=== PATIENT | female | born 1950 | race Caucasian/White ===

== ENCOUNTER → 2021-04-23 14:50 | Outpatient (BNVA) | payer MEDICARE, MEDICAID, SELFPAY | PROVIDERS: Visit Provider Physician Assistant ==

== ENCOUNTER → 2021-06-01 08:14 | Outpatient (BNVA) | payer MEDICARE, MEDICAID, SELFPAY | PROVIDERS: Visit Provider Surgery | DX: Z13.89 Encounter for screening for other disorder (principal) | CPT/HCPCS: Q3014 ==

== ENCOUNTER 2021-06-04 09:02 | Outpatient (REF) | payer MEDICARE, MEDICAID, SELFPAY ==
--- NOTE | ~2021-06-04 | XR_ITS ---
EXAMINATION: XR CHEST 2 VIEWS CLINICAL INFORMATION: History of obesity. COMPARISON: None. TECHNIQUE: Frontal and lateral views of the chest were obtained. FINDINGS: The heart, great vessels, pulmonary vasculature and mediastinum are normal. The lungs show no focal infiltrate, effusion or pneumothorax. There is no acute osseous abnormality. There is multi-level thoracic degenerative disc disease and spondylosis. XR/XR chest 2V IMPRESSION: No active cardiopulmonary disease.
--- NOTE | 2021-06-04 09:11 | ECG_ITS ---
Test Reason : E66.9 Blood Pressure : / mmHG Vent. Rate : 083 BPM Atrial Rate : 083 BPM P-R Int : 134 ms QRS Dur : 086 ms QT Int : 358 ms P-R-T Axes : 057 020 033 degrees QTc Int : 420 ms Normal sinus rhythm Normal ECG When compared with ECG of 09-JAN-2006 06:53, No significant change was found Referred By: Timo Up Electronically Signed By:CHRIS THOMPSON MD
[2021-06-04 09:25] LABS: MANUAL DIFF FLAG NO
[2021-06-04 10:08] LABS: Basophils Absolute Auto 0.1 X10*3/uL (0.0-0.2); Basophils Percent Auto 1.5 % (0-2); Eosinophils Absolute Auto 0.2 X10*3/uL (0.0-0.4); Eosinophils Percent Auto 3.9 % (0-4); Hematocrit 44.8 % (37.0-47.0); Hemoglobin 14.5 g/dl (12.0-16.0); Imm Gran Abs Auto 0.02 X10*3/uL (0.00-0.03); Imm Gran Pct Auto 0.4 % (0.0-0.4); Lymphocytes Absolute Auto 1.6 X10*3/uL (1.2-4.9); Lymphocytes Percent Auto 29.9 % (20-40); Mean Corpuscular HGB Conc 32.4 g/dl (31.0-35.0); Mean Corpuscular Hemoglobin 28.8 pg (27.0-33.0); Mean Corpuscular Volume 88.9 fL (80.0-98.0); Mean Platelet Volume 9.9 fL (9.4-12.3); Monocytes Absolute Auto 0.6 X10*3/uL (0.1-1.2); Monocytes Percent Auto 11.3 % (2-11); Neutrophils Absolute Auto 2.9 x10*3/uL (2.0-8.3); Platelet Count 193 X10*3/uL (160-400); Red Blood Count 5.04 X10*6/uL (4.20-5.50); Red Cell Distribution Width 14.2 % (11.0-16.0); White Blood Count 5.4 X10*3/uL (4.8-10.8)
[2021-06-04 10:23] LABS: Estimated Average Glucose 134 mg/dL; Hemoglobin A1c % 6.3 %
[2021-06-04 11:23] LABS: Folate 9.2 ng/mL (> or = 4.0); Vitamin B12 332 pg/mL (200-900)
[2021-06-04 11:36] LABS: Alanine Aminotransferase 45 U/L (0-31); Albumin Level 4.2 g/dL (3.5-5.0); Alkaline Phosphatase 72 U/L (39-117); Anion Gap 16 (12-20); Aspartate Amino Transferase 26 U/L (5-31); Bilirubin Total 0.7 mg/dL (0.0-1.0); Blood Urea Nitrogen 12 mg/dL (9-16); C Reactive Protein 0.13 mg/dL (< or = 0.50); Calcium 10.2 mg/dL (8.4-10.2); Carbon Dioxide 26 mmol/L (22-29); Chloride 101 mmol/L (96-108); Cholesterol 172 mg/dL; Estimated Glomerular Filt Rate > 60; Glucose Random 147 mg/dL (60-115); HDL Cholesterol 57 mg/dL; Iron 112 mcg/dL (30-160); LDL Cholesterol Calculated 102 mg/dl; Percent Iron Saturation 28 % (15-50); Potassium 4.6 mmol/L (3.3-5.1); Sodium 138 mmol/L (135-145); Total Iron Binding Capacity 401 mcg/dL (228-428); Total Protein 7.5 g/dL (6.5-8.0); Triglycerides 68 mg/dL; Unsaturated Iron Binding 289 ug/dL
[2021-06-04 12:00] LABS: Ferritin 102 ng/mL (10-250); Insulin 13 uU/mL (2-29); Vitamin D 25-OH Total 11.9 ng/mL (>30)
[2021-06-05 17:46] LABS: PTHI 60 pg/mL (14-64)
[2021-06-07 03:52] LABS: Zinc 116 mcg/dL (60-130)
[2021-06-10 10:36] LABS: Vitamin A 41 mcg/dL (38-98)
[2021-06-11 06:21] LABS: Vitamin B1 8 nmol/L (8-30)
== END 2021-06-04 09:03 | disposition home or self-care (01) ==
LOC: HO.LAB 09:02
PROVIDERS: PCP Nurse Practitioner Family; Visit Provider Surgery
DX: E66.9 Obesity, unspecified (principal); Z68.39 Body mass index [BMI] 39.0-39.9, adult; I10 Essential (primary) hypertension; E11.9 Type 2 diabetes mellitus without complications; K21.9 Gastro-esophageal reflux disease without esophagitis
CPT/HCPCS: 36415; 71046; 80053; 80061; 82306; 82607; 82728; 82746; 83036; 83525; 83540; 83970; 84425; 84443; 84590; 84630; 85025; 86140; 93005

== ENCOUNTER → 2021-06-20 14:43 | Outpatient (BNVA) | payer MEDICARE, MEDICAID, SELFPAY | PROVIDERS: PCP Nurse Practitioner Family; Visit Provider Counselor Mental Health | DX: F41.1 Generalized anxiety disorder (principal); F41.0 Panic disorder [episodic paroxysmal anxiety]; E66.9 Obesity, unspecified | CPT/HCPCS: 90791 ==

== ENCOUNTER 2021-06-21 12:33 | Outpatient (REF) | payer MEDICARE, MEDICAID, SELFPAY ==
[2021-06-22 11:10] LABS: H Pylori Breath Test Negative (Negative)
== END 2021-06-21 12:34 | disposition home or self-care (01) ==
LOC: HO.LNP 12:33
PROVIDERS: Surgery; PCP Nurse Practitioner Family; Referring Provider Nurse Practitioner Family; Visit Provider Physician Assistant
DX: E66.9 Obesity, unspecified (principal); Z68.39 Body mass index [BMI] 39.0-39.9, adult; I10 Essential (primary) hypertension; E11.9 Type 2 diabetes mellitus without complications; K21.9 Gastro-esophageal reflux disease without esophagitis
CPT/HCPCS: 83013; 99211

== ENCOUNTER → 2021-06-25 11:47 | Outpatient (BNVA) | payer MEDICARE, MEDICAID, SELFPAY | PROVIDERS: PCP Nurse Practitioner Family; Visit Provider Dietitian, Registered | DX: Z13.89 Encounter for screening for other disorder (principal) ==

== ENCOUNTER → 2021-07-02 11:31 | Outpatient (BNVA) | payer MEDICARE, MEDICAID, SELFPAY | PROVIDERS: PCP Nurse Practitioner Family; Visit Provider Dietitian, Registered | DX: Z13.89 Encounter for screening for other disorder (principal) ==

== ENCOUNTER → 2021-07-04 08:13 | Outpatient (BNVA) | payer MEDICARE, MEDICAID, SELFPAY | PROVIDERS: Visit Provider Surgery | DX: E66.9 Obesity, unspecified (principal); Z68.41 Body mass index [BMI] 40.0-44.9, adult | CPT/HCPCS: Q3014 ==

== ENCOUNTER → 2021-07-09 11:58 | Outpatient (BNVA) | payer MEDICARE, MEDICAID, SELFPAY | PROVIDERS: PCP Nurse Practitioner Family; Visit Provider Dietitian, Registered | DX: E66.9 Obesity, unspecified (principal); Z68.37 Body mass index [BMI] 37.0-37.9, adult; E11.9 Type 2 diabetes mellitus without complications; Z71.3 Dietary counseling and surveillance | CPT/HCPCS: 97802 ==

== ENCOUNTER 2021-07-23 09:30 | Outpatient (REF) | payer MEDICARE, MEDICAID, SELFPAY ==
--- NOTE | ~2021-07-23 | FL_ITS ---
EXAMINATION: XR FLUOROSCOPY UPPER GI WITH AIR CLINICAL INFORMATION: Obesity COMPARISON: None TECHNIQUE: Routine upper GI contrast study was performed. FINDINGS: Following oral administration of thick barium and effervescent granules there is normal in good flow seen from the oral cavity through the pharynx, esophagus into stomach without any evidence of obstruction, narrowing or stricture. On placing patient supine and prone there is a small hiatal hernia with mild gastroesophageal reflux. Otherwise rest of the stomach, duodenal bulb and the sweep is normal. The mucosal pattern of esophagus, stomach and the duodenum is normal. FLUOROSCOPY TIME: 1.4 minutes DOSE AREA PRODUCT: 24.301 uGy-m2 (microgray-meter squared) FL/FL upper GI w air IMPRESSION: Small sliding hiatal hernia with mild gastroesophageal reflux.
== END 2021-07-23 09:31 | disposition home or self-care (01) ==
LOC: HO.US 09:30
PROVIDERS: PCP Nurse Practitioner Family; Visit Provider Surgery
DX: E66.9 Obesity, unspecified (principal); Z68.39 Body mass index [BMI] 39.0-39.9, adult; K21.9 Gastro-esophageal reflux disease without esophagitis; I10 Essential (primary) hypertension; E11.9 Type 2 diabetes mellitus without complications
CPT/HCPCS: 74246

== ENCOUNTER 2021-07-30 09:25 | Outpatient (REF) | payer MEDICARE, MEDICAID, SELFPAY ==
--- NOTE | ~2021-07-30 | US_ITS ---
EXAMINATION: US COMPLETE ABDOMEN WITH LIVER ELASTOGRAPHY CLINICAL INFORMATION: Obesity. COMPARISON: None TECHNIQUE: Real-time imaging of the abdominal viscera. Noninvasive ultrasound liver fibrosis assessment is performed using [employer] ElastPQ point quantification shear wave elastography (2D-SWE) with a C5-2 MHz transducer. Multiple elastography samples are obtained. FINDINGS: PANCREAS: The visualized pancreatic head and body are normal in appearance. The remainder of the pancreas is obscured from visualization by the overlying bowel gas. ABDOMINAL AORTA: The proximal, middle, and distal aortic segments are normal in caliber. INFERIOR VENA CAVA: Visualized portions are normal. LIVER: The liver demonstrates normal size, contour and increased echogenicity. No focal lesion or intrahepatic biliary duct dilatation. The right lobe measures 13.3 cm in length. The left lobe measures 10.0 cm in length. Portal flow is hepatopedal. Shear wave liver elastography median stiffness is 1.39 m/s (reference: normal median stiffness is 1.3 m/s or less). IQR/median stiffness to assess sampling precision is 0.08 (reference: good quality data set is IQR/median stiffness of 0.15 or less). GALLBLADDER: Normal. The gallbladder is physiologically distended without evidence of stones, sludge, polyps, wall thickening or pericholecystic fluid. COMMON BILE DUCT: Normal in caliber measuring 0.98 cm in diameter. RIGHT KIDNEY: There is an hyperechoic area seen in midpole laterally measuring 1.5 x 1.6 x 1.8 cm suggestive of AML versus other. The kidney measures 9.8 cm in maximum dimension. LEFT KIDNEY: Normal. No hydronephrosis. No renal calculi or focal parenchymal lesions. The kidney measures 11.6 cm in maximum dimension. SPLEEN: Normal. The spleen measures 8.4 cm in maximum dimension. FREE FLUID: None. US/US abdomen comp w elastography IMPRESSION: 1. Hyperechoic area in the midpole lateral cortex right kidney suggestive of angiomyolipoma or calcification. There is no hydronephrosis in either kidney. Diffuse hepatic steatosis without focal lesion. Previous cholecystectomy. 2. Liver elastography: Median liver stiffness measures 1.39 m/s corresponding to cACLD ruled out. REFERENCE: Society of Radiologists in Ultrasound Liver Stiffness Thresholds (2020): LIVER STIFFNESS THRESHOLDS: *Liver Stiffness equal or less than 1.3 m/s: High probability of being normal. *Liver Stiffness less than 1.7 m/s: In the absence of other known clinical signs, rules out compensated advanced chronic liver disease. *Liver Stiffness 1.7-2.1 m/s: Suggestive of compensated advanced chronic liver disease but need further test for confirmation. *Liver Stiffness over 2.1 m/s: Rules in compensated advanced chronic liver disease. *Liver Stiffness over 2.4 m/s: Suggestive of clinically significant portal hypertension. QUALITY OF DATA SET: *IQR/Median value equal or less than 0.15 implies a quality data set. *IQR/Median value over 0.15 implies a poor quality data set. SIGNIFICANT CHANGE FROM PRIOR EXAM: Significant change if liver stiffness measurement is 10% or greater from prior exam. OTHER CONSIDERATIONS: The stage of liver fibrosis may be overestimated in the setting of acute hepatitis, liver inflammation, elevated liver function tests, hepatic vascular congestion, obstructive cholestasis, non-fasting state, and infiltrative diseases such as amyloidosis and lymphoma. In some patients with NAFLD, the liver stiffness thresholds for compensated advanced chronic liver disease may be lower. In causes other than viral hepatitis and NAFLD, liver stiffness thresholds are not well established.
== END 2021-07-30 09:26 | disposition home or self-care (01) ==
LOC: HO.US 09:25
PROVIDERS: Visit Provider Surgery
DX: E66.9 Obesity, unspecified (principal); Z68.39 Body mass index [BMI] 39.0-39.9, adult; K21.9 Gastro-esophageal reflux disease without esophagitis; I10 Essential (primary) hypertension; E11.9 Type 2 diabetes mellitus without complications
CPT/HCPCS: 76705; 76981

== ENCOUNTER → 2021-08-06 09:05 | Outpatient (BNVA) | payer MEDICARE, MEDICAID, SELFPAY | PROVIDERS: Visit Provider Surgery ==

== ENCOUNTER → 2021-08-17 17:19 | Outpatient (BNVA) | payer MEDICARE, MEDICAID, SELFPAY | PROVIDERS: PCP Nurse Practitioner Family; Visit Provider Surgery | DX: E66.9 Obesity, unspecified (principal); E11.9 Type 2 diabetes mellitus without complications; I10 Essential (primary) hypertension; Z68.34 Body mass index [BMI] 34.0-34.9, adult | CPT/HCPCS: Q3014 ==

== ENCOUNTER → 2021-08-22 12:27 | Outpatient (BNVA) | payer MEDICARE, MEDICAID, SELFPAY | PROVIDERS: Referring Provider Nurse Practitioner Family; Visit Provider Surgery | DX: Z13.89 Encounter for screening for other disorder (principal) ==

== ENCOUNTER 2021-08-23 | Outpatient (REF) | payer MEDICARE, MEDICAID, SELFPAY ==
[2021-08-17 14:40] VITALS: BMI 34.9
[2021-08-18 08:59] LABS: MANUAL DIFF FLAG NO
--- NOTE | 2021-08-18 09:09 | P.HPSUR_ITS ---
Pre-Procedural Eval Section A Date of Service: 08/18/21 The patient is an INPATIENT: Yes The History & Physical has been completed within 30 days and I have reviewed it.: Yes Section B Chief Complaint: obesity Relevant Family History (Specify if Yes): No Relevant Social History: None Present Medications: None Medical History: No relevant PMH History of Previous Operations: No relevant previous surgery Allergies: Allergies Allergy/AdvReac Type Severity Reaction Status Date / Time aspirin [ASPIRIN] Allergy Intermediate RASH Verified 08/17/21 21:57 ibuprofen [IBUPROFEN] Allergy Intermediate PALPITATION Verified 08/17/21 21:57 S Penicillins [PENICILLINS] Allergy Intermediate RASH Verified 08/17/21 21:57 Review of Systems Sugical H&P ROS: Negative: Constitution, Cardiovascular, Respiratory, Neurol ogical, Psychiatric, Hem-Onc, Allergic/Immunologic, Gastrointestinal, Genitourinary, Musculoskeletal, Integumentary, Endocrine and Eyes/Ears/Nose/Throat Exam Surgical H&P Exam: Normal: HEENT, Normal: Heart, Normal: Lungs, Normal: Extremities, Normal: Abdomen, Normal: Skin and Normal: Neurological Plan Diagnosis/Plan: Unchanged I have reviewed the history and physical and performed a pertinent physical examination on my patient. No changes have occurred unless specified.
[2021-08-18 09:11] LABS: Basophils Percent Auto 0.8 % (0-2); Eosinophils Absolute Auto 0.2 X10*3/uL (0.0-0.4); Eosinophils Percent Auto 3.8 % (0-4); Hematocrit 42.7 % (37.0-47.0); Hemoglobin 13.7 g/dl (12.0-16.0); Imm Gran Abs Auto 0.03 X10*3/uL (0.00-0.03); Imm Gran Pct Auto 0.6 % (0.0-0.4); Lymphocytes Absolute Auto 1.5 X10*3/uL (1.2-4.9); Lymphocytes Percent Auto 28.5 % (20-40); Mean Corpuscular HGB Conc 32.1 g/dl (31.0-35.0); Mean Corpuscular Hemoglobin 28.3 pg (27.0-33.0); Mean Corpuscular Volume 88.2 fL (80.0-98.0); Mean Platelet Volume 9.2 fL (9.4-12.3); Monocytes Absolute Auto 0.6 X10*3/uL (0.1-1.2); Monocytes Percent Auto 10.8 % (2-11); Neutrophils Absolute Auto 2.9 x10*3/uL (2.0-8.3); Neutrophils Percent Auto 55.5 % (45-73); Platelet Count 214 X10*3/uL (160-400); Red Blood Count 4.84 X10*6/uL (4.20-5.50); Red Cell Distribution Width 13.8 % (11.0-16.0); White Blood Count 5.2 X10*3/uL (4.8-10.8)
[2021-08-18 09:20] LABS: INTERNATIONAL NORM RATIO 0.9 (0.9-1.1)
[2021-08-18 09:24] LABS: Estimated Average Glucose 134 mg/dL; Hemoglobin A1c % 6.3 %
[2021-08-18 09:32] LABS: Alanine Aminotransferase 26 U/L (0-31); Albumin Level 3.8 g/dL (3.5-5.0); Alkaline Phosphatase 75 U/L (39-117); Anion Gap 13 (12-20); Aspartate Amino Transferase 16 U/L (5-31); Bilirubin Total 0.4 mg/dL (0.0-1.0); Blood Urea Nitrogen 16 mg/dL (9-16); C Reactive Protein 0.09 mg/dL (< or = 0.50); Calcium 10.1 mg/dL (8.4-10.2); Carbon Dioxide 27 mmol/L (22-29); Chloride 105 mmol/L (96-108); Cholesterol 189 mg/dL; Creatinine Clr Calc Pharmacy 72.3; Estimated Glomerular Filt Rate > 60; Glucose Random 141 mg/dL (60-115); HDL Cholesterol 48 mg/dL; LDL Cholesterol Calculated 129 mg/dl; Potassium 4.7 mmol/L (3.3-5.1); Sodium 140 mmol/L (135-145); Triglycerides 64 mg/dL
[2021-08-18 09:54] LABS: Insulin 14 uU/mL (2-29); TSH reflex Free T4 2.79 uIU/mL (0.32-4.0)
--- NOTE | 2021-08-22 09:34 | P.CONAN_ITS ---
HPI - Anesthesia Eval Consult details Narrative: 70yo F for Gastrectomy Sleeve,EGD,poss diaphragmatic hernia,poss ventral hernia,poss open, PMFSH Active Problems Active Problems: All Active Problems (Updated 08/17/21 @ 16:39 by Timo Up MD) BMI 35.0-35.9,adult (Acute) BMI 39.0-39.9,adult (Acute) Vitamin D deficiency (Acute) Vitamin B12 deficiency (Acute) Generalized anxiety disorder with panic attacks (Acute) BMI 37.0-37.9, adult (Acute) DJD (degenerative joint disease) (Acute) Anxiety (Acute) GERD (gastroesophageal reflux disease) (Acute) Non-insulin dependent type 2 diabetes mellitus (Acute) Hypertension (Acute) Obesity (Acute) Past Medical History Medical History (Updated 08/17/21 @ 16:39 by Timo Up MD) Anxiety Asthma COVID-19 vaccine series completed DJD (degenerative joint disease) GERD (gastroesophageal reflux disease) History of COVID-19 Hypertension Non-insulin dependent type 2 diabetes mellitus Obesity Family History Family History (Updated 05/29/21 @ 11:59 by Blanca Atkins LPN) Mother Alzheimer disease Father Diabetes Hypertension Brother Hypertension Diabetes Stroke Cancer Daughter Lupus Fibromyalgia Surgical History Surgical History (Updated 05/29/21 @ 11:55 by Blanca Atkins LPN) Hx of ankle fusion Hx of cholecystectomy Hx of hysterectomy Social History Social History (Updated 05/29/21 @ 11:59 by Blanca Atkins LPN) Are you a primary post acute care nurse practitioner to a significant other at home: No Do you presently have visiting nurse or other home services: No Alcohol intake: current Alcohol intake frequency: does not drink Patient Tobacco Use Status: Former Tobacco user Quit Date: age 36 Tobacco use type: Cigarette Meds Allergies Allergy/AdvReac Type Severity Reaction Status Date / Time aspirin [ASPIRIN] Allergy Intermediate RASH Verified 08/17/21 21:57 ibuprofen [IBUPROFEN] Allergy Intermediate PALPITATION Verified 08/17/21 21:57 S Penicillins [PENICILLINS] Allergy Intermediate RASH Verified 08/17/21 21:57 Home Medications Medication Instructions Recorded Confirmed Last Taken Type clonidine HCl 0.1 mg tablet 0.1 mg PO BID 05/29/21 08/17/21 Unknown History losartan 50 mg tablet 50 mg PO DAILY 05/29/21 08/17/21 Unknown History metformin 750 mg tablet,extended 750 mg PO BID 05/29/21 08/17/21 Unknown History release 24 hr omeprazole 20 mg capsule,delayed 20 mg PO DAILY 05/29/21 08/17/21 Unknown History release Exam Exam Date and Time: August 22, 2021 0934 Height,Weight and Vital Signs: Height 5 ft 2 in Weight 86.636 kg Pertinent Lab Results Pertinent Lab Results: Laboratory Tests 08/18/21 08/18/21 08/18/21 08:53 08:58 08:58 WBC 5.2 RBC 4.84 Hgb 13.7 Hct 42.7 MCV 88.2 MCH 28.3 MCHC 32.1 RDW 13.8 Plt Count 214 MPV 9.2 L Immature Gran % (Auto) 0.6 H Neut % (Auto) 55.5 Lymph % (Auto) 28.5 [place] % (Auto) 10.8 Eos % (Auto) 3.8 Baso % (Auto) 0.8 Lymph # (Auto) 1.5 [place] # (Auto) 0.6 Eos # (Auto) 0.2 Baso # (Auto) 0.0 Abs Immat Gran (auto) 0.03 Absolute Neuts (auto) 2.9 Absolute Nucleated RBC 0.000 Nucleated RBC % (auto) 0.0 PT 10.0 INR 0.9 APTT 34.0 Sodium Potassium Chloride Carbon Dioxide Anion Gap BUN Creatinine Estim Creat Clear Calc Estimated GFR Random Glucose Estimat Average Glucose Hemoglobin A1c % Insulin Level Calcium Total Bilirubin AST ALT Alkaline Phosphatase C-Reactive Protein Total Protein Albumin Triglycerides Cholesterol LDL Cholesterol, Calc HDL Cholesterol TSH Blood Type B Positive Antibody Screen NEGATIVE 08/18/21 08/18/21 08:58 08:58 WBC RBC Hgb Hct MCV MCH MCHC RDW Plt Count MPV Immature Gran % (Auto) Neut % (Auto) Lymph % (Auto) [place] % (Auto) Eos % (Auto) Baso % (Auto) Lymph # (Auto) [place] # (Auto) Eos # (Auto) Baso # (Auto) Abs Immat Gran (auto) Absolute Neuts (auto) Absolute Nucleated RBC Nucleated RBC % (auto) PT INR APTT Sodium 140 Potassium 4.7 Chloride 105 Carbon Dioxide 27 Anion Gap 13 BUN 16 Creatinine 0.76 Estim Creat Clear Calc 72.3 Estimated GFR > 60 Random Glucose 141 H Estimat Average Glucose 134 Hemoglobin A1c % 6.3 Insulin Level 14 Calcium 10.1 Total Bilirubin 0.4 AST 16 ALT 26 Alkaline Phosphatase 75 C-Reactive Protein 0.09 Total Protein 7.0 Albumin 3.8 Triglycerides 64 Cholesterol 189 LDL Cholesterol, Calc 129 HDL Cholesterol 48 TSH 2.79 Blood Type Antibody Screen
[2021-08-22 12:46] LABS: COVID-19 Test Positive (Negative); IDNOW Serial# 16C4AD1C
== END 2021-08-23 00:01 | disposition home or self-care (01) ==
LOC: HO.PAT
PROVIDERS: Physician Assistant Surgical; PCP Nurse Practitioner Family; Visit Provider Surgery
DX: Z01.818 Encounter for other preprocedural examination (principal); E66.9 Obesity, unspecified; E11.9 Type 2 diabetes mellitus without complications; I10 Essential (primary) hypertension; Z68.35 Body mass index [BMI] 35.0-35.9, adult; Z20.822 Contact with and (suspected) exposure to COVID-19
CPT/HCPCS: 36415; 80053; 80061; 83036; 83525; 84443; 85025; 85610; 85730; 86140; 86850; 86900; 86901; 87635

== ENCOUNTER 2021-08-30 07:14 | Inpatient (IN) | payer MEDICARE, MEDICAID, SELFPAY ==
[2021-08-28 14:17] LABS: COVID-19 Test Negative (Negative); IDNOW Serial# 9DB6401D
--- NOTE | 2021-08-29 09:06 | P.CONAN_ITS ---
Documented by User: Chani Dong NP 08/29/21 09:07 HPI - Anesthesia Eval Consult details Narrative: 70yo F for Gastrectomy Sleeve,EGD,poss diaphragmatic hernia,poss ventral hernia,poss open, PMFSH Active Problems Active Problems: All Active Problems (Updated 08/25/21 @ 17:21 by Timo Up MD) COVID (Acute) BMI 35.0-35.9,adult (Acute) BMI 39.0-39.9,adult (Acute) Vitamin D deficiency (Acute) Vitamin B12 deficiency (Acute) Generalized anxiety disorder with panic attacks (Acute) BMI 37.0-37.9, adult (Acute) DJD (degenerative joint disease) (Acute) Anxiety (Acute) GERD (gastroesophageal reflux disease) (Acute) Non-insulin dependent type 2 diabetes mellitus (Acute) Hypertension (Acute) Obesity (Acute) Past Medical History Medical History (Updated 08/30/21 @ 11:41 by Timo Up MD) Anxiety Asthma COVID-19 vaccine series completed DJD (degenerative joint disease) GERD (gastroesophageal reflux disease) History of COVID-19 Hypertension Intra-abdominal adhesions Non-insulin dependent type 2 diabetes mellitus Obesity Steatosis, liver Family History Family History (Updated 05/29/21 @ 11:59 by Blanca Atkins LPN) Mother Alzheimer disease Father Diabetes Hypertension Brother Hypertension Diabetes Stroke Cancer Daughter Lupus Fibromyalgia Surgical History Surgical History (Updated 08/30/21 @ 11:41 by Timo Up MD) Hx of ankle fusion Hx of cholecystectomy Hx of hysterectomy Social History Social History (Updated 05/29/21 @ 11:59 by Blanca Atkins LPN) Are you a primary hemodialysis patient care specialist to a significant other at home: No Do you presently have visiting nurse or other home services: No Alcohol intake: current Alcohol intake frequency: does not drink Patient Tobacco Use Status: Former Tobacco user Quit Date: age 36 Tobacco use type: Cigarette Use of substances other than those prescribed or required for medical reasons: No Are you DNR?: No Advance Directives: No Advance Directives Information Provided: No Meds Allergies Allergy/AdvReac Type Severity Reaction Status Date / Time aspirin [ASPIRIN] Allergy Intermediate RASH Verified 08/30/21 07:49 ibuprofen [IBUPROFEN] Allergy Intermediate PALPITATION Verified 08/30/21 07:49 S Penicillins [PENICILLINS] Allergy Intermediate RASH Verified 08/30/21 07:49 Home Medications Medication Instructions Recorded Confirmed Last Taken Type clonidine HCl 0.1 mg tablet 0.1 mg PO BID 05/29/21 08/17/21 Unknown History losartan 50 mg tablet 50 mg PO DAILY 05/29/21 08/17/21 Unknown History metformin 750 mg tablet,extended 750 mg PO BID 05/29/21 08/17/21 Unknown History release 24 hr omeprazole 20 mg capsule,delayed 20 mg PO DAILY 05/29/21 08/17/21 Unknown History release Exam Exam Date and Time: August 29, 2021 09 Pertinent Lab Results Pertinent Lab Results: Laboratory Tests 08/28/21 13:35 COVID-19 (FELIZ) Negative COVID-19 Clin Com See Note Laboratory Tests ? 08/18/21 08/18/21 08/18/21 ? 08:53 08:58 08:58 WBC ? ?5.2 ? RBC ? ?4.84 ? Hgb ? ?13.7 ? Hct ? ?42.7 ? MCV ? ?88.2 ? MCH ? ?28.3 ? MCHC ? ?32.1 ? D RDW ? ?13.8 ? Plt Count ? ?214 ? MPV ? ?9.2 L ? Immature Gran % (Auto) ? ?0.6 H ? Neut % (Auto) ? ?55.5 ? Lymph % (Auto) ? ?28.5 ? [place] % (Auto) ? ?10.8 ? Eos % (Auto) ? ?3.8 ? Baso % (Auto) ? ?0.8 ? Lymph # (Auto) ? ?1.5 ? [place] # (Auto) ? ?0.6 ? Eos # (Auto) ? ?0.2 ? Baso # (Auto) ? ?0.0 ? Abs Immat Gran (auto) ? ?0.03 ? Absolute Neuts (auto) ? ?2.9 ? Absolute Nucleated RBC ? ?0.000 ? Nucleated RBC % (auto) ? ?0.0 ? PT ?B ? ?10.0 INR ? ? ?0.9 APTT ? ? ?34.0 Sodium ? ? ? Potassium ? ? ? Chloride ? ? ? Carbon Dioxide ? ? ? Anion Gap ? ? ? BUN ? ? ? Creatinine ? ? ? Estim Creat Clear Calc ? ? ? Estimated GFR ? ? ? Random Glucose ? ? ? Estimat Average Glucose ? ? ? Hemoglobin A1c % ? ? ? Insulin Level ? ? ? Calcium ? ? ? Total Bilirubin ? ? ? AST ? ? ? ALT ? ? ? Alkaline Phosphatase ? ? ? C-Reactive Protein ? ? ? Total Protein ? ? ? Albumin ? ? ? Triglycerides ? ? ? Cholesterol ? ? ? LDL Cholesterol, Calc ? ? ? HDL Cholesterol ? ? ? TSH ? ? ? Blood Type ?B Positive ? ? Antibody Screen ?NEGATIVE ? ? ? 08/18/21 08/18/21 ? 08:58 08:58 WBC ? ? RBC ? ? Hgb ? ? HctB ? ? MCV ? ? MCH ? ? MCHC ? ? RDW ? ? Plt Count ? ? MPV ? ? Immature Gran % (Auto) ? ? Neut % (Auto) ? ? Lymph % (Auto) ? ? [place] % (Auto) ? ? Eos % (Auto) ? ? Baso % (Auto) ? ? Lymph # (Auto) ? ? [place] # (Auto) ? ? Eos # (Auto) ? ? Baso # (Auto) ? ? Abs Immat Gran (auto) ? ? Absolute Neuts (auto) ? ? Absolute Nucleated RBC ? ? Nucleated RBC % (auto) ? ? PT ? ? INR ? ? APTT ? ? Sodium ?140 ? Potassium ?4.7 ? Chloride ?105 ? Carbon Dioxide ?27 ? Anion Gap ?13 ? BUN ?16 ? Creatinine ?0.76 ? Estim Creat Clear Calc ?72.3 ? Estimated GFR ?> 60B ? Random Glucose ?141 H ? Estimat Average Glucose ? ?134 Hemoglobin A1c % ? ?6.3 Insulin Level ?14 ? Calcium ?10.1 ? Total Bilirubin ?0.4 ? AST ?16 ? ALT ?26 ? Alkaline Phosphatase ?75 ? C-Reactive Protein ?0.09 ? Total Protein ?7.0 ? Albumin ?3.8 ? Triglycerides ?64 ? Cholesterol ?189 ? LDL Cholesterol, Calc ?129 ? HDL Cholesterol ?48 ? TSH ?2.79 ? Blood Type ? ? Antibody Screen ? ? Narrative Narrative: EKG 05/2021 Vent. Rate : 083 BPM ? ? Atrial Rate : 083 BPM ?? P-R Int : 134 ms? QRS Dur : 086 ms ? ? QT Int : 358 ms ? ? ? P-R-T Axes : 057 020 033 degrees ?? QTc Int : 420 ms ? Normal sinus rhythm Normal ECG When compared with ECG of 09-JAN-2006 06:53, No significant change was found Assessment and Plan Assessment Anesthesia Assessment: Chart Reviewed Documented by User: Maximino Tamez MD 08/30/21 13:57 HPI - Anesthesia Eval Consult details Narrative: 70yo F for Gastrectomy Sleeve,EGD,poss diaphragmatic hernia,poss ventral hernia,poss open, COVID postive on 08/07/21 . Denies any respiratory symptoms currently Covid negative on 08/28/21 Explained to the patient increased risk during the beatriz-operative period . [facility] Past Medical History Medical History (Updated 08/30/21 @ 11:41 by Timo Up MD) Anxiety Asthma COVID-19 vaccine series completed DJD (degenerative joint disease) GERD (gastroesophageal reflux disease) History of COVID-19 Hypertension Intra-abdominal adhesions Non-insulin dependent type 2 diabetes mellitus Obesity Steatosis, liver Family History Family History (Updated 05/29/21 @ 11:59 by Blanca Atkins LPN) Mother Alzheimer disease Father Diabetes Hypertension Brother Hypertension Diabetes Stroke Cancer Daughter Lupus Fibromyalgia Family history of problems with anesthesia: No Surgical History Surgical History (Updated 08/30/21 @ 11:41 by Timo Up MD) Hx of ankle fusion Hx of cholecystectomy Hx of hysterectomy History of Problems with Anesthesia: Yes (Ponv ) Social History Social History (Updated 05/29/21 @ 11:59 by Blanca Atkins LPN) Are you a primary hemodialysis patient care specialist to a significant other at home: No Do you presently have visiting nurse or other home services: No Alcohol intake: current Alcohol intake frequency: does not drink Patient Tobacco Use Status: Former Tobacco user Quit Date: age 36 Tobacco use type: Cigarette Use of substances other than those prescribed or required for medical reasons: No Are you DNR?: No Advance Directives: No Advance Directives Information Provided: No Meds Allergies Allergy/AdvReac Type Severity Reaction Status Date / Time aspirin [ASPIRIN] Allergy Intermediate RASH Verified 08/30/21 07:49 ibuprofen [IBUPROFEN] Allergy Intermediate PALPITATION Verified 08/30/21 07:49 S Penicillins [PENICILLINS] Allergy Intermediate RASH Verified 08/30/21 07:49 Home Medications Medication Instructions Recorded Confirmed Last Taken Type clonidine HCl 0.1 mg tablet 0.1 mg PO BID 05/29/21 08/17/21 Unknown History losartan 50 mg tablet 50 mg PO DAILY 05/29/21 08/17/21 Unknown History metformin 750 mg tablet,extended 750 mg PO BID 05/29/21 08/17/21 Unknown History release 24 hr omeprazole 20 mg capsule,delayed 20 mg PO DAILY 05/29/21 08/17/21 Unknown History release Exam Airway Mallampati Class: III TM Dist: >3cm Neck ROM: Full Denture: Upper Partial: Lower Loose/Missing/Broken Teeth: Yes Heart: S1,S2 Lungs: b/l breath sounds Assessment and Plan Final Anesthetic Review Family History of Problems with Anesthesia: No History of Problems with Anesthesia: Yes (Ponv ) NPO: Yes ASA Class: III Final Preanesthetic Review: Meds/Allgs Chart Reviewed, Consent Obtained/Reviewed and Anes Risks/Benef Reviewed Patient Risk: High Procedure Risk: Intermediate Anesthetic Plan Anesthetic Plan: GA Disposition: Inp. Admit - Standard Bed
[2021-08-30] VITALS (36 sets, daily range): BP systolic 143–187; BP diastolic 86–106; PULSE 85–109; RESP 12–18; TEMP 36.1–36.6; O2SAT 96–98; BMI 34.2
--- NOTE | ~2021-08-30 | XR_ITS ---
EXAMINATION: XR CHEST CLINICAL INFORMATION: Covid 19 COMPARISON: June 04, 2021 TECHNIQUE: 2 views of the chest were obtained. FINDINGS: No significant abnormality is noted involving the heart, lungs, mediastinum, bony thorax or soft tissues. XR/XR chest 2V IMPRESSION: No acute disease.
[2021-08-30 07:47] LABS: Glucose, Whole Blood 128 mg/dL (60-115)
[2021-08-30] MEDS: Lactated Ringers 1,000 ML 100 ML IVCONT ×3 (08:01→22:32)
[2021-08-30] MEDS: Lactated Ringers 1,000 ML 999 ML IV (08:02)
--- NOTE | 2021-08-30 08:18 | PM.OP ---
Brief Operative Note Date of Service: 08/30/21 Pre-op diagnosis: Severe obesity with comorbidities (see below) Post-op diagnosis: same Procedure: INITIAL PATIENT BMI ON PRESENTATION AT OUR OFFICE: 39.2 kg/m2 LAST BMI BEFORE SURGERY: 35 kg/m2 COMORBIDITIES: non-insulin dependent diabetes, hypertension, GERD, anxiety, dipahragmatic hernia, liver steatosis, asthma ?The patient presented to the Weight Management Program with significant obesity that was negatively impacting the patient's comorbidities as listed above.? The program is a phased program with a special focus on preoperative medical weight management to promote substantial weight loss and prepare the patients for the second phase of the program: bariatric surgery. The patient participated in an intensive weekly lifestyle ?intervention and exercise program during which the patient ?has lost between the initial office visit and the last preoperative visit 24.2lbs, or 11.3% of initial actual body weight. It was deemed appropriate for the patient to now have bariatric surgery. In light of the current Covid-19 pandemic and the well documented strong association of obesity and increased risk of worse outcomes if infected with Covid-19 (REFERENCES:https://pubmed.ncbi.nlm.nih.gov/14514728/,?https://pubmed.ncbi.nlm.nih.gov/08825014/), any delay in undergoing bariatric surgery may lead to the patient's worsening health condition and increased?risk of more severe Covid-19 disease if infected. In addition a recent?study from [facility] published in [facility] on 03/26/2021 ([email or web address]) found that, among patients with obesity, substantial weight loss achieved with surgery was associated with improved outcomes of COVID-19 infection. The findings suggest that obesity can be a modifiable risk factor for the severity of COVID-19 infection. In addition, the patient met the BMI-criteria for bariatric surgery based on the BMI on initial presentation. The patient should not be penalized for achieving such weight loss because ?it is not sustainable long-term without surgical intervention and it was achieved in preparation for bariatric surgery ?under my direction and based on my published research ([email or web address]).[email or web address] and?[email or web address]/pdf) ?that a 10% preoperative weight loss improves long-term weight loss after surgery and reduces perioperative complications.? Insurance carriers such as [facility] have endorsed my recommendations ?and have included in their policies criteria to include a 10% preoperative weight loss requirement. PROCEDURE: Esophago-gastroscopy, laparoscopic repair of incarcerated diaphragmatic hernia, extensive laparoscopic lysis of adhesions, laparoscopic sleeve gastrectomy and laparoscopic gastropexy INDICATIONS: This is a 70 year-old female who was electively scheduled for laparoscopic, possibly open sleeve gastrectomy. The risks and complications of the procedure were discussed with the patient in advance, particularly the possibility of ; pulmonary embolism; staple line leak; bleeding; GERD; cardiac, pulmonary, or renal complications; as well as long-term problems such as insufficient weight loss, vitamin deficiency, strictures, or ulcers. The patient understood all the risks, and was in agreement to proceed with surgery. DESCRIPTION OF PROCEDURE: After informed consent was obtained from the patient, the patient was given preoperative antibiotics, and was transferred to the operating room. After successful induction of general anesthesia, pneumatic compression devices were placed on both lower extremities. An upper endoscopy was performed next. The oropharynx and esophagus appeared to be within normal limits. There was a diaphragmatic hernia present of moderate size consistent with the findings of the preoperative upper GI. The stomach was entered. Then after all fluid and air were suctioned and the stomach was fully decompressed, the scope was withdrawn and secured in the mid esophagus. The patient was then prepped and draped in the usual sterile manner, and abdominal access was established at the left upper quadrant with the Veress needle due to the open cholecystectomy. The abdomen was insufflated with CO2 to a pressure of 15 mmHg. An extra 5 mm Versi-step was placed in the left mid-abdomen at the level of the anterior axillary line. The camera was inserted and no injury was noted. An additional extra 5 mm Versi-step port was placed at the umbilicus to the left of the midline to facilitate the adhesiolysis. Once the adhesions were lysed a 12 mm port was placed at the right upper quadrant with the Laurie technique. Under direct visualization, additional ports were placed, specifically two 5 mm Versi-step ports to the left upper quadrant, and a 5 mm Versi-Step port to the right upper quadrant. 1% lidocaine plain was used to infiltrate all port sites as well as all fascia defects. There were extensive adhesions in the abdomen from previous open cholecystectomy involving the omentum, the stomach, the liver and the anterior abdominal wall. Those were lysed completely with the ultrasonic device taking an additional hour to complete.. Following that, the patient was placed in a steep reverse Trendelenburg position. An additional 5 mm port was placed to the right flank for the Mediflex retractor that was used to retract the left lobe of the liver. The gastro-esophageal fat pad was opened with the ultrasonic device (Thunderbeat, Olympus) and the anterior esophagus and hiatus were exposed. The angle of His was opened with the ultrasonic device the fundus of the stomach from any diaphragmatic and splenic attachments. I then opened the gastrocolic ligament between the transverse colon and the greater curvature of the stomach with the ultrasonic device to enter the lesser sac and facilitate the ligation of the short gastric vessels. I started at a mid-point along the greater curvature and using the Thunderbeat, all short gastric vessels were divided all the way to the angle of His until the left ann was completely dissected at its entirety. I then divided the gastro-colic ligament distally to a distance of about 3-4 cm proximal to the pylorus. There was an obvious significant-sized hiatal hernia. I continued dissecting along the hiatus toward the left ann and the angle of His. I fully mobilized the fat pad that was incarcerated in the hernia. I then continued by dissecting even further into the posterior retro-esophageal space all the way to the angle of His. I continued to mobilize the esophagus into the mediastinum circumferentially. Both vagal nerves were seen and preserved. At that point, I was able to have at least 3 to 5 cm of esophagus into the abdomen.? After I completely mobilized the esophagus from both the left and right ann and I had a good mobilization of the esophagus circumferentially, I closed the hernia defect with four interrupted #0 Surgidac sutures using the Endo Stitch device, ?two of which was placed posterior and two of which anterior to the esophagus. ? The stomach was then divided transversely with one Endo HARPREET-45 purple, two HARPREET-45 orange loads and three HARPREET-60 articulating orange loads using the AEON stapler and loads. Every effort was made that the gastric sleeve had a tubular shape and an even caliber throughout. Once the sleeve resection was completed, the staple line of the gastric sleeve was reinforced with Hemoclips. The resected stomach was retrieved without difficulty from the Laurie port. A gastropexy was then performed in order to prevent postoperative GERD and partial gastric volvulus. Several interrupted 2.0 Surgidac sutures were placed between the sleeve's staple line and the previously divided greater omentum and gastro-colic ligament using the Endo-Stitch device. ?An upper endoscopy was performed. There was no narrowing at the GE junction. The scope was easily advanced all the way to the pylorus which was clearly visualized. There was no narrowing anywhere and the sleeve's caliber was even throughout. The sleeve's staple line was inspected and there was no evidence of ischemia, bleeding or dehiscence. At that point the gastroscope was withdrawn from the patient?s mouth while we were decompressing the bowel and the stomach from any remaining air. I looked into the lesser sac to see how the sleeve was situating and it was situating well. There was no bleeding from the staple line, spleen, or short gastric vessels. The Mediflex retractor was removed, and the undersurface of the liver was inspected and there was no bleeding. The patient was placed in supine position. I closed the fascial defect of the 12 mm port site with a figure of eight #1 Polysorb suture. Then 100 cc 0.25 % Marcaine plain with 10 mg of Dexamethasone were used to infiltrate the fascial closure as well as all skin incisions. A total of 7ml of Zynrelef was placed in the Laurie wound. At this point, the abdomen was deflated, all ports were removed under direct vision, and no bleeding was noted from any of the port sites. The skin incisions were irrigated with saline and were closed with 4-0 absorbable monofilament sutures. Steri-Strips and OpSites were used to cover all incisions. The patient was extubated and was transferred in stable condition to the recovery room for further care. I was present and performed all us parts of the procedure. Greenberg was the registered sales assistant. There were no residents to assist with this case. Selvin Up MD, PhD, FACS Surgeon: Timo Up MD Anesthesia: GETA, local and none (TAP block) Was an Environmental Inspector used for this Procedure?: No Environmental Inspector: Javad Greenberg Estimated blood loss (mL): 10 Pathology: other (Stomach) Condition: stable Disposition: PACU
--- NOTE | 2021-08-30 08:22 | PM.PNGS ---
Subjective Subjective Date of Service: 08/31/21 Interval history: No incision pain or nausea. Significant headache and weakness Has not started phase 1 Physical Exam Vital Signs: Vital Signs: Last Vital Signs Temp 97.2 F 08/30/21 07:36 Pulse 89 08/30/21 07:36 Resp 17 08/30/21 07:36 BP 143/87 H 08/30/21 07:36 Pulse Ox 98 08/30/21 07:36 BMI result Body Mass Index 34.2 GI: Inspection: Yes normal to inspection, Yes incision (clean, dry and intact) and Yes obesity Extrem: Right lower extremity: normal to inspection (no calf tenderness) Left lower extremity: normal to inspection (no calf tenderness) Objective Data Active Medications Albuterol Sulfate (Albuterol Sulfate (0.083%) 2.5 Mg/3 Ml Vial.Neb) 2.5 mg INHALE ONCE PRN PRN Reason: Shortness of Breath/Wheezing Lactated Ringer's (Lr) 1,000 mls @ 999 mls/hr IV .Q1H1M [facility] Stop: 08/30/21 09:15 Last Admin: 08/30/21 08:02 Dose: 999 mls/hr Documented by: PATRICE Lactated Ringer's (Lr) 1,000 mls @ 100 mls/hr IVCONT .Q10H [facility] Last Admin: 08/30/21 08:01 Dose: 100 mls/hr Documented by: PATRICE Labs CBC & Chem 7: 08/31/21 05:23 08/31/21 05:23 Labs: Laboratory Results - last 24 hr 08/18/21 08/30/21 08:53 07:34 POC Glucose 128 H Blood Type B Positive Antibody Screen NEGATIVE Procedures Date of Service Date of Service: 08/31/21 Progress Note: A&P Assessment and plan (1) Obesity: Status: Acute Assessment and Plan: s/p laparoscopic sleeve gastrectomy, lysis of adhesions repair of diaphragmatic hernia, and gastropexy Reduce IV fluids. Lasix for the high blood pressure. May be contributing to the headache We will re-assess later (2) BMI 35.0-35.9,adult: Status: Acute (3) Hypertension: Status: Acute (4) Non-insulin dependent type 2 diabetes mellitus: Status: Acute (5) GERD (gastroesophageal reflux disease): Status: Acute (6) Anxiety: Status: Acute (7) DJD (degenerative joint disease): Status: Acute (8) Diaphragmatic hernia: Status: Acute (9) Steatosis, liver: Status: Acute (10) Intra-abdominal adhesions: Status: Acute (11) Status post sleeve gastrectomy: Status: Acute (12) S/P repair of paraesophageal hernia: Status: Acute Time Spent With Patient Time: Total time spent is greater than 50% in coordination of care (as documented) at patient's floor/unit and/or counseling patient: Quality Stroke Does the patient have a stroke diagnosis?: No VTE Prior VTE?: No VTE Risk Level:: Surgical - moderate VTE Device Contraindication: N/A - Device Ordered VTE Drug Contraindication: Treatment Not Indicated
--- NOTE | 2021-08-30 11:56 | PM.DS ---
DS: Providers Provider Date of Service: 08/31/21 Date of admission: 08/30/21 07:14 Primary care physician: ROMELIA Haynes DS: Diagnosis Discharge Diagnosis (1) Obesity: Status: Acute (2) BMI 35.0-35.9,adult: Status: Acute (3) Hypertension: Status: Acute (4) Non-insulin dependent type 2 diabetes mellitus: Status: Acute (5) GERD (gastroesophageal reflux disease): Status: Acute (6) Anxiety: Status: Acute (7) DJD (degenerative joint disease): Status: Acute (8) Diaphragmatic hernia: Status: Acute (9) Steatosis, liver: Status: Acute (10) Intra-abdominal adhesions: Status: Acute (11) Status post sleeve gastrectomy: Status: Acute (12) S/P repair of paraesophageal hernia: Status: Acute DS: Summary Hospital Course Hospital Course: ADMITTING DIAGNOSIS: obesity, anxiety, GERD, HTN, NIDDM ? DISCHARGE DIAGNOSIS: same, s/p laparoscopic sleeve gastrectomy and repair diaphragmatic hernia ? PAST SURGICAL HISTORY: cholecystectomy, hysterectomy ? PROCEDURE: upper endoscopy, laparoscopic sleeve gastrectomy and repair of diaphragmatic hernia hernia ? DISCHARGE SUMMARY: ? History of Present Illness: ? The patient is a?70 year-old woman with a BMI of?39.2 kg/m2 and associated co-morbidities as described above. The patient had extensive work-up,lost?23.8 lbs preoperatively and was electively scheduled for laparoscopic, possible open sleeve gastrectomy and gastropexy. Risks and complications of the surgery were discussed with the patient in advance, particularly the possibility of , pulmonary embolism, anastomotic leak, bleeding, bowel injury, GERD, cardiac, renal or pulmonary complications. The patient understood all the risks and was in agreement with the surgical plan. ? Hospital Course: ? The patient underwent an uneventful laparoscopic sleeve gastrectomy with gastropexy and repair of diaphragmatic hernia on the day of admission. Postoperatively, the patient was transferred to the surgical floor. The patient received IV Acetaminophen and IV dilaudid for pain control. Patient was started on bariatric phase 1 diet POD #0. On postoperative day one, the patient was feeling well without nausea, vomiting, fevers, or tachycardia. The patient had some mild incisional pain and the abdomen was soft. ? On the morning of postoperative day one, the patient was continued on 1 ounce of water or ice every half hour. During the day, the patient did fairly well, having some incisional pain, but able to ambulate adequately and to tolerate liquids well. ? Since the patient is doing well, we decided that the patient was ready to be discharged. The patient was given instructions to follow-up with me next week and to call my office for any fever over 101, persistent abdominal pain, nausea, vomiting, GERD, symptoms of DVT such as calf tenderness, or leg swelling, or pulmonary embolism such as chest pain or shortness of breath. The patient was also instructed to drink 40-60 ounces of liquids per day using the 1-ounce cups. The patient had been given prescriptions for Tylenol for pain, Zofran prn for nausea, and pantoprazole and carafate previously. The patient was encouraged to ambulate and use the incentive spirometer. The patient was allowed to shower, but no baths, and encouraged to stay active at home. All of these instructions were given to the patient personally. All questions were answered and the patient understood all instructions, the instructions were also given to the patient in print. Time Spent with Patient Time attestation: Total time spent providing and/or coordinating discharge services: Discharge coordination time: Less than 30 minutes Quality: Safe Use of Opioids Does Pt have an Active Cancer Diagnosis on the Problem List?: No Quality: Stroke Does the patient have a stroke diagnosis?: No Physical Exam Vital Signs: Vital Signs: Last Vital Signs Temp 97.2 F 08/30/21 07:36 Pulse 89 08/30/21 07:36 Resp 17 08/30/21 07:36 BP 143/87 H 08/30/21 07:36 Pulse Ox 98 08/30/21 07:36 BMI result Body Mass Index 34.2 DS: Data Data Completed and Pending Pending studies at discharge: Pending at discharge 08/30/21 11:06 Surgical [PTH] Routine Labs on day of discharge: Laboratory Results - last 24 hr 08/18/21 08/30/21 08:53 07:34 POC Glucose 128 H Blood Type B Positive Antibody Screen NEGATIVE Discharge Plan Discharge Patient Disposition: Home, Self-Care Discharge Diagnosis: s/p laparoscopic sleeve gastrectomy and repair of paraesophageal hernia Referrals: Lakisha Terrell FNP [Primary Care Provider] - 1 Week Discharge Medications: Continued pantoprazole 40 mg tablet,delayed release (DR/EC) 40 mg PO DAILY Qty: 30 2RF sucralfate 100 mg/mL suspension 10 ml PO BID Qty: 400 2RF ondansetron HCl 4 mg tablet 4 mg PO Q12H Qty: 20 0RF losartan 50 mg tablet 50 mg PO DAILY Qty: 0 0RF Rx Instructions: Be sure to check BP daily and communicate to Dr Radford clonidine HCl 0.1 mg tablet 0.1 mg PO BID Qty: 0 0RF Rx Instructions: Be sure to check BP daily and communicate to Dr Radford Discontinued cholecalciferol (vitamin D3) 125 mcg (5,000 unit) capsule 125 mcg PO DAILY Qty: 30 2RF mecobalamin (vitamin B12) 1,000 mcg tablet,disintegrating 1,000 mcg sublingual DAILY Qty: 30 2RF Rx Instructions: place tablet under tongue and allow to dissolve for at least30 secs before swallowing polyethylene glycol 3350 [Miralax] 17 gram powder in packet 17 g PO DAILY Qty: 14 0RF Rx Instructions: Please do 7 packets, mixing each one with 8oz of water on 08/21/21 and another 7 packets on 08/22/21 metformin 750 mg tablet extended release 24 hr 750 mg PO BID 0RF omeprazole 20 mg capsule,delayed release(/EC) 20 mg PO DAILY 0RF Discharge Orders: Discharge Order (Routine); Ordered 08/31/21 Ordered By: Zayra Carver Diet: other Activity on Discharge: No heavy lifting Stand Alone Forms: Patient Portal Discharge page Care Plan Goals: weight loss Health Concerns: obesity Plan of Treatment: No tub baths, sex or returning to work until discussed at first post op appointment. No exercise, alcohol, tobacco or illegal drug use. Continue to use incentive spirometer hourly while awake. Walk in home for 5- 10 minutes every 2 hours during the first week. Follow all instructions in the bariatric handbook and call with any questions.Discharge Instructions 1. Please call your doctor or come back to the emergency room should any new symptoms arise. 2. You will receive a courtesy call from [facility] 24-48 hours after discharge. 3. Activity: abstain from alcohol, practice limited stair climbing, no bending, no driving, no exercise, no illicit substances, no lifting, no sex, no tub bath, no work. 4. Diet: continue as discussed with Dr. Up. 5. Dressing Change/Wound Care: Your incision is covered by clear bandages and guaze underneath. If the area is tender, you may apply an ice pack for short intervals (no more than 20 minutes on, followed by at least 20 minutes off). Do not apply heat. Do not use creams, lotions, or topical antibiotics unless instructed to do so by your surgeon. These can cause infection or allergic reaction. 6. Call your doctor if: - Your temperature exceeds 101.5 F - You experience excessive pain or swelling - You have an unexpected reaction to medication - You have excessive bleeding - You experience continued vomiting/nausea - Your incision begins to separate - Your incision shows signs of infection such as increased redness, swelling, excessive pain, heat, or drainage (light blood or clear fluid is normal) 7. General instructions: No lifting greater than 5 lbs for the next 4 weeks[address] driving within 24 hours of taking narcotic pain medications. If you do not move your bowels in the next 2 days, please take milk of magnesia over the counter. Please follow the post op diet and do not advance your diet until you are seen in the office in about 2 weeks. Please walk around your home every hour or two to prevent blood clots from forming in your legs. You do not need to wake from sleeping to walk. Please sleep in a bed or couch to prevent kinking at the hips and knees. Please take your incentive spirometer (your lung planishing hammer operator) home with you and use it for the next few days to prevent pneumonias. You may shower, no hot tubs, baths or swimming pools. Please call the office with any questions or concerns such as increasing abdominal pain, fever, chills, shortness of breath, chest pain, leg pain or swelling, or redness or drainage from your incisions. Please stay on stage 3 diet which includes sugar free clear liquids such as ice pops and jello and broth and crystal light. Avoid all carbonation. Please drink 3 protein shakes with at least 25-30 grams of protein daily or 3 of the Celebrate 4:1 shakes which can be purchased in our office. The Celebrate shakes have all of the bariatric vitamins you need if you consume these shakes. If you are drinking other protein shakes, you will need to purchase the Celebrate multivitamins and calcium that we provide in the office (they will provide all the vitamins you need). Please make sure you are consuming at least 40-60 ounces of water in addition to your 3 protein shakes daily. Do not hesitate to contact the office with any questions at . The patient's medical history has been reviewed and they are considered low risk for post op DVT and therefore DVT prophylaxis is not considered necessary. Travel after surgery was reviewed. The patient has not disclosed any travel plans during the first 30 days after surgery and they have been advised that within the first 30 days after surgery any bus, plane, train or car travel over 2 hours in duration is contraindicated due to the possibility of developing blood clots from immobility. Any travel, needs to include periods of ambulation of 10 minutes in duration every 2 hours.? The patient was instructed to discuss any plans for travel during this period with their bariatric surgeon. Assessment: stable s/p laparoscopic sleeve gastrectomy and paraesophageal hernia repair
[2021-08-30] MEDS: Famotidine/PF 20 MG/2 ML VIAL IVPUSH ×2 (12:09→20:53)
[2021-08-30] MEDS: HYDROmorphone HCl 0.5 MG/0.5 ML SYRINGE 0.25 MG IVPUSH ×4 (12:27→14:50)
[2021-08-30 12:36] LABS: Hematocrit 40.4 % (37.0-47.0); Hemoglobin 13.2 g/dl (12.0-16.0)
[2021-08-30 12:52] LABS: Anion Gap 12 (12-20); Blood Urea Nitrogen 16 mg/dL (9-16); Carbon Dioxide 22 mmol/L (22-29); Chloride 106 mmol/L (96-108); Creatinine Clr Calc Pharmacy 76.6; Estimated Glomerular Filt Rate > 60; Glucose Random 205 mg/dL (60-115); Sodium 136 mmol/L (135-145)
[2021-08-30] MEDS: hydrALAZINE HCl 20 MG/ML VIAL 5 MG IVPUSH ×3 (14:14→15:32)
[2021-08-30 16:02] LABS: Glucose, Whole Blood 198 mg/dL (60-115)
[2021-08-30] MEDS: HYDROmorphone HCl 0.5 MG/0.5 ML SYRINGE IVPUSH (16:09)
[2021-08-30] MEDS: ondansetron HCL 4 MG/2 ML VIAL IVPUSH ×2 (17:09→20:55)
--- NOTE | 2021-08-30 18:18 | PC.NURSE ---
patient is very drowsy,will give losartan when patient more alert. bp stabilized in PACU
[2021-08-30] MEDS: Losartan Potassium 50 MG TABLET PO (19:30)
[2021-08-30] MEDS: cloNIDine HCL 0.1 MG TABLET PO (20:56)
[2021-08-30 21:21] LABS: Glucose, Whole Blood 202 mg/dL (60-115)
[2021-08-30] MEDS: Metoprolol Tartrate 5 MG in 0.9 % Sodium Chloride 50 ML 220 MG IV (22:31)
[2021-08-31 01:45] VITALS: BP 173/74
[2021-08-31 03:19] VITALS: BP 172/84; PULSE 74; RESP 16; TEMP 36.9; O2SAT 96
[2021-08-31] MEDS: Metoprolol Tartrate 5 MG in 0.9 % Sodium Chloride 50 ML 220 MG IV ×2 (04:01→09:58)
[2021-08-31] MEDS: ondansetron HCL 4 MG/2 ML VIAL IVPUSH (05:58)
[2021-08-31 06:17] LABS: MANUAL DIFF FLAG NO
[2021-08-31 06:26] LABS: Basophils Percent Auto 0.1 % (0-2); Hematocrit 40.3 % (37.0-47.0); Hemoglobin 13.3 g/dl (12.0-16.0); Imm Gran Abs Auto 0.03 X10*3/uL (0.00-0.03); Imm Gran Pct Auto 0.3 % (0.0-0.4); Lymphocytes Absolute Auto 0.8 X10*3/uL (1.2-4.9); Lymphocytes Percent Auto 8.3 % (20-40); Mean Corpuscular Volume 87.8 fL (80.0-98.0); Mean Platelet Volume 9.8 fL (9.4-12.3); Monocytes Absolute Auto 0.7 X10*3/uL (0.1-1.2); Neutrophils Absolute Auto 7.9 x10*3/uL (2.0-8.3); Neutrophils Percent Auto 84.3 % (45-73); Platelet Count 175 X10*3/uL (160-400); Red Blood Count 4.59 X10*6/uL (4.20-5.50); Red Cell Distribution Width 14.4 % (11.0-16.0); White Blood Count 9.4 X10*3/uL (4.8-10.8)
[2021-08-31 06:55] LABS: Anion Gap 12 (12-20); Blood Urea Nitrogen 9 mg/dL (9-16); Calcium 9.5 mg/dL (8.4-10.2); Carbon Dioxide 25 mmol/L (22-29); Chloride 103 mmol/L (96-108); Creatinine Clr Calc Pharmacy 86.3; Estimated Glomerular Filt Rate > 60; Glucose Random 134 mg/dL (60-115); Sodium 136 mmol/L (135-145)
[2021-08-31] MEDS: 0.9 % Sodium Chloride Flush 3 ML SYRINGE IVFLUSH (07:35)
[2021-08-31 08:05] LABS: Glucose, Whole Blood 126 mg/dL (60-115)
[2021-08-31 08:10] VITALS: BP 140/92; PULSE 82; TEMP 36.6
[2021-08-31] MEDS: Losartan Potassium 50 MG TABLET PO (08:20)
[2021-08-31] MEDS: Famotidine/PF 20 MG/2 ML VIAL IVPUSH (08:20)
[2021-08-31] MEDS: Furosemide 20 MG/2 ML VIAL IVPUSH (08:20)
--- NOTE | 2021-08-31 09:15 | MHC.CM.PN ---
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 SHE IS ACTIVE INDEPENDENT IN ALL ADLS AND MOBILITY WITH OUT ANY DEVICE , SHE HAS NO VNA , NO DME SERVICES IN THE HOME . HER WILL PICK HER UP . S/P BARIATRIC SURGERY DISCHARGE PLANB HOME WITH NO SERVICES PCP ROXANA FONTANEZ INSTRUCTED TO CALL FOR POST [facility] DISCHARGE FOLLOW UP BARIATRIC SURHGCIAL FOLLOW UP PER DISCHARGE INSTRUCTIONS TRANSPORT FAMILY MEDICARE IMMM COVID VAC X2 EDUCATED ABOUT HCP DECLINED AT THIS TIME
[2021-08-31] MEDS: Lactated Ringers 1,000 ML 60 ML IVCONT (09:56)
--- NOTE | 2021-08-31 10:49 | HO.POSTANES ---
Post Anesthesia Evaluation Post Anesthesia Evaluation Vital Signs: Vital Signs Temp Pulse Resp BP Pulse Ox 08/31/21 08:10 97.8 F 82 140/92 H 08/31/21 03:19 98.5 F 74 16 172/84 H 96 08/31/21 01:45 173/74 H 08/30/21 23:34 97.6 F 85 18 184/92 H 96 Anesthesia: General Endotracheal-GETA Mental Status: Awake Pain Control: Satisfactory (significant headache) Nausea/Vomiting: Mild Hydration: Adequate Anesthesia-Related Issues: No Anes. Related Issues
[2021-08-31 11:08] VITALS: BP 130/80; PULSE 80; RESP 18; TEMP 36.4; O2SAT 96
[2021-08-31 11:25] LABS: Glucose, Whole Blood 127 mg/dL (60-115)
--- NOTE | 2021-08-31 16:33 | PC.NURSE ---
Pt ambulated several times in the room and to the bathroom. Stated headache was gone. Denied pain. Manual BP 130/80. Diuresed well after IV lasix given this morning. Reviewed dc instructions with pt and pt family. Verbalized understanding
== END 2021-08-31 16:32 | disposition home or self-care (01) | DRG 620 ==
LOC: HO.SSSA 11:56 → HO.S3 13:36
PROVIDERS: Physician Assistant Surgical; Admitting Provider Surgery; PCP Nurse Practitioner Family; Visit Provider Surgery
PROC: 0DB64Z3 Excision of Stomach, Percutaneous Endoscopic Approach, Vertical (ICD-10-PCS; CPT 43845; principal; 2021-08-30 10:10)
DX: E66.01 Morbid (severe) obesity due to excess calories (principal); K44.0 Diaphragmatic hernia with obstruction, without gangrene; K21.9 Gastro-esophageal reflux disease without esophagitis; M19.90 Unspecified osteoarthritis, unspecified site; Z86.16 Personal history of COVID-19; I10 Essential (primary) hypertension; F41.9 Anxiety disorder, unspecified; J45.909 Unspecified asthma, uncomplicated; Z68.35 Body mass index [BMI] 35.0-35.9, adult; E11.9 Type 2 diabetes mellitus without complications; Z20.822 Contact with and (suspected) exposure to COVID-19; Z98.1 Arthrodesis status; Z87.891 Personal history of nicotine dependence; Z88.0 Allergy status to penicillin; Z88.6 Allergy status to analgesic agent; Z79.899 Other long term (current) drug therapy
CPT/HCPCS: 36415; 71046; 80048; 82947; 85014; 85018; 85025; 86850; 86900; 86901; 87635; 88307; 88342; 99024; A4649; C9088; J0131; J1100; J1170; J1940; J1956; J2250; J2370; J2405; J2550; J2765; J3010

== ENCOUNTER → 2021-09-04 13:29 | Outpatient (BNVA) | payer MEDICARE, MEDICAID, SELFPAY | PROVIDERS: PCP Nurse Practitioner Family; Visit Provider Physician Assistant Surgical | DX: Z13.89 Encounter for screening for other disorder (principal) ==

== ENCOUNTER → 2021-11-22 08:34 | Outpatient (BNVA) | payer MEDICARE, MEDICAID, SELFPAY | PROVIDERS: PCP Nurse Practitioner Family; Visit Provider Physician Assistant | DX: E66.9 Obesity, unspecified (principal); E11.9 Type 2 diabetes mellitus without complications; I10 Essential (primary) hypertension; Z68.30 Body mass index [BMI] 30.0-30.9, adult; Z90.49 Acquired absence of other specified parts of digestive tract; Z90.3 Acquired absence of stomach [part of]; Z79.84 Long term (current) use of oral hypoglycemic drugs | CPT/HCPCS: 99212 ==

== ENCOUNTER → 2022-01-15 08:45 | Outpatient (BNVA) | payer MEDICARE, MEDICAID, SELFPAY | PROVIDERS: PCP Nurse Practitioner Family; Referring Provider Nurse Practitioner Family; Visit Provider Physician Assistant Surgical | DX: E66.9 Obesity, unspecified (principal); Z90.3 Acquired absence of stomach [part of]; Z68.30 Body mass index [BMI] 30.0-30.9, adult | CPT/HCPCS: 99212 ==

== ENCOUNTER → 2022-01-30 11:58 | Outpatient (BNVA) | payer MEDICARE, MEDICAID, SELFPAY | PROVIDERS: PCP Nurse Practitioner Family; Referring Provider Nurse Practitioner Family; Visit Provider Internal Medicine | DX: I10 Essential (primary) hypertension (principal) | CPT/HCPCS: 99202 ==

== ENCOUNTER → 2022-02-27 09:26 | Outpatient (BNVA) | payer MEDICARE, MEDICAID, SELFPAY | PROVIDERS: PCP Nurse Practitioner Family; Visit Provider Physician Assistant Surgical | DX: E66.9 Obesity, unspecified (principal); Z98.890 Other specified postprocedural states; Z87.19 Personal history of other diseases of the digestive system; Z90.3 Acquired absence of stomach [part of]; Z68.30 Body mass index [BMI] 30.0-30.9, adult | CPT/HCPCS: 99212 ==

== ENCOUNTER → 2022-07-05 14:15 | Outpatient (BNVA) | payer MEDICARE, MEDICAID, SELFPAY | PROVIDERS: PCP Nurse Practitioner Family; Visit Provider Physician Assistant Surgical | DX: E66.9 Obesity, unspecified (principal); Z90.3 Acquired absence of stomach [part of]; Z68.30 Body mass index [BMI] 30.0-30.9, adult | CPT/HCPCS: 99212 ==

== ENCOUNTER 2022-08-07 09:18 | Outpatient (REF) | payer MEDICARE, MEDICAID, SELFPAY ==
[2022-08-07 09:56] LABS: MANUAL DIFF FLAG NO
[2022-08-07 10:45] LABS: Basophils Percent Auto 1.1 % (0-2); Eosinophils Absolute Auto 0.2 X10*3/uL (0.0-0.4); Eosinophils Percent Auto 5.2 % (0-4); Hematocrit 42.3 % (37.0-47.0); Hemoglobin 13.7 g/dl (12.0-16.0); Imm Gran Abs Auto 0.01 X10*3/uL (0.00-0.03); Imm Gran Pct Auto 0.3 % (0.0-0.4); Lymphocytes Absolute Auto 1.2 X10*3/uL (1.2-4.9); Lymphocytes Percent Auto 32.7 % (20-40); Mean Corpuscular HGB Conc 32.4 g/dl (31.0-35.0); Mean Corpuscular Volume 92.8 fL (80.0-98.0); Monocytes Absolute Auto 0.4 X10*3/uL (0.1-1.2); Monocytes Percent Auto 10.7 % (2-11); Neutrophils Absolute Auto 1.8 x10*3/uL (2.0-8.3); Platelet Count 147 X10*3/uL (160-400); Red Blood Count 4.56 X10*6/uL (4.20-5.50); Red Cell Distribution Width 14.2 % (11.0-16.0); White Blood Count 3.6 X10*3/uL (4.8-10.8)
[2022-08-07 10:58] LABS: Estimated Average Glucose 94 mg/dL; Hemoglobin A1c % 4.9 %
[2022-08-07 11:32] LABS: Alanine Aminotransferase 17 U/L (0-31); Albumin Level 3.8 g/dL (3.5-5.0); Alkaline Phosphatase 89 U/L (39-117); Anion Gap 7 (12-20); Aspartate Amino Transferase 17 U/L (5-31); Bilirubin Total 0.8 mg/dL (0.0-1.0); Blood Urea Nitrogen 16 mg/dL (9-16); C Reactive Protein < 0.10 mg/dL (< or = 0.50); Calcium 9.6 mg/dL (8.4-10.2); Carbon Dioxide 31 mmol/L (22-29); Chloride 107 mmol/L (96-108); Cholesterol 189 mg/dL; Estimated Glomerular Filt Rate > 60; Glucose Random 96 mg/dL (60-115); HDL Cholesterol 86 mg/dL; Iron 151 mcg/dL (30-160); LDL Cholesterol Calculated 92 mg/dl; Percent Iron Saturation 45 % (15-50); Potassium 4.3 mmol/L (3.3-5.1); Sodium 141 mmol/L (135-145); Total Iron Binding Capacity 332 mcg/dL (228-428); Total Protein 6.8 g/dL (6.5-8.0); Triglycerides 59 mg/dL; Unsaturated Iron Binding 181 ug/dL
[2022-08-07 11:44] LABS: Ferritin 60 ng/mL (10-250); Folate 10.3 ng/mL (> or = 4.0); Insulin 6 uU/mL (2-29); Vitamin B12 527 pg/mL (200-900); Vitamin D 25-OH Total 20.5 ng/mL (>30)
[2022-08-09 15:33] LABS: Calcium (PTHI) 9.6 mg/dL (8.6-10.4); PTHI 41 pg/mL (16-77)
[2022-08-12 13:17] LABS: Zinc 93 mcg/dL (60-130)
[2022-08-15 17:09] LABS: Vitamin A 39 mcg/dL (38-98)
[2022-08-16 16:29] LABS: Vitamin B1 10 nmol/L (8-30)
== END 2022-08-07 09:19 | disposition home or self-care (01) ==
LOC: HO.LAB 09:18
PROVIDERS: Visit Provider Physician Assistant Surgical
DX: K91.2 Postsurgical malabsorption, not elsewhere classified (principal); Z90.3 Acquired absence of stomach [part of]
CPT/HCPCS: 36415; 80053; 80061; 82306; 82607; 82728; 82746; 83036; 83525; 83540; 83970; 84425; 84443; 84590; 84630; 85025; 86140

== ENCOUNTER → 2022-09-04 12:32 | Outpatient (BNVA) | payer MEDICARE, MEDICAID, SELFPAY | PROVIDERS: PCP Nurse Practitioner Family; Referring Provider Nurse Practitioner Family; Visit Provider Physician Assistant Surgical | DX: L98.7 Excessive and redundant skin and subcutaneous tissue (principal); E66.9 Obesity, unspecified; Z68.30 Body mass index [BMI] 30.0-30.9, adult; Z98.84 Bariatric surgery status; Z90.3 Acquired absence of stomach [part of] | CPT/HCPCS: 99212 ==

== ENCOUNTER 2022-11-11 14:44 | Outpatient (AMB) | payer MEDICARE, MEDICAID, SELFPAY ==
--- NOTE | 2022-11-11 14:49 | A.OFFVIS_ITS ---
Intake VS Expanded 11/11/22 14:57 Height 5 ft 2 in Weight 165 lb BMI 30.2 BP 163/78 H Blood Pressure Location Rt brachial Blood Pressure Position Sitting Pulse 73 Pulse Source Pulse Oximeter Temp 96.2 F L Temperature Source Temporal Artery Scan Pulse Oximetry 100 Oxygen Delivery Method Room Air Body Fat 61.6 Body Fat Percentage 37.3 Free Fat Mass 103.4 Muscle Mass 98.2 Visceral Mass 11.0 Water Mass 72.8 BMR 1,404 Intake Visit Reasons: (OV) PO LSG 08/30/21 Allergies aspirin [ASPIRIN] Allergy (Intermediate, Verified 11/11/22 14:55) RASH ibuprofen [IBUPROFEN] Allergy (Intermediate, Verified 11/11/22 14:55) PALPITATIONS Penicillins [PENICILLINS] Allergy (Intermediate, Verified 11/11/22 14:55) RASH Medication List - Last Reconciled 11/11/22 by Zayra Carver PA-C cholecalciferol (vitamin D3) 50 mcg PO DAILY clotrimazole 1% 1 appl topical BID losartan 50 mg PO DAILY multivitamin 1 tab PO DAILY HPI HPI Comments History of Present Illness Details LSG August 2021, now 1 year post op. 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 No n/v abd pain or reflux. Frustrated she is not losing more weight. Wants to hve brachiolplasty and thighplasty and panniculectomy. She is experiencing ongoing issues of excess skin of upper arms, thighs and pannus resulting in frequent painful rashes/chafing refractory to topical Rx treatment. She is also limited due to pain and discomfort in range of motion and daily activities including exercise, which is necessary to maintain her excellent weight loss. She would benefit from definitive treatment of bilateral brachioplasty. Meal plan: states she feels hungry. black coffee with splenda 9am - Premier shake 1pm - 2oz chicken 6pm - shake Exercise - walking or bicycle - 7 days per week, 30 minutes 250 - 300 calories burned. Post op complications: none ALEXANDER: never DM: resolved HTN: on meds Hyperlipidemia: never GERD: 0, resolved Satisfaction with present condition - satisfied COUNT INCLUDES THE [facility] Medical History Anxiety Asthma BMI 35.0-35.9,adult BMI 37.0-37.9, adult BMI 39.0-39.9,adult COVID COVID-19 vaccine series completed DJD (degenerative joint disease) GERD (gastroesophageal reflux disease) History of COVID-19 Hypertension Intra-abdominal adhesions Non-insulin dependent type 2 diabetes mellitus Obesity Steatosis, liver Surgical History Hx of ankle fusion Hx of cholecystectomy Hx of hysterectomy Family History Mother Alzheimer disease Father Diabetes Hypertension Brother Hypertension Diabetes Stroke Cancer Daughter Lupus Fibromyalgia Social History Household Members: Spouse Housing: House Are you a primary director of home care hospice to a significant other at home: No Do you presently have visiting nurse or other home services: No (unknown) Alcohol intake: never Patient Tobacco Use Status: Former Tobacco user Quit Date: age 36 Tobacco use type: Cigarette service: No Current occupational status: unemployed Physical Exam Vital Signs: Last Vital Signs Temp 96.2 F L 11/11/22 14:57 Pulse 73 11/11/22 14:57 BP 163/78 H 11/11/22 14:57 Pulse Ox 100 11/11/22 14:57 Oxygen Delivery Method Room Air 11/11/22 14:57 BMI result Body Mass Index 30.2 Assessment & Plan Assessment & Plan (1) Status post sleeve gastrectomy: Code(s): Z90.3 - Acquired absence of stomach [part of] Plan: Bicycle once a day for 300 calories. TBP or MM 4d/week Do not skip or miss meals, 2 shakes and 1 meal of 3 oz and 2oz daily. Text me if not losing at least 1 lb per week. Continue clotrimazole and good hygiene for recurrent and chronic rashes under pannus and between legs. Next appt with me in 2 months. Patient is morbidly obese and is not considered stable at this time. I spent 30 minutes in total with patient reviewing/updating records, examining the patient and counseling the patient on weight management as detailed above. (2) S/P repair of paraesophageal hernia: Code(s): Z98.890 - Other specified postprocedural states; Z87.19 - Personal history of other diseases of the digestive system (3) Excess skin: Code(s): L98.7 - Excessive and redundant skin and subcutaneous tissue (4) Essential hypertension: Code(s): I10 - Essential (primary) hypertension Coding Level of Care Code Est Pt Level 4 (41772) Diagnoses Status post sleeve gastrectomy Z90.3 S/P repair of paraesophageal hernia Z98.890; Z87.19 Excess skin L98.7 Essential hypertension I10
[2022-11-11 14:57] VITALS: BP 163/78; PULSE 73; TEMP 35.7; O2SAT 100; BMI 30.2
== END 2022-11-11 15:31 | disposition home or self-care (01) ==
PROVIDERS: PCP Nurse Practitioner Family; Visit Provider Physician Assistant
DX: E66.9 Obesity, unspecified (principal); Z68.30 Body mass index [BMI] 30.0-30.9, adult; Z90.3 Acquired absence of stomach [part of]; Z98.84 Bariatric surgery status; L98.7 Excessive and redundant skin and subcutaneous tissue
CPT/HCPCS: 99214

== ENCOUNTER → 2022-11-11 14:44 | Outpatient (BNVA) | payer MEDICARE, MEDICAID, SELFPAY | PROVIDERS: PCP Nurse Practitioner Family; Visit Provider Physician Assistant | DX: L98.7 Excessive and redundant skin and subcutaneous tissue (principal); I10 Essential (primary) hypertension; E11.9 Type 2 diabetes mellitus without complications; Z90.3 Acquired absence of stomach [part of] | CPT/HCPCS: 99212 ==

== ENCOUNTER 2023-01-20 14:32 | Outpatient (AMB) | payer MEDICARE, MEDICAID, SELFPAY ==
--- NOTE | 2023-01-20 14:47 | MHC.OFFVISWM ---
Intake VS Expanded 01/20/23 14:54 BP 153/78 H Blood Pressure Location Rt brachial Blood Pressure Position Sitting Pulse 78 Pulse Source Pulse Oximeter Temp 97.1 F Temperature Source Temporal Artery Scan Pulse Oximetry 98 Oxygen Delivery Method Room Air Height 5 ft 2 in Weight 168 lb 9.6 oz BMI 30.8 Body Fat % 39.1 Body Fat Mass 66.0 Fat Free Mass 102.6 Visceral Fat Rating 11.0 Body Water % 42.8 Body Water Mass 72.0 Muscle Mass/Score 97.2 Basal Metabolic Rate/Score 1,400 Intake Visit Reasons: (OV) PO LSG 08/30/21 Allergies aspirin [ASPIRIN] Allergy (Intermediate, Verified 01/20/23 14:51) RASH ibuprofen [IBUPROFEN] Allergy (Intermediate, Verified 01/20/23 14:51) PALPITATIONS Penicillins [PENICILLINS] Allergy (Intermediate, Verified 01/20/23 14:51) RASH Medication List - Last Reconciled 01/20/23 by LESLIE Kate-Diego clotrimazole 1% 1 appl topical BID losartan 50 mg PO DAILY multivitamin 1 tab PO DAILY HPI HPI Comments History of Present Illness Details Pt is now 1 year and 4 months s/p LSg. Her weight has been stable at BMI 30 for over 1 year. Last appointment October 2021. States has constipation. BM's normally daily or twice per day - but hard to pass. Labs done July 2022 - all normal except low vitamin D. Wakes 5- 6am 5:30 am - Coffee black - with 2 sugars 12pm - Premier shake 2pm - yogurt 6pm - shake Never eats food, feels its to heavy in her stomach. Used to have 1 boiled egg, chicken thigh, etc... Exercise- treadmill 7d/ week. 300 calories per day she states. Post op complications: none ALEXANDER: never DM: resolved HTN: still on meds Hyperlipidemia: never GERD: 0- Satisfaction with present condition - satisfied [facility] Medical History (Updated 09/04/22 @ 13:38 by LESLIE Gallagher) Intra-abdominal adhesions Steatosis, liver COVID BMI 35.0-35.9,adult COVID-19 vaccine series completed Asthma History of COVID-19 BMI 37.0-37.9, adult DJD (degenerative joint disease) Anxiety GERD (gastroesophageal reflux disease) Non-insulin dependent type 2 diabetes mellitus Hypertension BMI 39.0-39.9,adult Obesity Surgical History (Updated 01/20/23 @ 14:52 by Lucille Diana CMA) Status post sleeve gastrectomy Hx of ankle fusion Hx of hysterectomy Hx of cholecystectomy Family History Mother Alzheimer disease Father Diabetes Hypertension Brother Hypertension Diabetes Stroke Cancer Daughter Lupus Fibromyalgia Social History Household Members: Spouse Housing: House Are you a primary director career services to a significant other at home: No Do you presently have visiting nurse or other home services: No (unknown) Alcohol intake: never Patient Tobacco Use Status: Former Tobacco user Quit Date: age 36 Tobacco use type: Cigarette service: No Current occupational status: unemployed Physical Exam Vital Signs: Last Vital Signs Temp 97.1 F 01/20/23 14:54 Pulse 78 01/20/23 14:54 BP 153/78 H 01/20/23 14:54 Pulse Ox 98 01/20/23 14:54 Oxygen Delivery Method Room Air 01/20/23 14:54 BMI result Body Mass Index 30.8 Assessment & Plan Assessment & Plan (1) Obesity: Code(s): E66.9 - Obesity, unspecified Plan: 14 months post op and no weight loss over last year - she wants to lose more weight and have panniculectomy for large cumbersome pannus. 1. fiber tablets bid 2. Vit d dialy 3. Coffee - with half shake in am (not on empty stomach) 4. 12pm - yogurt with 1/4 c berries 4pm - 3 oz fish or shellfish and 3 oz vegetables 7pm - shake Continue exercise Next appt 1 month with me if no improvement will consider UGI. Appt with Patricia now Patient is obese and is not considered stable at this time. I spent 30 minutes in total with patient reviewing/updating records, examining the patient and counseling the patient on weight management as detailed above. . (2) Constipation: Code(s): K59.00 - Constipation, unspecified (3) Vitamin D deficiency: Code(s): E55.9 - Vitamin D deficiency, unspecified Medications: New cholecalciferol (vitamin D3) 25 mcg PO DAILY 30 caps 11RF inulin (Fiber Gummies) 2 grams PO BID 60 tabs 3RF Coding Level of Care Code Est Pt Level 4 (96669) Diagnoses Obesity E66.9 Constipation K59.00 Vitamin D deficiency E55.9
[2023-01-20 14:54] VITALS: BP 153/78; PULSE 78; TEMP 36.2; O2SAT 98; BMI 30.8
== END 2023-01-20 15:41 | disposition home or self-care (01) ==
PROVIDERS: PCP Nurse Practitioner Family; Visit Provider Physician Assistant
DX: E66.9 Obesity, unspecified (principal); Z68.30 Body mass index [BMI] 30.0-30.9, adult; Z90.3 Acquired absence of stomach [part of]; Z98.84 Bariatric surgery status
CPT/HCPCS: 99214

== ENCOUNTER → 2023-01-20 14:32 | Outpatient (BNVA) | payer MEDICARE, MEDICAID, SELFPAY | PROVIDERS: PCP Nurse Practitioner Family; Visit Provider Physician Assistant | DX: E66.9 Obesity, unspecified (principal); K59.00 Constipation, unspecified; E55.9 Vitamin D deficiency, unspecified; Z68.30 Body mass index [BMI] 30.0-30.9, adult | CPT/HCPCS: 99212 ==

== ENCOUNTER 2023-03-20 14:49 | Outpatient (AMB) | payer MEDICARE, MEDICAID, SELFPAY ==
--- NOTE | 2023-03-20 13:55 | MHC.OFFVISWM ---
Intake VS Expanded 03/20/23 15:04 BP 122/70 Blood Pressure Location Rt brachial Blood Pressure Position Sitting Pulse 82 Pulse Source Pulse Oximeter Temp 97.0 F Temperature Source Tympanic Pulse Oximetry 99 Oxygen Delivery Method Room Air Height 5 ft 2 in Weight 165 lb 3.2 oz BMI 30.2 Body Fat % 41.9 Body Fat Mass 66.6 Fat Free Mass 98.6 Visceral Fat Rating 11.0 Body Water % 41.9 Body Water Mass 69.2 Muscle Mass/Score 93.4 Basal Metabolic Rate/Score 1,355 Intake Visit Reasons: (OV) PO LSG 08/30/21 Allergies aspirin [ASPIRIN] Allergy (Intermediate, Verified 01/20/23 14:51) RASH ibuprofen [IBUPROFEN] Allergy (Intermediate, Verified 01/20/23 14:51) PALPITATIONS Penicillins [PENICILLINS] Allergy (Intermediate, Verified 01/20/23 14:51) RASH Medication List - Last Reconciled 03/20/23 by LESLIE Kate-C cholecalciferol (vitamin D3) 25 mcg PO DAILY clotrimazole 1% 1 appl topical BID inulin (Fiber Gummies) 2 grams PO BID losartan 50 mg PO DAILY multivitamin 1 tab PO DAILY HPI HPI Comments History of Present Illness Details 72 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 No nausea, emesis or reflux anymore. Seh feels very embarrassed by the way her body looks, wants panniculectomy. Depressed about her body image. No therapist, talks with her PCP. Fiber tablets bid and Vit d daily 8am - Coffee - with diet creamer 1pm - Premier powder with UAM 4 pm - yogurt with 1/4 c berries 7pm - shake Exercise - treadmill - 2d/ week 20 minutes - hernandes 100 calories. Appt with Patricia was scheduled but did not happen - she declines appt now. [facility] Medical History (Updated 09/04/22 @ 13:38 by LESLIE Gallagher) Intra-abdominal adhesions Steatosis, liver COVID BMI 35.0-35.9,adult COVID-19 vaccine series completed Asthma History of COVID-19 BMI 37.0-37.9, adult DJD (degenerative joint disease) Anxiety GERD (gastroesophageal reflux disease) Non-insulin dependent type 2 diabetes mellitus Hypertension BMI 39.0-39.9,adult Obesity Surgical History (Updated 01/20/23 @ 14:52 by Lucille Diana CMA) Status post sleeve gastrectomy Hx of ankle fusion Hx of hysterectomy Hx of cholecystectomy Family History Mother Alzheimer disease Father Diabetes Hypertension Brother Hypertension Diabetes Stroke Cancer Daughter Lupus Fibromyalgia Social History Household Members: Spouse Housing: House Are you a primary critical care unit nurse to a significant other at home: No Do you presently have visiting nurse or other home services: No (unknown) Alcohol intake: never Patient Tobacco Use Status: Former Tobacco user Quit Date: age 36 Tobacco use type: Cigarette service: No Current occupational status: unemployed Assessment & Plan Assessment & Plan (1) Obesity: Code(s): E66.9 - Obesity, unspecified Plan: Pt is struggling with continued weight loss efforts. She admits that she knows what she needs to do but is having a hard time getting it done. Meal plan - 8am - coffee with 1 scoop protein powder 11 am - full shake 4pm - meal of 4 forks each protein and veg 7pm- 1 scoop shake Treadmill - 300 calories burned 7 d/ week Will get post op labs done now Text me weights weekly, next appt 2 months - patient requests office visists Patient is obese and is not considered stable at this time. I spent 30 minutes in total with patient reviewing/updating records, examining the patient and counseling the patient on weight management as detailed above. (2) Status post sleeve gastrectomy: Code(s): Z90.3 - Acquired absence of stomach [part of] Plan see above Orders: Orders Complete Blood Count Auto Diff Today E53.8 - Deficiency of other specified B group vitamins, E55.9 - Vitamin D deficiency, unspecified, K76.0 - Fatty (change of) liver, not elsewhere classified, Z90.3 - Acquired absence of stomach [part of] Comprehensive Met. Panel Today E53.8 - Deficiency of other specified B group vitamins, E55.9 - Vitamin D deficiency, unspecified, K76.0 - Fatty (change of) liver, not elsewhere classified, Z90.3 - Acquired absence of stomach [part of] Vitamin B12 and Folate Today E53.8 - Deficiency of other specified B group vitamins, E55.9 - Vitamin D deficiency, unspecified, K76.0 - Fatty (change of) liver, not elsewhere classified, Z90.3 - Acquired absence of stomach [part of] Zinc Today E53.8 - Deficiency of other specified B group vitamins, E55.9 - Vitamin D deficiency, unspecified, K76.0 - Fatty (change of) liver, not elsewhere classified, Z90.3 - Acquired absence of stomach [part of] Vitamin A Today E53.8 - Deficiency of other specified B group vitamins, E55.9 - Vitamin D deficiency, unspecified, K76.0 - Fatty (change of) liver, not elsewhere classified, Z90.3 - Acquired absence of stomach [part of] TSH reflex Free T4 Today E53.8 - Deficiency of other specified B group vitamins, E55.9 - Vitamin D deficiency, unspecified, K76.0 - Fatty (change of) liver, not elsewhere classified, Z90.3 - Acquired absence of stomach [part of] Ferritin Today E53.8 - Deficiency of other specified B group vitamins, E55.9 - Vitamin D deficiency, unspecified, K76.0 - Fatty (change of) liver, not elsewhere classified, Z90.3 - Acquired absence of stomach [part of] Vitamin D 25-OH Total Today E53.8 - Deficiency of other specified B group vitamins, E55.9 - Vitamin D deficiency, unspecified, K76.0 - Fatty (change of) liver, not elsewhere classified, Z90.3 - Acquired absence of stomach [part of] Insulin Today E53.8 - Deficiency of other specified B group vitamins, E55.9 - Vitamin D deficiency, unspecified, K76.0 - Fatty (change of) liver, not elsewhere classified, Z90.3 - Acquired absence of stomach [part of] Hemoglobin A1c Today E53.8 - Deficiency of other specified B group vitamins, E55.9 - Vitamin D deficiency, unspecified, K76.0 - Fatty (change of) liver, not elsewhere classified, Z90.3 - Acquired absence of stomach [part of] Lipid Panel Today E53.8 - Deficiency of other specified B group vitamins, E55.9 - Vitamin D deficiency, unspecified, K76.0 - Fatty (change of) liver, not elsewhere classified, Z90.3 - Acquired absence of stomach [part of] IRON PROFILE Today E53.8 - Deficiency of other specified B group vitamins, E55.9 - Vitamin D deficiency, unspecified, K76.0 - Fatty (change of) liver, not elsewhere classified, Z90.3 - Acquired absence of stomach [part of] C Reactive Protein Today E53.8 - Deficiency of other specified B group vitamins, E55.9 - Vitamin D deficiency, unspecified, K76.0 - Fatty (change of) liver, not elsewhere classified, Z90.3 - Acquired absence of stomach [part of] Vitamin B1 Today E53.8 - Deficiency of other specified B group vitamins, E55.9 - Vitamin D deficiency, unspecified, K76.0 - Fatty (change of) liver, not elsewhere classified, Z90.3 - Acquired absence of stomach [part of] Coding Level of Care Code Est Pt Level 4 (24131) Diagnoses Obesity E66.9 Status post sleeve gastrectomy Z90.3
[2023-03-20 15:04] VITALS: BP 122/70; PULSE 82; TEMP 36.1; O2SAT 99; BMI 30.2
== END 2023-03-20 15:35 | disposition home or self-care (01) ==
PROVIDERS: PCP Nurse Practitioner Family; Visit Provider Physician Assistant
DX: E66.9 Obesity, unspecified (principal); Z68.30 Body mass index [BMI] 30.0-30.9, adult; Z90.3 Acquired absence of stomach [part of]; Z98.84 Bariatric surgery status
CPT/HCPCS: 99213

== ENCOUNTER → 2023-03-20 14:49 | Outpatient (BNVA) | payer MEDICARE, MEDICAID, SELFPAY | PROVIDERS: PCP Nurse Practitioner Family; Visit Provider Physician Assistant | DX: E66.9 Obesity, unspecified (principal); Z90.3 Acquired absence of stomach [part of]; Z68.30 Body mass index [BMI] 30.0-30.9, adult | CPT/HCPCS: 99212 ==

== ENCOUNTER 2023-06-18 15:20 | Outpatient (AMB) | payer MEDICARE, MEDICAID, SELFPAY ==
--- NOTE | 2023-06-18 15:22 | A.OFFVIS_ITS ---
Intake VS Expanded 06/18/23 15:30 BP 176/88 H Blood Pressure Location Rt brachial Blood Pressure Position Sitting Pulse 82 Pulse Source Pulse Oximeter Temp 97.1 F Temperature Source Tympanic Pulse Oximetry 96 Oxygen Delivery Method Room Air Height 5 ft 2 in Weight 165 lb 12.8 oz BMI 30.3 Body Fat % 40.4 Body Fat Mass 67.0 Fat Free Mass 98.8 Visceral Fat Rating 11.0 Body Water % 41.9 Body Water Mass 69.4 Muscle Mass/Score 93.6 Basal Metabolic Rate/Score 1,358 Intake Visit Reasons: (OV) PO LSG 08/30/21 Senior Enlisted Advisor Required: Yes Senior Enlisted Advisor Name: #[id number] Allergies aspirin [ASPIRIN] Allergy (Intermediate, Verified 01/20/23 14:51) RASH ibuprofen [IBUPROFEN] Allergy (Intermediate, Verified 01/20/23 14:51) PALPITATIONS Penicillins [PENICILLINS] Allergy (Intermediate, Verified 01/20/23 14:51) RASH Medication List - Last Reconciled 06/18/23 by LESLIE Gordon cholecalciferol (vitamin D3) 25 mcg PO DAILY clotrimazole 1% 1 appl topical BID inulin (Fiber Gummies) 2 grams PO BID losartan 50 mg PO DAILY multivitamin 1 tab PO DAILY HPI HPI Comments History of Present Illness Details 72-year-old female returns to the office today in follow-up. She is approximately 1 year 9 months post sleeve gastrectomy with hiatal hernia repair performed on 08/30/2021. Her initial weight on 06/01/2021 was 214.2 lb. Weight today is 165.8 lb with a BMI of 30.4. She is lost 48.6 lb since initial presentation or 22.6% total body weight loss. She is complaining of excess skin of her arms and abdomen and legs. This has significantly impacted her life in a negative way. The skin of her arms is very heavy for her and she has increased difficulty with overhead activities such as brushing her hair or washing her hair. The skin of her abdomen causes pain due to multiple rashes that she treats with prescriptive clotrimazole with improvement although recurrence. She has increased back pain as a result of the excess abdominal skin. The skin of her legs rubs causing rash. She additionally is uncomfortable in clothing other than dresses due to the excess skin. She is currently doing 2 scoops in the morning, yogurt, meal then another shake w 1 scoop Previously recommended Meal plan - premier protein powder 8am - coffee with 1 scoop protein powder 11 am - full shake 4pm - meal of 4 forks each protein and v eg 7pm- 1 scoop shake Exercise plan bike 4 x per week 200-250 calories. Treadmill - 300 calories burned 7 d/ week [facility] Medical History (Updated 09/04/22 @ 13:38 by LESLIE Gallagher) Intra-abdominal adhesions Steatosis, liver COVID BMI 35.0-35.9,adult COVID-19 vaccine series completed Asthma History of COVID-19 BMI 37.0-37.9, adult DJD (degenerative joint disease) Anxiety GERD (gastroesophageal reflux disease) Non-insulin dependent type 2 diabetes mellitus Hypertension BMI 39.0-39.9,adult Obesity Surgical History (Updated 01/20/23 @ 14:52 by Lucille Diana CMA) Status post sleeve gastrectomy Hx of ankle fusion Hx of hysterectomy Hx of cholecystectomy Family History Mother Alzheimer disease Father Diabetes Hypertension Brother Hypertension Diabetes Stroke Cancer Daughter Lupus Fibromyalgia Social History Household Members: Spouse Housing: House Are you a primary healthcare receptionist to a significant other at home: No Do you presently have visiting nurse or other home services: No (unknown) Alcohol intake: never Patient Tobacco Use Status: Former Tobacco user Quit Date: age 36 Tobacco use type: Cigarette service: No Current occupational status: unemployed Physical Exam Vital Signs: Last Vital Signs Temp 97.1 F 06/18/23 15:30 Pulse 82 06/18/23 15:30 BP 176/88 H 06/18/23 15:30 Pulse Ox 96 06/18/23 15:30 Oxygen Delivery Method Room Air 06/18/23 15:30 BMI result Body Mass Index 30.3 Const General: healthy appearing and no acute distress Resp Effort & Inspection: normal respiratory effort Auscultation: clear to auscultation bilaterally Cardio Rate: regular rate Rhythm: regular rhythm GI Auscultation: normal bowel sounds Skin Other: Excess skin of bilateral arms without active rash. Abdomen with grade 2/3 pannus with resolving rash in the skin fold Extrem General: Yes normal to inspection Assessment & Plan Assessment & Plan (1) Status post sleeve gastrectomy: Code(s): Z90.3 - Acquired absence of stomach [part of] Plan: We will recommend changing the meal plans slightly. Premier protein powder. Shake 1 scoop Yogurt Meal with 4 forks of protein and 4 of vegetables Another shake with 1 scoop. Encouraged to increase activity on the stationary bike as she is able to a goal of 250-300 calories daily. We will have her return to the office in 1 month. (2) Excess skin: Code(s): L98.7 - Excessive and redundant skin and subcutaneous tissue Plan: Patient with excess skin of bilateral arms, thighs and abdomen. Her arms and abdomen are causing her the most discomfort. She has had recurrent rash of her pannus and has difficulty with overhead movement due to the excess skin of her arms. We will have her follow-up in the clinic in approximately 1 month with the understanding that if she has continued rashes and pain due to the excess skin of the abdomen, we will consider photo documentation at her next visit and submission for medically necessary skin removal surgery. Coding Level of Care Code Est Pt Level 4 (23405) Diagnoses Status post sleeve gastrectomy Z90.3 Excess skin L98.7 Time Spent (min) 45
[2023-06-18 15:30] VITALS: BP 176/88; PULSE 82; TEMP 36.2; O2SAT 96; BMI 30.3
== END 2023-06-18 16:14 | disposition home or self-care (01) ==
PROVIDERS: PCP Nurse Practitioner Family; Visit Provider Physician Assistant Surgical
DX: L98.7 Excessive and redundant skin and subcutaneous tissue (principal); E66.9 Obesity, unspecified; Z68.30 Body mass index [BMI] 30.0-30.9, adult; Z90.3 Acquired absence of stomach [part of]; Z98.84 Bariatric surgery status
CPT/HCPCS: 99214

== ENCOUNTER → 2023-06-18 15:20 | Outpatient (BNVA) | payer MEDICARE, MEDICAID, SELFPAY | PROVIDERS: PCP Nurse Practitioner Family; Visit Provider Physician Assistant Surgical | DX: L98.7 Excessive and redundant skin and subcutaneous tissue (principal); Z90.3 Acquired absence of stomach [part of] | CPT/HCPCS: 99212 ==

== ENCOUNTER 2023-07-22 13:42 | Outpatient (AMB) | payer MEDICARE, MEDICAID, SELFPAY ==
--- NOTE | 2023-07-22 13:58 | A.OFFVIS_ITS ---
VS Expanded 07/22/23 14:10 BP 168/76 H Blood Pressure Location Rt brachial Blood Pressure Position Sitting Pulse 79 Pulse Source Pulse Oximeter Temp 96.9 F Temperature Source Temporal Artery Scan Pulse Oximetry 99 Oxygen Delivery Method Room Air Height 5 ft 2 in Weight 168 lb 12.8 oz BMI 30.9 Body Fat % 40.4 Body Fat Mass 68.2 Fat Free Mass 100.6 Visceral Fat Rating 12.0 Body Water % 42.0 Body Water Mass 70.8 Muscle Mass/Score 95.4 Basal Metabolic Rate/Score 1,381 Intake Visit Reasons: (OV) PO LSG 08/30/21 Allergies aspirin [ASPIRIN] Allergy (Intermediate, Verified 01/20/23 14:51) RASH ibuprofen [IBUPROFEN] Allergy (Intermediate, Verified 01/20/23 14:51) PALPITATIONS Penicillins [PENICILLINS] Allergy (Intermediate, Verified 01/20/23 14:51) RASH HPI Comments Details: 72-year-old female returns to the office today in follow-up. She is approximately 1 year 10 months post sleeve gastrectomy with hiatal hernia repair performed on 08/30/2021. Her initial weight on 06/01/2021 was 214.2 lb. Weight today is 168.8 lb with a BMI of 30.9. She is lost 45.4 lb since initial presentation or 21.1% total body weight loss. States that she is frustrated with lack of weight loss. She also states that she had hurt her left hip while out walking last week. She is complaining of excess skin of her arms and abdomen and legs. This has significantly impacted her life in a negative way. The skin of her arms is very heavy for her and she has increased difficulty with overhead activities such as brushing her hair or washing her hair. The skin of her abdomen causes pain due to multiple rashes that she treats with prescriptive clotrimazole with improvement although recurrence. She has increased back pain as a result of the excess abdominal skin. The skin of her legs rubs causing rash. She additionally is uncomfortable in clothing other than dresses due to the excess skin. She has had improvement in her rash with the clotrimazole but there is recurrence if she stops using it. She states she is following the meal plan. She feels as though her excess skin and subsequent skin irritation is inhibiting her from exercising. She also reports constipation and stomach pain with food but tolerates the shakes. She also reports significant stress due to the pain of her skin and hanging weight of her abdomen Previously recommended Meal plan - Premier protein powder. coffee Shake 1 scoop Yogurt Meal with 4 forks of protein and 4 of vegetables Another shake with 1 scoop. Drinking 64 oz water daily Exercise plan walking outside or bike inside (300 calories) avg 4 days outside and 3 days inside. COUNT INCLUDES THE [facility] Medical History (Updated 09/04/22 @ 13:38 by LESLIE Gallagher) Intra-abdominal adhesions Steatosis, liver COVID BMI 35.0-35.9,adult COVID-19 vaccine series completed Asthma History of COVID-19 BMI 37.0-37.9, adult DJD (degenerative joint disease) Anxiety GERD (gastroesophageal reflux disease) Non-insulin dependent type 2 diabetes mellitus Hypertension BMI 39.0-39.9,adult Obesity Surgical History (Updated 01/20/23 @ 14:52 by Lucille Diana CMA) Status post sleeve gastrectomy Hx of ankle fusion Hx of hysterectomy Hx of cholecystectomy Family History Mother Alzheimer disease Father Diabetes Hypertension Brother Hypertension Diabetes Stroke Cancer Daughter Lupus Fibromyalgia Social History Household Members: Spouse Housing: House Are you a primary day care worker to a significant other at home: No Do you presently have visiting nurse or other home services: No (unknown) Alcohol intake: never Patient Tobacco Use Status: Former Tobacco user Quit Date: age 36 Tobacco use type: Cigarette service: No Current occupational status: unemployed Physical Exam Const General: healthy appearing and no acute distress Resp Effort & Inspection: normal respiratory effort Auscultation: clear to auscultation bilaterally Cardio Rate: regular rate Rhythm: regular rhythm GI Auscultation: normal bowel sounds Skin Other: Grade 2/3 abdominal pannus with obvious irritation, confluent erythema to the skin fold Extrem General: Yes normal to inspection Assessment & Plan Assessment & Plan (1) Status post sleeve gastrectomy: Code(s): Z90.3 - Acquired absence of stomach [part of] Category: Surgical Plan: Change meal plans slightly: 1.5 scoops in the morning, yogurt, meal with 4 forks of protein and for forks of vegetables, shake with 1 scoop. Try to use the stationary bike on a daily basis, walking outside when she is able. (2) Excess skin: Code(s): L98.7 - Excessive and redundant skin and subcutaneous tissue Category: Medical Plan: Clearly in need of medically necessary skin removal surgery of the abdomen. Pictures were taken today. (3) Constipation: Code(s): K59.00 - Constipation, unspecified Category: Medical Plan: Encouraged to take the fiber gummies, 2 daily. She states that she ran out. Encouraged to purchase more. We will additionally add Colace Medications: New docusate sodium (Colace) 100 mg PO DAILY 90 days 90 caps 0RF
[2023-07-22 14:10] VITALS: BP 168/76; PULSE 79; TEMP 36.1; O2SAT 99; BMI 30.9
== END 2023-07-22 14:49 | disposition home or self-care (01) ==
PROVIDERS: PCP Nurse Practitioner Family; Visit Provider Physician Assistant Surgical
DX: L98.7 Excessive and redundant skin and subcutaneous tissue (principal); K59.00 Constipation, unspecified; Z90.3 Acquired absence of stomach [part of]; Z98.84 Bariatric surgery status
CPT/HCPCS: 99213

== ENCOUNTER → 2023-07-22 13:42 | Outpatient (BNVA) | payer MEDICARE, MEDICAID, SELFPAY | PROVIDERS: PCP Nurse Practitioner Family; Visit Provider Physician Assistant Surgical | DX: L98.7 Excessive and redundant skin and subcutaneous tissue (principal); E66.9 Obesity, unspecified; Z68.30 Body mass index [BMI] 30.0-30.9, adult; Z90.49 Acquired absence of other specified parts of digestive tract; Z90.3 Acquired absence of stomach [part of]; Z98.890 Other specified postprocedural states | CPT/HCPCS: 99212 ==

== ENCOUNTER 2023-08-18 08:00 | Outpatient (AMB) | payer MEDICARE, MEDICAID, SELFPAY ==
--- NOTE | 2023-08-17 15:39 | MHC.OFFVISWM ---
VS Expanded 08/17/23 15:40 Height 5 ft 2 in Weight 166 lb BMI 30.4 Intake Visit Reasons: TV Pre Op Panni 09/02/23 *AGRICULTURAL CONSULTANT* Allergies aspirin [ASPIRIN] Allergy (Intermediate, Verified 08/17/23 15:40) RASH ibuprofen [IBUPROFEN] Allergy (Intermediate, Verified 08/17/23 15:40) PALPITATIONS Penicillins [PENICILLINS] Allergy (Intermediate, Verified 08/17/23 15:40) RASH Medication List - Last Reconciled 08/17/23 by Timo Up MD cholecalciferol (vitamin D3) 25 mcg PO DAILY clotrimazole 1% 1 appl topical BID inulin (Fiber Gummies) 2 grams PO BID losartan 50 mg PO DAILY multivitamin 1 tab PO DAILY polyethylene glycol 3350 (Miralax) 17 grams PO DAILY HPI HPI TV Pre Op Panni 09/02/23 *AGRICULTURAL CONSULTANT*: Details: Start time: 11.46am, End time: 12.16pm ?I spent 25 minutes speaking with the patient on the phone plus an additional 5 minutes reviewing and updating records for a total of 30 minutes HPI Comments Details: Overall weight loss: 50.2lbs, or 23.44% TBWL Has developed loose skin from weight loss and is scheduled for panniculectomy Is doing 2 Premier protein shakes (2 scoops in 8oz almond milk), one Armenian yogurt and one meal PFSH Medical History (Updated 08/17/23 @ 15:42 by Timo Up MD) Intra-abdominal adhesions Steatosis, liver COVID BMI 35.0-35.9,adult COVID-19 vaccine series completed Asthma History of COVID-19 BMI 37.0-37.9, adult DJD (degenerative joint disease) Anxiety GERD (gastroesophageal reflux disease) Non-insulin dependent type 2 diabetes mellitus Hypertension BMI 39.0-39.9,adult Obesity Surgical History (Updated 01/20/23 @ 14:52 by Lucille Diana CMA) Status post sleeve gastrectomy Hx of ankle fusion Hx of hysterectomy Hx of cholecystectomy Family History Mother Alzheimer disease Father Diabetes Hypertension Brother Hypertension Diabetes Stroke Cancer Daughter Lupus Fibromyalgia Social History Household Members: Spouse Housing: House Are you a primary emergency care tech to a significant other at home: No Do you presently have visiting nurse or other home services: No Alcohol intake: never Patient Tobacco Use Status: Former Tobacco user Quit Date: age 36 Tobacco use type: Cigarette service: No Current occupational status: unemployed Physical Exam Vital Signs: BMI result Body Mass Index 30.4 Telehealth Telehealth Telehealth Platform: Telephone Location of provider rendering services: practice address Location of patient: address on file Patient Identification confirmed using: Name, : Yes Telehealth method: voice only Patient verbally consented to treatment: Yes Patient verbally consented to billing insurance company: Yes Patient informed of any privacy concerns related to visit: Yes Minutes spent on Phone/Video with Pt.: 30 Assessment & Plan Assessment & Plan (1) Excess skin: Code(s): L98.7 - Excessive and redundant skin and subcutaneous tissue Category: Medical Plan: 1. Plan for panniculectomy. Risks of infection, bleeding, asymmetry, wound dehiscence and blood clots were discussed with the patient. 2. You will have a drain the abdomen that may stay a few weeks before it may be removed 3. You will need to be doing sponge baths the first 1-2 weeks. No showers. You need to have help at home to get you up and limit your activities as much as possible for at least the 4-6 weeks after surgery 4. We will arrange for a visiting nurse to come at home to help you with dressing changes and send me pictures of the procedures. We will send at your home supplies for the dressing changes. 5. Change nutritional plan to three Premier protein shakes (ONE scoop EACH in 8oz almond milk) at 9-11am, 1-3pm and 4-6pm and one meal at 7pm (6 forks of protein and 6 forks of salad or vegetables). This will improve weight loss and healing after surgery. 6. Continue all vitamins 7. Do blood work not fasting any day between Friday08/18/23 and Friday08/22/23 and pickle pumper the antibiotic prescription from your pharmacy 8. Start taking one Colace tablet per day, daily 9. Risks and complications were discussed the possibility of bleeding that may require transfusion, loss of the umbilicus, wound dehiscence or infection, dog ears , flap asymmetry. We also discussed the importance of strict avoidance of weight lifting. 10. Avoid aspirin, motrin, ibuprofen, Aleve, Advil, Naproxyn. Only Tylenol is OK Orders: Orders Vitamin A 08/17/23 K91.2 - Postsurgical malabsorption, not elsewhere classified, Z90.3 - Acquired absence of stomach [part of] Hemoglobin A1c 08/17/23 K91.2 - Postsurgical malabsorption, not elsewhere classified, Z90.3 - Acquired absence of stomach [part of] Prothrombin Time INR 08/17/23 K91.2 - Postsurgical malabsorption, not elsewhere classified, Z90.3 - Acquired absence of stomach [part of] Type and Screen 08/17/23 K91.2 - Postsurgical malabsorption, not elsewhere classified, Z90.3 - Acquired absence of stomach [part of] C Reactive Protein 08/17/23 K91.2 - Postsurgical malabsorption, not elsewhere classified, Z90.3 - Acquired absence of stomach [part of] Vitamin D 25-OH Total 08/17/23 K91.2 - Postsurgical malabsorption, not elsewhere classified, Z90.3 - Acquired absence of stomach [part of] Complete Blood Count Auto Diff 08/17/23 K91.2 - Postsurgical malabsorption, not elsewhere classified, Z90.3 - Acquired absence of stomach [part of] Zinc 08/17/23 K91.2 - Postsurgical malabsorption, not elsewhere classified, Z90.3 - Acquired absence of stomach [part of] IRON PROFILE 08/17/23 K91.2 - Postsurgical malabsorption, not elsewhere classified, Z90.3 - Acquired absence of stomach [part of] Comprehensive Met. Panel 08/17/23 K91.2 - Postsurgical malabsorption, not elsewhere classified, Z90.3 - Acquired absence of stomach [part of] TSH reflex Free T4 08/17/23 K91.2 - Postsurgical malabsorption, not elsewhere classified, Z90.3 - Acquired absence of stomach [part of] Vitamin B1 08/17/23 K91.2 - Postsurgical malabsorption, not elsewhere classified, Z90.3 - Acquired absence of stomach [part of] Lipid Panel 08/17/23 K91.2 - Postsurgical malabsorption, not elsewhere classified, Z90.3 - Acquired absence of stomach [part of] Vitamin B12 08/17/23 K91.2 - Postsurgical malabsorption, not elsewhere classified, Z90.3 - Acquired absence of stomach [part of] Partial Thromboplastin Time 08/17/23 K91.2 - Postsurgical malabsorption, not elsewhere classified, Z90.3 - Acquired absence of stomach [part of] Ferritin 08/17/23 K91.2 - Postsurgical malabsorption, not elsewhere classified, Z90.3 - Acquired absence of stomach [part of] Insulin 08/17/23 K91.2 - Postsurgical malabsorption, not elsewhere classified, Z90.3 - Acquired absence of stomach [part of] Medications: New docusate sodium (Colace) 100 mg PO DAILY 90 caps 0RF K59.00 - Constipation, unspecified ciprofloxacin HCl (Cipro) 500 mg PO Q12H 60 tabs 2RF M79.3 - Panniculitis, unspecified
[2023-08-17 15:40] VITALS: BMI 30.4
--- OUTSIDE RECORDS SUMMARY | 2023-08-18 08:11 | XMS_ITS | Continuity of Care Document ---
Author Organization [facility] Address [address] [place] [address]- Care Team Providers Care Heel Slugger Name Role Phone Xander MILLER, Lakisha Primary Care Physician Encounter [facility] Date(s): 02/17/23 - 02/17/[address] [address]- Discharge Disposition: A-D/C AMA Attending Physician: Matthew Gilmore MD Admitting Physician: Matthew Gilmore MD Referring Physician: Not on Staff, Referring MD Allergies, Adverse Reactions, Alerts Substance Reaction Severity Status ibuprofen Active penicillin Active aspirin blisters Active Immunizations Given and Recorded Vaccine Date Status Refusal Reason SARS-CoV-2 (COVID-19) mRNA-1273 vaccine 07/02/21 R ecorded SARS-CoV-2 (COVID-19) mRNA-1273 vaccine 05/23/21 R ecorded influenza virus vaccine, inactivated 01/05/13 Give n influenza virus vaccine, inactivated 1 03/10/12 Gi j luis tetanus-diphtheria toxoids (Td) 2 03/10/12 Given 1Admin Note: VIS given 7.2.12 Questionaire completed and reviewed. 2Admin Note: VIS given 04/23/11 Questionnaire given,completed, and reviewed Medications cloNIDine 0.1 mg oral tablet See Instructions, 1 tablet By Mouth 2 times a day, Refills 0, Maintenance, 03/08/20 2:27:00 EST, Instructions Replace Required Details, Partial fill upon patient request if the prescription is for a schedule II opioid drug. Start Date: 03/08/20 Status: Ordered hydrochlorothiazide 25 mg oral tablet 25 mg, 1, tablet, By Mouth, Daily, # 30 tablet, Refills 0, Tot. Refills 0, Maintenance, 09/01/21 15:50:00 EDT, Route to Pharmacy Electronically, [facility]/pharmacy #[id number], Partial fill upon patient request if the prescription is for a schedule II opioid drug... Start Date: 09/01/21 Status: Ordered losartan 25 mg oral tablet 50 mg, 2, tablet, By Mouth, Daily, # 30 tablet, Refills 0, Maintenance, 09/27/19 9:19:00 EDT Start Date: 09/27/19 Status: Ordered omeprazole 20 mg oral enteric coated capsule 1 capsule = 20 mg, By Mouth, Daily, # 30 capsule, 0 Refills, Maintenance, 09/27/19 9:20:00 EDT, EC Capsule Start Date: 09/27/19 Status: Ordered Problem List Condition Confirmation Course Effective Dates Status H ealth Status Informant Allergic rhinitis Confirmed Active Asthma Confirmed Active Chest pain 1 Confirmed Active Chronic migraine without aura Confirmed Active COVID-19 Confirmed Active COVID-19 2 Confirmed 08/08/21 Active Degeneration of lumbosacral intervertebral disc 3 Confirmed Active Dysthymia Confirmed Active Hypertension Confirmed Active Hypertension, uncontrolled Confirmed Active Lumbosacral spondylosis without myelopathy Confirmed Active Muscle pain Confirmed Active Symptomatic varicose veins Confirmed Active Vitamin D deficiency Confirmed Active 1(normal nuclear stress test in Dec 2011) 2Problem added by Discern Expert 3Lower lumbar disc protrusion with L5 and S1 nerve root effacement Social History Social History Type Response Smoking Status Never smoker entered on: 12/29/14 Sex Patient Care team information Care Team Personnel Name: Lakisha Terrell NP Position: [facility] PCO Associate Professional Member Role: PCP Address: Address: [address] [place] [address]- Care Team Related Persons Name: SIMON WORKMAN Address: home [address] [place] [address] Name: ABA COWART Address: home [address] [place] [address] Name: AVIVA HEARD Address: home [address] [place] [address]
== END 2023-08-18 12:49 | disposition home or self-care (01) ==
LOC: HO.HBS 08:00
PROVIDERS: PCP Nurse Practitioner Family; Visit Provider Surgery
DX: L98.7 Excessive and redundant skin and subcutaneous tissue (principal)
CPT/HCPCS: 99214

== ENCOUNTER → 2023-08-18 08:00 | Outpatient (BNVA) | payer MEDICARE, MEDICAID, SELFPAY | PROVIDERS: PCP Nurse Practitioner Family; Visit Provider Surgery | DX: L98.7 Excessive and redundant skin and subcutaneous tissue (principal); K91.2 Postsurgical malabsorption, not elsewhere classified; K59.00 Constipation, unspecified; M79.3 Panniculitis, unspecified; Z90.3 Acquired absence of stomach [part of] | CPT/HCPCS: 99212 ==

== ENCOUNTER → 2023-08-29 09:42 | Outpatient (BNVA) | payer MEDICARE, MEDICAID, SELFPAY | PROVIDERS: PCP Nurse Practitioner Family; Visit Provider Physician Assistant Surgical ==

== ENCOUNTER 2023-09-02 05:36 | Day surgery (SDC) | payer MEDICARE, MEDICAID, SELFPAY ==
[2023-08-14 11:59] VITALS: BMI 30.2
[2023-08-21 10:39] LABS: MANUAL DIFF FLAG NO
[2023-08-21 10:57] LABS: Basophils Absolute Auto 0.1 X10*3/uL (0.0-0.2); Basophils Percent Auto 0.8 % (0-2); Eosinophils Absolute Auto 0.2 X10*3/uL (0.0-0.4); Eosinophils Percent Auto 2.7 % (0-4); Hematocrit 40.7 % (37.0-47.0); Hemoglobin 13.5 g/dl (12.0-16.0); INTERNATIONAL NORM RATIO 0.9 (0.9-1.1); Imm Gran Abs Auto 0.01 X10*3/uL (0.00-0.03); Imm Gran Pct Auto 0.2 % (0.0-0.4); Lymphocytes Absolute Auto 1.1 X10*3/uL (1.2-4.9); Lymphocytes Percent Auto 17.7 % (20-40); Mean Corpuscular HGB Conc 33.2 g/dl (31.0-35.0); Mean Corpuscular Hemoglobin 30.9 pg (27.0-33.0); Mean Corpuscular Volume 93.1 fL (80.0-98.0); Mean Platelet Volume 9.4 fL (9.4-12.3); Monocytes Absolute Auto 0.6 X10*3/uL (0.1-1.2); Monocytes Percent Auto 8.9 % (2-11); Neutrophils Absolute Auto 4.3 x10*3/uL (2.0-8.3); Neutrophils Percent Auto 69.7 % (45-73); Platelet Count 151 X10*3/uL (160-400); Red Blood Count 4.37 X10*6/uL (4.20-5.50); Red Cell Distribution Width 13.9 % (11.0-16.0); White Blood Count 6.2 X10*3/uL (4.8-10.8)
[2023-08-21 11:00] LABS: Partial Thromboplastin Time 32.2 SEC (26.0-36.8)
[2023-08-21 11:17] LABS: Alanine Aminotransferase 15 U/L (0-31); Alkaline Phosphatase 73 U/L (39-117); Anion Gap 12 (12-20); Aspartate Amino Transferase 17 U/L (5-31); Bilirubin Total 0.6 mg/dL (0.0-1.0); Blood Urea Nitrogen 13 mg/dL (9-16); C Reactive Protein 0.37 mg/dL (< or = 0.50); Calcium 9.7 mg/dL (8.4-10.2); Carbon Dioxide 27 mmol/L (22-29); Chloride 106 mmol/L (96-108); Cholesterol 176 mg/dL (<200); Creatinine Clr Calc Pharmacy 77.4; Estimated Glomerular Filt Rate > 60; Glucose Random 92 mg/dL (60-115); HDL Cholesterol 86 mg/dL (>40); Iron 70 mcg/dL (30-160); LDL Cholesterol Calculated 82 mg/dL (<100); Percent Iron Saturation 21 % (15-50); Potassium 4.5 mmol/L (3.3-5.1); Sodium 140 mmol/L (135-145); Total Iron Binding Capacity 334 mcg/dL (228-428); Total Protein 7.2 g/dL (6.5-8.0); Triglycerides 43 mg/dL (<150); Unsaturated Iron Binding 264 ug/dL
[2023-08-21 11:38] LABS: Vitamin B12 490 pg/mL (200-900)
[2023-08-21 11:43] LABS: Ferritin 89 ng/mL (10-250); TSH reflex Free T4 1.04 uIU/mL (0.32-4.0); Vitamin D 25-OH Total 22.3 ng/mL (>30)
[2023-08-21 12:17] LABS: Estimated Average Glucose 97 mg/dL
[2023-08-21 13:44] LABS: Insulin 9 uU/mL (2-29)
[2023-08-25 01:33] LABS: Zinc 92 mcg/dL (60-130)
[2023-08-26 00:14] LABS: Vitamin A 40 mcg/dL (38-98)
[2023-08-26 16:48] LABS: Vitamin B1 <6 nmol/L (8-30)
[2023-09-02] VITALS (20 sets, daily range): BP systolic 142–171; BP diastolic 78–99; PULSE 68–106; RESP 16; TEMP 36.1–37.2; O2SAT 98–100; BMI 30.5
[2023-09-02] MEDS: Lactated Ringers 1,000 ML 100 ML IVCONT (06:50)
[2023-09-02] MEDS: Aprepitant 32 MG/4.4 ML VIAL IVPUSH (06:51)
[2023-09-02 07:04] LABS: Glucose, Whole Blood 84 mg/dL (60-115)
--- NOTE | 2023-09-02 07:30 | P.CONAN_ITS ---
Documented by User: Chani Dong NP 08/29/23 14:54 HPI - Anesthesia Eval Consult details Narrative: 72yo F for Panniculectomy PMFSH Active Problems Active Problems: All Active Problems Postgastrectomy malabsorption (Acute) Status post sleeve gastrectomy (Acute) Excess skin (Acute) Essential hypertension (Acute) Constipation (Acute) S/P repair of paraesophageal hernia (Acute) Intra-abdominal adhesions (Acute) Steatosis, liver (Acute) Vitamin D deficiency (Acute) Vitamin B12 deficiency (Acute) Generalized anxiety disorder with panic attacks (Acute) DJD (degenerative joint disease) (Acute) Anxiety (Acute) GERD (gastroesophageal reflux disease) (Acute) Non-insulin dependent type 2 diabetes mellitus (Acute) Hypertension (Acute) Obesity (Acute) Past Medical History Medical History Intra-abdominal adhesions Steatosis, liver COVID BMI 35.0-35.9,adult COVID-19 vaccine series completed Asthma History of COVID-19 BMI 37.0-37.9, adult DJD (degenerative joint disease) Anxiety GERD (gastroesophageal reflux disease) Non-insulin dependent type 2 diabetes mellitus Hypertension BMI 39.0-39.9,adult Obesity Family History Family History Mother Alzheimer disease Father Diabetes Hypertension Brother Hypertension Diabetes Stroke Cancer Daughter Lupus Fibromyalgia Family history of problems with anesthesia: No Surgical History Surgical History Status post sleeve gastrectomy Hx of ankle fusion Hx of hysterectomy Hx of cholecystectomy History of Problems with Anesthesia: Yes (Ponv ) Social History Social History Household Members: Spouse Housing: House Are you a primary day care supervisor to a significant other at home: No Do you presently have visiting nurse or other home services: No Alcohol intake: never Patient Tobacco Use Status: Former Tobacco user Tobacco use type: Cigarette Use of substances other than those prescribed or required for medical reasons: No Have you been hit, kicked, punched, or otherwise hurt by someone within the past year? If so, by whom?: No Advance Directives: No Advance Directives Information Provided: Yes Advance Directives on File: No Recently lost weight without trying: No Nutrition Risks: No Nutritional Risk Patient : No : No Poor oral hygiene: Yes (upper partial) service: No Current occupational status: unemployed Meds Allergies Allergy/AdvReac Type Severity Reaction Status Date / Time aspirin [ASPIRIN] Allergy Intermediate RASH Verified 09/02/23 06:36 ibuprofen [IBUPROFEN] Allergy Intermediate PALPITATION Verified 09/02/23 06:36 S Penicillins [PENICILLINS] Allergy Intermediate RASH Verified 09/02/23 06:36 Home Medications ?Medication ?Instructions ?Recorded ?Confirmed ?Last Taken ?Type losartan 50 mg tablet 50 mg PO DAILY 01/30/22 09/02/23 09/01/23 History multivitamin 1 tab PO DAILY 11/11/22 09/02/23 09/01/23 History polyethylene glycol 3350 17 gram 17 g PO DAILY 08/14/23 08/17/23 Unknown History oral powder packet (Miralax) Exam Height,Weight and Vital Signs: Height 5 ft 2 in Weight 74.843 kg Pertinent Lab Results Pertinent Lab Results: Laboratory Tests 08/21/23 08/21/23 10:30 10:37 WBC 6.2 RBC 4.37 Hgb 13.5 Hct 40.7 MCV 93.1 MCH 30.9 MCHC 33.2 RDW 13.9 Plt Count 151 L MPV 9.4 Immature Gran % (Auto) 0.2 Neut % (Auto) 69.7 Lymph % (Auto) 17.7 L [place] % (Auto) 8.9 Eos % (Auto) 2.7 Baso % (Auto) 0.8 Lymph # (Auto) 1.1 L [place] # (Auto) 0.6 Eos # (Auto) 0.2 Baso # (Auto) 0.1 Abs Immat Gran (auto) 0.01 Absolute Neuts (auto) 4.3 Absolute Nucleated RBC 0.000 Nucleated RBC % (auto) 0.0 PT 11.0 L INR 0.9 APTT 32.2 Sodium 140 Potassium 4.5 Chloride 106 Carbon Dioxide 27 Anion Gap 12 BUN 13 Creatinine 0.64 Estim Creat Clear Calc 77.4 Estimated GFR > 60 Random Glucose 92 Estimat Average Glucose 97 Hemoglobin A1c % 5.0 Insulin Level 9 Calcium 9.7 Iron 70 TIBC 334 % Saturation 21 Unsat Iron Binding 264 Ferritin 89 Total Bilirubin 0.6 AST 17 ALT 15 Alkaline Phosphatase 73 C-Reactive Protein 0.37 Total Protein 7.2 Albumin 4.0 Triglycerides 43 Cholesterol 176 LDL Cholesterol, Calc 82 HDL Cholesterol 86 Vitamin A 40 Vitamin B1 <6 L Vitamin B12 490 25-OH Vitamin D Total 22.3 L TSH 1.04 Zinc 92 Blood Type B Positive Antibody Screen NEGATIVE Narrative Narrative: EKG 2021 Vent. Rate : 083 BPM Atrial Rate : 083 BPM P-R Int : 134 ms QRS Dur : 086 ms QT Int : 358 ms P-R-T Axes : 057 020 033 degrees QTc Int : 420 ms Normal sinus rhythm Normal ECG When compared with ECG of 09-JAN-2006 06:53, No significant change was found Assessment and Plan Assessment Anesthesia Assessment: Chart Reviewed Final Anesthetic Review Family History of Problems with Anesthesia: No History of Problems with Anesthesia: Yes (Ponv ) Documented by User: Grace Schilling DO 09/02/23 08:03 [facility] Past Medical History Medical History Intra-abdominal adhesions Steatosis, liver COVID BMI 35.0-35.9,adult COVID-19 vaccine series completed Asthma History of COVID-19 BMI 37.0-37.9, adult DJD (degenerative joint disease) Anxiety GERD (gastroesophageal reflux disease) Non-insulin dependent type 2 diabetes mellitus Hypertension BMI 39.0-39.9,adult Obesity Family History Family History Mother Alzheimer disease Father Diabetes Hypertension Brother Hypertension Diabetes Stroke Cancer Daughter Lupus Fibromyalgia Family history of problems with anesthesia: No Surgical History Surgical History Status post sleeve gastrectomy Hx of ankle fusion Hx of hysterectomy Hx of cholecystectomy History of Problems with Anesthesia: Yes (PONV) Social History Social History Household Members: Spouse Housing: House Are you a primary day care supervisor to a significant other at home: No Do you presently have visiting nurse or other home services: No Alcohol intake: never Patient Tobacco Use Status: Former Tobacco user Tobacco use type: Cigarette Use of substances other than those prescribed or required for medical reasons: No Have you been hit, kicked, punched, or otherwise hurt by someone within the past year? If so, by whom?: No Advance Directives: No Advance Directives Information Provided: Yes Advance Directives on File: No Recently lost weight without trying: No Nutrition Risks: No Nutritional Risk Patient : No : No Poor oral hygiene: Yes (upper partial) service: No Current occupational status: unemployed Meds Allergies Allergy/AdvReac Type Severity Reaction Status Date / Time aspirin [ASPIRIN] Allergy Intermediate RASH Verified 09/02/23 06:36 ibuprofen [IBUPROFEN] Allergy Intermediate PALPITATION Verified 09/02/23 06:36 S Penicillins [PENICILLINS] Allergy Intermediate RASH Verified 09/02/23 06:36 Home Medications ?Medication ?Instructions ?Recorded ?Confirmed ?Last Taken ?Type losartan 50 mg tablet 50 mg PO DAILY 01/30/22 09/02/23 09/01/23 History multivitamin 1 tab PO DAILY 11/11/22 09/02/23 09/01/23 History polyethylene glycol 3350 17 gram 17 g PO DAILY 08/14/23 08/17/23 Unknown History oral powder packet (Miralax) Exam Exam Date and Time: September 02, 2023 0730 Height,Weight and Vital Signs: Height 5 ft 2 in Weight 74.843 kg Height 5 ft 2 in Weight 75.75 kg Vital Signs Temperature 97.0 F 09/02/23 06:49 Pulse Rate 09/02/23 06:49 Respiratory Rate 16 09/02/23 06:49 Blood Pressure 158/85 H 09/02/23 06:49 Pulse Oximetry 98 09/02/23 06:49 Oxygen Delivery Method Room Air 09/02/23 06:49 Temperature 97.0 F 09/02/23 06:49 Pulse Rate 68 09/02/23 06:49 Respiratory Rate 16 09/02/23 06:49 Blood Pressure 158/85 H 09/02/23 06:49 Pulse Oximetry 98 09/02/23 06:49 Oxygen Delivery Method Room Air 09/02/23 06:49 Airway Mallampati Class: II TM Dist: >3cm Neck ROM: Full Partial: Upper Loose/Missing/Broken Teeth: Yes (multiple missing teeth bottom jaw) Heart: S1S2 Lungs: CTAB Assessment and Plan Assessment Anesthesia Assessment: Anesthesia Plan Discussed and Chart Reviewed Final Anesthetic Review Family History of Problems with Anesthesia: No History of Problems with Anesthesia: Yes (PONV) NPO: Yes ASA Class: III Final Preanesthetic Review: No Changes in Pt Med Stat, Meds/Allgs Chart Reviewed, Consent Obtained/Reviewed (department of natural resources officer at bedside for translation) and Anes Risks/Benef Reviewed Patient Risk: Intermediate Procedure Risk: Low Anesthetic Plan Anesthetic Plan: GA and Agree w/ Assess. and Plan Disposition: Standard PACU
--- NOTE | 2023-09-02 07:32 | P.BOP_ITS ---
Brief Operative Note Date of Service: 09/02/23 Pre-op diagnosis: Excess skin Post-op diagnosis: same Procedure: PROCEDURE: Panniculectomy with umbilical transposition and bilateral subcutaneous fat flaps INDICATION: This a 72 year old female who underwent laparoscopic sleeve gastrectomy on 09/19/2021. She had an excellent result achieving a BMI of 29.4 kg/m2 with a total weight loss of 50.2lbs, or 23.44% of her TBWL. As a result, she has developed panniculitis which has not resolved despite continuous use of clotrimazole ointment as well as skin irritation. On exam she has extreme skin laxity due to massive weight loss, with the abdominal pannus completely hanging 4cm below the pubis. Panniculectomy was recommended. We discussed the two options for the panniculectomy of using a combined vertical and horizontal incisions or just a horizontal (bikini) incision. It was my recommendation to do only horizontal incision based on her body habitus and skin laxity. The patient agreed with this. Risks and complications were discussed with the patient including bleeding, infection, umbilical loss, flap necrosis, asymmetry, dehiscence, seroma, VTE. The patient understood the risks and was in agreement to proceed with surgery. PROCEDURE: The incisions were appropriately marked at the preop area with the patient standing and laying down. After induction of general anesthesia a Deleon catheter and pneumatic compression devices were placed. The patient was prepped and draped in the usual sterile manner and the incisions were marked again and confirmed. The skin was infiltrated with lidocaine and epinephrine. The #10 blade scalpel was used for the large incisions and the #15 blade scalpel for the umbilicus. Cautery was used to divide the subcutaneous tissues until the fascia was identified. Then I used the cautery to separate the pannus from the fascia. The inferior incision was made initially and I mobilized the flap for a several centimeters cephalad to the umbilicus. The umbilicus was incised circumferentially and detached from the surrounding tissues all the way to the fascia while its stalk was preserved. With the patient in reflex position I confirmed that the skin flaps were appropriate and would allow for the tissues to come together with reasonable tension. At that point a horizontal incision was made 4 cm above the umbilicus. #10 blade was used for the skin, cautery for the dermis and for the remaining tissues. A subcutaneous fat flap was raised from the upper skin flap in order to fill the space under the skin and support the closure of the two flaps. In addition the inferior flap was mobilized caudal ly for a few centimeters to create a space for the subcutaneous fat flap as well as relieve tension from the closure. A circumferential incision was made at the area where the umbilicus would be re-implanted. The umbilicus was appropriately oriented and was delivered through the defect and was secured in place with a Geraldine. No bleeding was noted anywhere. One FRANK drain was placed from the left corner of the horizontal incision across the wound and was secured in place with a silk suture. A total of 7ml of Zynrelef was applied on top of the fascia and under the subcutaneous fat flaps. The subcutaneous fat flap was secured under the inferior flap with several interrupted 3.0 Monocryl sutures. The two flaps were brought together and were attached at the midline of the horizontal incision with a #3.0 Monocryl suture. At that point the umbilicus was properly oriented and was re-approximated to the skin with 8 interrupted 3.0 Monocryl sutures. In a similar fashion the skin flaps were re-approximated with multiple 3.0 Monocryl sutures. The skin was closed in all incisions and umbilicus with 4.0 Monocryl sutures. Steri-strips, xeroform gauzes and gauzes were used to cover the incisions. An abdominal binder was also placed. The was awaken and was transferred to the recover room in a stable condition. I was present and performed the entire procedure. Ms. Macias was the first will tant. Selvin Up MD, PhD, FACS Surgeon: Selvin Up MD Surgeon: Timo Up MD Anesthesia: GETA, local and other (7ml Zynrelef) Was an Audit Consultant used for this Procedure?: No Audit Consultant: Bell Macias Estimated blood loss (mL): 10 IV fluids (mL): 1,500 Urine output (mL): 500 Pathology: other (Abdominal pannus) Condition: stable Disposition: PACU
--- NOTE | 2023-09-02 07:32 | P.F2F_ITS ---
Service Date Service Date: 09/02/23 Encounter Date of encounter: 09/02/23 Reasons for Services Signs and symptoms assessed: needs care post panniculectomy Reason for long-term: postoperative assessment and/or care Homebound: Leaving the home is medically contraindicated at this time without the asist of a device and/or another person due th the listed conditions above and below. Reason homebound: unable to drive Certification: Based on the above findings, I certify that this patient is confined to the home and needs intermittent long-term care, physical therapy and/or speech therapy, or continues to need occupational therapy. The patient is under my care, and I have initiated the establishment of the plan of care. The patient will be followed by a physician who will periodically review the plan of care. Time Spent With Patient Time: Total time managing care of this patient today 15 minutes.
[2023-09-02] MEDS: fentaNYL citrate/PF 100 MCG/2 ML VIAL 50 MCG IVPUSH (12:00)
[2023-09-02] MEDS: Haloperidol Lactate 5 MG/ML VIAL IVPUSH (12:17)
--- NOTE | 2023-09-02 15:29 | W.MHC.F2F ---
Service Date Service Date: 09/02/23 Encounter Date of encounter: 09/02/23 Reasons for Services Signs and symptoms assessed: s/p panniculectomy with drain placement Reason for custodial: other (wound care, drain care) Homebound: Leaving the home is medically contraindicated at this time without the asist of a device and/or another person due th the listed conditions above and below. Reason homebound: unable to drive Certification: Based on the above findings, I certify that this patient is confined to the home and needs intermittent custodial care, physical therapy and/or speech therapy, or continues to need occupational therapy. The patient is under my care, and I have initiated the establishment of the plan of care. The patient will be followed by a physician who will periodically review the plan of care. Time Spent With Patient Time: Total time managing care of this patient today __30__ minutes.
[2023-09-02] MEDS: Scopolamine 1.5 MG PATCH.TD.3 EAR-BEHIND (16:57)
[2023-09-02] MEDS: Ondansetron ODT 8 MG TAB.RAPDIS TRANSLINGU (16:57)
== END 2023-09-02 17:05 | disposition home or self-care (01) ==
PROVIDERS: PCP Nurse Practitioner Family; Visit Provider Surgery
PROC: 0JB80ZZ Excision of Abdomen Subcutaneous Tissue and Fascia, Open Approach (ICD-10-PCS; CPT 15830; principal; 2023-09-02 07:30)
DX: L98.7 Excessive and redundant skin and subcutaneous tissue (principal); M79.3 Panniculitis, unspecified; I10 Essential (primary) hypertension; Z98.84 Bariatric surgery status; Z90.3 Acquired absence of stomach [part of]
CPT/HCPCS: 15830; 15847; 36415; 80053; 80061; 82306; 82607; 82728; 82947; 83036; 83525; 83540; 84425; 84443; 84590; 84630; 85025; 85610; 85730; 86140; 86850; 86900; 86901; 88304; C9088; C9145; J0131; J1100; J1630; J1956; J2250; J2405; J2704; J3010; J3370

== ENCOUNTER → 2023-09-02 05:36 | Outpatient (BNV) | payer MEDICARE, MEDICAID, SELFPAY | PROVIDERS: PCP Nurse Practitioner Family; Visit Provider Physician Assistant Surgical | DX: M79.3 Panniculitis, unspecified (principal); L98.7 Excessive and redundant skin and subcutaneous tissue | CPT/HCPCS: 15830; G0180 ==

== ENCOUNTER 2023-09-10 11:08 | Outpatient (AMB) | payer MEDICARE, MEDICAID, SELFPAY ==
[2023-09-10 11:21] VITALS: BP 163/78; PULSE 95; TEMP 35.9; O2SAT 95
--- NOTE | 2023-09-10 11:21 | A.OFFVIS_ITS ---
VS Expanded 09/10/23 11:21 BP 163/78 H Blood Pressure Location Rt brachial Blood Pressure Position Sitting Pulse 95 Pulse Source Pulse Oximeter Temp 96.7 F L Temperature Source Tympanic Pulse Oximetry 95 Oxygen Delivery Method Room Air Intake Visit Reasons: (OV) PO Panniculectomy 09/02/23 Allergies aspirin [ASPIRIN] Allergy (Intermediate, Verified 09/10/23 11:23) RASH ibuprofen [IBUPROFEN] Allergy (Intermediate, Verified 09/10/23 11:23) PALPITATIONS Penicillins [PENICILLINS] Allergy (Intermediate, Verified 09/10/23 11:23) RASH HPI Comments Details: Patient is a pleasant 72-year-old female who was accompanied by her daughter who has been caring for her at home. She is status post panniculectomy on 09/02/2023. She did have left labial swelling that has since improved since surgery. This was secondary to left inguinal hernia and dependent fluid collection. No complaints of skin breakdown, reports approximately 50 mL serosanguinous fluid in the collection bulb daily. She continues antibiotics and following meal plan. [facility] Medical History Intra-abdominal adhesions Steatosis, liver COVID BMI 35.0-35.9,adult COVID-19 vaccine series completed Asthma History of COVID-19 BMI 37.0-37.9, adult DJD (degenerative joint disease) Anxiety GERD (gastroesophageal reflux disease) Non-insulin dependent type 2 diabetes mellitus Hypertension BMI 39.0-39.9,adult Obesity Surgical History (Updated 09/10/23 @ 11:48 by LESLIE Gordon) Status post sleeve gastrectomy Hx of ankle fusion Hx of hysterectomy Hx of cholecystectomy Family History Mother Alzheimer disease Father Diabetes Hypertension Brother Hypertension Diabetes Stroke Cancer Daughter Lupus Fibromyalgia Social History Household Members: Spouse Housing: House Are you a primary health careers instructor to a significant other at home: No Do you presently have visiting nurse or other home services: No Alcohol intake: never Patient Tobacco Use Status: Former Tobacco user Tobacco use type: Cigarette service: No Current occupational status: unemployed Physical Exam Vital Signs: Last Vital Signs Temp 96.7 F L 09/10/23 11:21 Pulse 95 09/10/23 11:21 BP 163/78 H 09/10/23 11:21 Pulse Ox 95 09/10/23 11:21 Oxygen Delivery Method Room Air 09/10/23 11:21 Other: Patient refused vaginal exam Skin Other: Transverse incision is clean, dry, intact. Umbilicus is viable. Assessment & Plan Assessment & Plan (1) S/P panniculectomy: Code(s): Z98.890 - Other specified postprocedural states Category: Surgical Plan: Overall doing well. Recommend continue antibiotics, monitoring drain output, follow meal plan as directed by Dr. Up. Continue to wear abdominal binder. Return to clinic 1 week.
== END 2023-09-10 11:49 | disposition home or self-care (01) ==
PROVIDERS: PCP Nurse Practitioner Family; Visit Provider Physician Assistant Surgical
DX: Z48.817 Encounter for surgical aftercare following surgery on the skin and subcutaneous tissue (principal); Z48.89 Encounter for other specified surgical aftercare
CPT/HCPCS: 99024

== ENCOUNTER → 2023-09-10 11:08 | Outpatient (BNVA) | payer MEDICARE, MEDICAID, SELFPAY | PROVIDERS: PCP Nurse Practitioner Family; Visit Provider Physician Assistant Surgical | DX: Z48.817 Encounter for surgical aftercare following surgery on the skin and subcutaneous tissue (principal); Z90.49 Acquired absence of other specified parts of digestive tract; Z90.3 Acquired absence of stomach [part of] | CPT/HCPCS: 99212 ==

== ENCOUNTER 2023-09-15 15:32 | Outpatient (AMB) | payer MEDICARE, MEDICAID, SELFPAY ==
--- NOTE | 2023-09-15 15:33 | A.OFFVIS_ITS ---
VS Expanded 09/15/23 15:56 BP 166/83 H Blood Pressure Location Rt brachial Blood Pressure Position Sitting Pulse 96 Pulse Source Pulse Oximeter Temp 96.2 F L Temperature Source Temporal Artery Scan Pulse Oximetry 99 Oxygen Delivery Method Room Air Intake Visit Reasons: (OV) PO Panniculectomy 09/02/23 Allergies aspirin [ASPIRIN] Allergy (Intermediate, Verified 09/10/23 11:23) RASH ibuprofen [IBUPROFEN] Allergy (Intermediate, Verified 09/10/23 11:23) PALPITATIONS Penicillins [PENICILLINS] Allergy (Intermediate, Verified 09/10/23 11:23) RASH HPI Comments Details: Patient is a pleasant 72-year-old female returns to the office today in follow- up at our request for evaluation of the drain and suture. She is status post panniculectomy on 09/02/2023. She reports approximately 50 mL serosanguineous fluid per day. Continues antibiotics and meal plan per Dr. Up. Reports the previously identified swelling in the left labial area has improved. [facility] Medical History Intra-abdominal adhesions Steatosis, liver COVID BMI 35.0-35.9,adult COVID-19 vaccine series completed Asthma History of COVID-19 BMI 37.0-37.9, adult DJD (degenerative joint disease) Anxiety GERD (gastroesophageal reflux disease) Non-insulin dependent type 2 diabetes mellitus Hypertension BMI 39.0-39.9,adult Obesity Surgical History (Updated 09/10/23 @ 11:48 by LESLIE Gordon) Status post sleeve gastrectomy Hx of ankle fusion Hx of hysterectomy Hx of cholecystectomy Family History Mother Alzheimer disease Father Diabetes Hypertension Brother Hypertension Diabetes Stroke Cancer Daughter Lupus Fibromyalgia Social History Household Members: Spouse Housing: House Are you a primary cna caregiver to a significant other at home: No Do you presently have visiting nurse or other home services: No Alcohol intake: never Patient Tobacco Use Status: Former Tobacco user Tobacco use type: Cigarette service: No Current occupational status: unemployed Physical Exam Skin Other: Incision is clean, dry, intact. Umbilicus is viable. No evidence of dehiscence or infection. The drain suture is intact. Approximately 25 mL serosanguineous fluid within the collection bulb. Swelling noted to the left suprapubic region without evidence of infection. Assessment & Plan Assessment & Plan (1) S/P panniculectomy: Code(s): Z98.890 - Other specified postprocedural states Category: Surgical Plan: Continue antibiotics Continue to monitor drain output. Continue dressing change Continue abdominal binder No significant activity. Swelling in the left vaginal area secondary to communication from known inguinal hernia is improving. Possible referral for left inguinal hernia repair in the future if she wishes. Return to the office in 1 week.
[2023-09-15 15:56] VITALS: BP 166/83; PULSE 96; TEMP 35.7; O2SAT 99
== END 2023-09-15 15:58 | disposition home or self-care (01) ==
PROVIDERS: PCP Nurse Practitioner Family; Visit Provider Physician Assistant Surgical
DX: Z98.890 Other specified postprocedural states (principal)
CPT/HCPCS: 99024

== ENCOUNTER → 2023-09-15 15:32 | Outpatient (BNVA) | payer MEDICARE, MEDICAID, SELFPAY | PROVIDERS: PCP Nurse Practitioner Family; Visit Provider Physician Assistant Surgical | DX: Z48.817 Encounter for surgical aftercare following surgery on the skin and subcutaneous tissue (principal); Z98.890 Other specified postprocedural states | CPT/HCPCS: 99212 ==

== ENCOUNTER 2023-09-24 11:31 | Outpatient (AMB) | payer MEDICARE, MEDICAID, SELFPAY ==
[2023-09-24 11:48] VITALS: BP 143/81; PULSE 83; TEMP 35.6; O2SAT 97
--- NOTE | 2023-09-24 11:48 | MHC.OFFVISWM ---
VS Expanded 09/24/23 11:48 BP 143/81 H Blood Pressure Location Rt brachial Blood Pressure Position Sitting Pulse 83 Pulse Source Pulse Oximeter Temp 96.0 F L Temperature Source Temporal Artery Scan Pulse Oximetry 97 Oxygen Delivery Method Room Air Intake Visit Reasons: (OV) PO Panniculectomy 09/02/23 Allergies aspirin [ASPIRIN] Allergy (Intermediate, Verified 09/24/23 11:48) RASH ibuprofen [IBUPROFEN] Allergy (Intermediate, Verified 09/24/23 11:48) PALPITATIONS Penicillins [PENICILLINS] Allergy (Intermediate, Verified 09/24/23 11:48) RASH HPI Comments Details: Patient is a pleasant 72-year-old female who returns to the office today in follow-up. She is status post panniculectomy on 09/02/2023. She continues to do more than she was told at home, she has been doing housework. She has had approximately 50 mL of serosanguineous fluid from the collection bulb. It was discussed with her the importance of not doing those things. Her incision looks good. She continues the meal plan and antibiotics as directed by Dr. Up. [facility] Medical History Intra-abdominal adhesions Steatosis, liver COVID BMI 35.0-35.9,adult COVID-19 vaccine series completed Asthma History of COVID-19 BMI 37.0-37.9, adult DJD (degenerative joint disease) Anxiety GERD (gastroesophageal reflux disease) Non-insulin dependent type 2 diabetes mellitus Hypertension BMI 39.0-39.9,adult Obesity Surgical History (Updated 09/10/23 @ 11:48 by LESLIE Gordon) Status post sleeve gastrectomy Hx of ankle fusion Hx of hysterectomy Hx of cholecystectomy Family History Mother Alzheimer disease Father Diabetes Hypertension Brother Hypertension Diabetes Stroke Cancer Daughter Lupus Fibromyalgia Social History Household Members: Spouse Housing: House Are you a primary child care specialist to a significant other at home: No Do you presently have visiting nurse or other home services: No Alcohol intake: never Patient Tobacco Use Status: Former Tobacco user Tobacco use type: Cigarette service: No Current occupational status: unemployed Physical Exam Vital Signs: Last Vital Signs Temp 96.0 F L 09/24/23 11:48 Pulse 83 09/24/23 11:48 BP 143/81 H 09/24/23 11:48 Pulse Ox 97 09/24/23 11:48 Oxygen Delivery Method Room Air 09/24/23 11:48 Skin Other: Transverse and umbilical incision healing nicely. Approximately 50 mL of serosanguineous fluid within the collection bulb. Assessment & Plan Assessment & Plan (1) S/P panniculectomy: Code(s): Z98.890 - Other specified postprocedural states Category: Surgical Plan: Patient was told to minimize activity. Continue wearing the abdominal binder. Continue antibiotics and meal plan. Continue tracking fluid output. Return to the office 1 week.
== END 2023-09-24 12:16 | disposition home or self-care (01) ==
PROVIDERS: PCP Nurse Practitioner Family; Visit Provider Physician Assistant Surgical
DX: Z98.890 Other specified postprocedural states (principal)
CPT/HCPCS: 99024

== ENCOUNTER → 2023-09-24 11:31 | Outpatient (BNVA) | payer MEDICARE, MEDICAID, SELFPAY | PROVIDERS: PCP Nurse Practitioner Family; Visit Provider Physician Assistant Surgical | DX: Z48.817 Encounter for surgical aftercare following surgery on the skin and subcutaneous tissue (principal); Z98.890 Other specified postprocedural states | CPT/HCPCS: 99212 ==

== ENCOUNTER 2023-09-29 12:23 | Outpatient (AMB) | payer MEDICARE, MEDICAID, SELFPAY ==
[2023-09-29 12:44] VITALS: BP 145/86; PULSE 85; TEMP 37.5; O2SAT 99
--- NOTE | 2023-09-29 12:44 | MHC.OFFVISWM ---
VS Expanded 09/29/23 12:44 BP 145/86 H Blood Pressure Location Rt brachial Blood Pressure Position Sitting Pulse 85 Pulse Source Pulse Oximeter Temp 99.5 F Temperature Source Temporal Artery Scan Pulse Oximetry 99 Oxygen Delivery Method Room Air Intake Visit Reasons: (ov) PO Panniculectomy 09/02/23 Allergies aspirin [ASPIRIN] Allergy (Intermediate, Verified 09/24/23 11:48) RASH ibuprofen [IBUPROFEN] Allergy (Intermediate, Verified 09/24/23 11:48) PALPITATIONS Penicillins [PENICILLINS] Allergy (Intermediate, Verified 09/24/23 11:48) RASH HPI Comments Details: Patient is a pleasant 72-year-old female who returns to the office today in follow-up. She is status post panniculectomy on 09/02/2023. She reports proximally 30 mL of serous fluid from the collection bulb daily. She continues antibiotics and following meal plan. She offers no significant complaints. [facility] Medical History Intra-abdominal adhesions Steatosis, liver COVID BMI 35.0-35.9,adult COVID-19 vaccine series completed Asthma History of COVID-19 BMI 37.0-37.9, adult DJD (degenerative joint disease) Anxiety GERD (gastroesophageal reflux disease) Non-insulin dependent type 2 diabetes mellitus Hypertension BMI 39.0-39.9,adult Obesity Surgical History Status post sleeve gastrectomy Hx of ankle fusion Hx of hysterectomy Hx of cholecystectomy Family History Mother Alzheimer disease Father Diabetes Hypertension Brother Hypertension Diabetes Stroke Cancer Daughter Lupus Fibromyalgia Social History Household Members: Spouse Housing: House Are you a primary care team assistant to a significant other at home: No Do you presently have visiting nurse or other home services: No Alcohol intake: never Patient Tobacco Use Status: Former Tobacco user Tobacco use type: Cigarette service: No Current occupational status: unemployed Physical Exam Vital Signs: Last Vital Signs Temp 99.5 F 09/29/23 12:44 Pulse 85 09/29/23 12:44 BP 145/86 H 09/29/23 12:44 Pulse Ox 99 09/29/23 12:44 Oxygen Delivery Method Room Air 09/29/23 12:44 Skin Other: Incisions healing nicely. Umbilicus viable. Assessment & Plan Assessment & Plan (1) S/P panniculectomy: Code(s): Z98.890 - Other specified postprocedural states Category: Surgical Plan: Continue meal plan. Continue antibiotics. Continue abdominal binder. Continue monitoring drain output. Return to the office 1 week.
== END 2023-09-29 12:47 | disposition home or self-care (01) ==
PROVIDERS: PCP Nurse Practitioner Family; Visit Provider Physician Assistant Surgical
DX: Z98.890 Other specified postprocedural states (principal)
CPT/HCPCS: 99024

== ENCOUNTER → 2023-09-29 12:23 | Outpatient (BNVA) | payer MEDICARE, MEDICAID, SELFPAY | PROVIDERS: PCP Nurse Practitioner Family; Visit Provider Physician Assistant Surgical | DX: Z48.817 Encounter for surgical aftercare following surgery on the skin and subcutaneous tissue (principal); Z87.2 Personal history of diseases of the skin and subcutaneous tissue; Z98.890 Other specified postprocedural states | CPT/HCPCS: 99212 ==

== ENCOUNTER 2023-10-07 14:40 | Outpatient (AMB) | payer MEDICARE, MEDICAID, SELFPAY ==
--- NOTE | 2023-10-07 15:03 | A.OFFVIS_ITS ---
Intake Visit Reasons: (ov) PO Panniculectomy 09/02/23 Drug Enforcement Agent Required: Yes Allergies aspirin [ASPIRIN] Allergy (Intermediate, Verified 09/24/23 11:48) RASH ibuprofen [IBUPROFEN] Allergy (Intermediate, Verified 09/24/23 11:48) PALPITATIONS Penicillins [PENICILLINS] Allergy (Intermediate, Verified 09/24/23 11:48) RASH Medication List - Last Reconciled 10/07/23 by LESLIE Gallagher bisacodyl (Dulcolax (bisacodyl)) 10 mg NC DAILY PRN cholecalciferol (vitamin D3) 25 mcg PO DAILY cholecalciferol (vitamin D3) 125 mcg PO DAILY ciprofloxacin HCl (Cipro) 500 mg PO Q12H clotrimazole 1% 1 appl topical BID docusate sodium (Colace) 100 mg PO DAILY inulin (Fiber Gummies) 2 grams PO BID losartan 50 mg PO DAILY multivitamin 1 tab PO DAILY polyethylene glycol 3350 (Miralax) 17 grams PO DAILY thiamine HCl (vitamin B1) 100 mg PO DAILY HPI Comments Details: 72-year-old female who returns to the office today in follow-up. She is status post panniculectomy on 09/02/2023. She reports proximally 25 mL of serous fluid from the collection bulb daily. She continues antibiotics and following meal plan. No fevers. At some point this week the drain stitch pulled out of skin, drain still in place. Pt unsure how this happened. [facility] Medical History Intra-abdominal adhesions Steatosis, liver COVID BMI 35.0-35.9,adult COVID-19 vaccine series completed Asthma History of COVID-19 BMI 37.0-37.9, adult DJD (degenerative joint disease) Anxiety GERD (gastroesophageal reflux disease) Non-insulin dependent type 2 diabetes mellitus Hypertension BMI 39.0-39.9,adult Obesity Surgical History Status post sleeve gastrectomy Hx of ankle fusion Hx of hysterectomy Hx of cholecystectomy Family History Mother Alzheimer disease Father Diabetes Hypertension Brother Hypertension Diabetes Stroke Cancer Daughter Lupus Fibromyalgia Social History Household Members: Spouse Housing: House Are you a primary health careers instructor to a significant other at home: No Do you presently have visiting nurse or other home services: No Alcohol intake: never Patient Tobacco Use Status: Former Tobacco user Tobacco use type: Cigarette service: No Current occupational status: unemployed Physical Exam Const General: cooperative, comfortable and no acute distress Orientation/consciousness: patient oriented x3 GI Other: panniculectomy incision healing well, umbilicus viable. Drain with suture not attached to skin, serosanguinous output, no erythema around incision or drain site Neuro General: patient oriented x3 Assessment & Plan Assessment & Plan (1) S/P panniculectomy: Code(s): Z98.890 - Other specified postprocedural states Category: Surgical (2) Status post sleeve gastrectomy: Code(s): Z90.3 - Acquired absence of stomach [part of] Category: Surgical Plan Discussed with pt that I would like to resuture the drain into place to ensure it does not fall out. Pt adamantly refuses. She is tired of experiencing pain, this is worse than giving . She wants to secure it with dressings/tape only. We thoroughly discussed the risks of drain falling out prior to low enough volumes recorded consistently, including infection, seroma, and the possibility that it could cause a long standing problem including ongoing pain/discomfort and potentially require further intervention like drainage. Pt indicates that she understands the risks and does not want resuturing. I reviewed the utmost importance of being extremely careful with the drain tubing, ensure that it does not pull or snag, minimize activity to lessen the chance drain falls out. RTC 1 week. I spent a total of 30 minutes reviewing/updating records, examining the patient and counseling the patient on weight management as detailed above.
== END 2023-10-07 15:13 | disposition home or self-care (01) ==
LOC: HO.HBS 14:40
PROVIDERS: PCP Nurse Practitioner Family; Visit Provider Physician Assistant Surgical
DX: Z98.890 Other specified postprocedural states (principal); Z90.3 Acquired absence of stomach [part of]
CPT/HCPCS: 99024

== ENCOUNTER → 2023-10-07 14:40 | Outpatient (BNVA) | payer MEDICARE, MEDICAID, SELFPAY | PROVIDERS: PCP Nurse Practitioner Family; Visit Provider Physician Assistant Surgical | DX: Z48.89 Encounter for other specified surgical aftercare (principal); Z90.3 Acquired absence of stomach [part of] | CPT/HCPCS: 99212 ==

== ENCOUNTER 2023-10-17 11:44 | Outpatient (AMB) | payer MEDICARE, MEDICAID, SELFPAY ==
--- NOTE | 2023-10-17 11:46 | MHC.OFFVISWM ---
VS Expanded 10/17/23 12:01 BP 138/80 Blood Pressure Location Rt brachial Blood Pressure Position Sitting Pulse 84 Pulse Source Pulse Oximeter Temp 96.3 F L Temperature Source Tympanic Pulse Oximetry 97 Oxygen Delivery Method Room Air Intake Visit Reasons: (ov) PO Panniculectomy 09/02/23 Allergies aspirin [ASPIRIN] Allergy (Intermediate, Verified 10/17/23 12:03) RASH ibuprofen [IBUPROFEN] Allergy (Intermediate, Verified 10/17/23 12:03) PALPITATIONS Penicillins [PENICILLINS] Allergy (Intermediate, Verified 10/17/23 12:03) RASH HPI Comments Details: 72-year-old female returns to the office today in follow-up. She is status post panniculectomy on 09/02/2023. She was seen in the office last week and her drain suture became dislodged. Patient adamantly refused Luis suturing of the drain. Since then, she attempted to secure the drain with tape however the black dot that is supposed to be within the body was out of the body on today's exam and therefore the drain was completely removed. She continues taking antibiotics and following the meal plan. [facility] Medical History Intra-abdominal adhesions Steatosis, liver COVID BMI 35.0-35.9,adult COVID-19 vaccine series completed Asthma History of COVID-19 BMI 37.0-37.9, adult DJD (degenerative joint disease) Anxiety GERD (gastroesophageal reflux disease) Non-insulin dependent type 2 diabetes mellitus Hypertension BMI 39.0-39.9,adult Obesity Surgical History Status post sleeve gastrectomy Hx of ankle fusion Hx of hysterectomy Hx of cholecystectomy Family History Mother Alzheimer disease Father Diabetes Hypertension Brother Hypertension Diabetes Stroke Cancer Daughter Lupus Fibromyalgia Social History Household Members: Spouse Housing: House Are you a primary foster care case manager to a significant other at home: No Do you presently have visiting nurse or other home services: No Alcohol intake: never Patient Tobacco Use Status: Former Tobacco user Tobacco use type: Cigarette service: No Current occupational status: unemployed Physical Exam Skin Other: Transverse incision clean, dry, intact. Assessment & Plan Assessment & Plan (1) S/P panniculectomy: Code(s): Z98.890 - Other specified postprocedural states Category: Surgical Plan: Drain was removed today as it had completely dislodged and was no longer functional. She was encouraged to continue antibiotics for 2 more weeks. Continue wearing her abdominal binder, continue following meal plan. We will have her return to the office in 2 weeks.
[2023-10-17 12:01] VITALS: BP 138/80; PULSE 84; TEMP 35.7; O2SAT 97
== END 2023-10-17 12:14 | disposition home or self-care (01) ==
PROVIDERS: PCP Nurse Practitioner Family; Visit Provider Physician Assistant Surgical
DX: Z98.890 Other specified postprocedural states (principal)
CPT/HCPCS: 99024

== ENCOUNTER → 2023-10-17 11:44 | Outpatient (BNVA) | payer MEDICARE, MEDICAID, SELFPAY | PROVIDERS: PCP Nurse Practitioner Family; Visit Provider Physician Assistant Surgical | DX: Z48.817 Encounter for surgical aftercare following surgery on the skin and subcutaneous tissue (principal); Z98.890 Other specified postprocedural states | CPT/HCPCS: 99212 ==

== ENCOUNTER 2023-10-22 12:49 | Outpatient (AMB) | payer MEDICARE, MEDICAID, SELFPAY ==
--- NOTE | 2023-10-22 12:50 | A.OFFVIS_ITS ---
VS Expanded 10/22/23 12:55 BP 152/82 H Blood Pressure Location Rt brachial Blood Pressure Position Sitting Pulse 97 Pulse Source Pulse Oximeter Temp 96.3 F L Temperature Source Tympanic Pulse Oximetry 98 Oxygen Delivery Method Room Air Intake Visit Reasons: (ov) ABD check possible fluid retention Allergies aspirin [ASPIRIN] Allergy (Intermediate, Verified 10/22/23 13:00) RASH ibuprofen [IBUPROFEN] Allergy (Intermediate, Verified 10/22/23 13:00) PALPITATIONS Penicillins [PENICILLINS] Allergy (Intermediate, Verified 10/22/23 13:00) RASH HPI Comments Details: Patient is a pleasant 72-year-old female who is status post panniculectomy on . She was seen in the office approximately 5 days ago where her dislodged drain was completely removed. She was seen in the office 1 week prior to that where the skin suture had been disrupted although patient refused to have the drain re-sutured. As a result it was non functioning and the black dot of the drain was out of the body when I saw her 5 days ago. She states that over the last 3 days she has noticed increased swelling of her abdomen although denies any pain, fever, chills. The previously noted drain site has healed. [facility]LY [facility], [facility] Medical History Intra-abdominal adhesions Steatosis, liver COVID BMI 35.0-35.9,adult COVID-19 vaccine series completed Asthma History of COVID-19 BMI 37.0-37.9, adult DJD (degenerative joint disease) Anxiety GERD (gastroesophageal reflux disease) Non-insulin dependent type 2 diabetes mellitus Hypertension BMI 39.0-39.9,adult Obesity Surgical History (Updated 10/22/23 @ 13:01 by Marilou Mauro CMA) S/P panniculectomy Status post sleeve gastrectomy Hx of ankle fusion Hx of hysterectomy Hx of cholecystectomy Family History Mother Alzheimer disease Father Diabetes Hypertension Brother Hypertension Diabetes Stroke Cancer Daughter Lupus Fibromyalgia Social History Household Members: Spouse Housing: House Are you a primary home care rn to a significant other at home: No Do you presently have visiting nurse or other home services: No Alcohol intake: never Patient Tobacco Use Status: Former Tobacco user Tobacco use type: Cigarette service: No Current occupational status: unemployed Physical Exam Vital Signs: Last Vital Signs Temp 96.3 F L 10/22/23 12:55 Pulse 97 10/22/23 12:55 BP 152/82 H 10/22/23 12:55 Pulse Ox 98 10/22/23 12:55 Oxygen Delivery Method Room Air 10/22/23 12:55 GI Other: Increase in fluid noted in the lower abdomen Assessment & Plan Assessment & Plan (1) S/P panniculectomy: Code(s): Z98.890 - Other specified postprocedural states Category: Surgical Plan: We will order stat abdominal ultrasound. May possibly need referral to Interventional Radiology for drain placement or drainage if significant fluid accumulation. Orders: Orders US abdomen limited Today Z98.890 - Other specified postprocedural states
[2023-10-22 12:55] VITALS: BP 152/82; PULSE 97; TEMP 35.7; O2SAT 98
== END 2023-10-22 13:15 | disposition home or self-care (01) ==
PROVIDERS: PCP Nurse Practitioner Family; Visit Provider Physician Assistant Surgical
DX: Z98.890 Other specified postprocedural states (principal)
CPT/HCPCS: 99024

== ENCOUNTER → 2023-10-22 12:49 | Outpatient (BNVA) | payer MEDICARE, MEDICAID, SELFPAY | PROVIDERS: PCP Nurse Practitioner Family; Visit Provider Physician Assistant Surgical ==

== ENCOUNTER 2023-10-22 13:16 | Outpatient (REF) | payer MEDICARE, MEDICAID, SELFPAY ==
--- NOTE | ~2023-10-22 | US_ITS ---
Indication: Post procedural state, rule out suspicious fluid collection EXAMINATION: Directed ultrasound. Technique; real-time imaging by the loading manager. Findings. The loading manager states there is no abnormal fluid collection seen in the area of bulging left pelvic area. On the imaging submitted there is felt to be a fluid collection which the loading manager describes as in the region of the mid pelvic region posterior to the scar.. This collection appears to be 6 mm deep to the skin. Measures approximately 3.8 cm x 4 mm. Not measured in the sagittal plane US/US pelvic limited IMPRESSION: Interpretation is limited here The loading manager states no abnormal fluid collection seen in the area of bulging left pelvic area however several images do demonstrate a fluid collection which the loading manager labels mid pelvic posterior to scar. Described above. Correlation needs to be made clinically. Underlying infection cannot be excluded. If further evaluation is warranted recommendation is post contrast CT
== END 2023-10-22 13:17 | disposition home or self-care (01) ==
LOC: HO.US 13:16
PROVIDERS: Visit Provider Physician Assistant Surgical
DX: Z98.890 Other specified postprocedural states (principal)
CPT/HCPCS: 76857; 99212

== ENCOUNTER 2023-10-30 11:52 | Outpatient (AMB) | payer MEDICARE, MEDICAID, SELFPAY ==
[2023-10-30 11:59] VITALS: BP 161/84; PULSE 75; TEMP 35.7; O2SAT 98
--- NOTE | 2023-10-30 11:59 | A.OFFVIS_ITS ---
VS Expanded 10/30/23 11:59 BP 161/84 H Blood Pressure Location Rt brachial Blood Pressure Position Sitting Pulse 75 Pulse Source Pulse Oximeter Temp 96.3 F L Temperature Source Temporal Artery Scan Pulse Oximetry 98 Oxygen Delivery Method Room Air Intake Visit Reasons: (OV) PO Panniculectomy 09/02/23 Allergies aspirin [ASPIRIN] Allergy (Intermediate, Verified 10/30/23 12:00) RASH ibuprofen [IBUPROFEN] Allergy (Intermediate, Verified 10/30/23 12:00) PALPITATIONS Penicillins [PENICILLINS] Allergy (Intermediate, Verified 10/30/23 12:00) RASH HPI Comments Details: Patient is a pleasant 72-year-old female history of panniculectomy on 09/02/2023. Her drain did dislodged, ultimately falling out early. Ultrasound showed question of some collection of fluid, recommendation was for CT without contrast. Patient herself denies any significant abdominal complaints but there is some fullness appreciated in her lower abdomen. She states she is following her meal plan including Premier protein, 2 scoops per shake x2 shakes and a meal with 4 forks protein and 4 forks vegetables. She states that she is exercising by way of walking outside, tracking approximately 300 calories daily. [facility] Medical History Intra-abdominal adhesions Steatosis, liver COVID BMI 35.0-35.9,adult COVID-19 vaccine series completed Asthma History of COVID-19 BMI 37.0-37.9, adult DJD (degenerative joint disease) Anxiety GERD (gastroesophageal reflux disease) Non-insulin dependent type 2 diabetes mellitus Hypertension BMI 39.0-39.9,adult Obesity Surgical History S/P panniculectomy Status post sleeve gastrectomy Hx of ankle fusion Hx of hysterectomy Hx of cholecystectomy Family History Mother Alzheimer disease Father Diabetes Hypertension Brother Hypertension Diabetes Stroke Cancer Daughter Lupus Fibromyalgia Social History Household Members: Spouse Housing: House Are you a primary ocular care technician to a significant other at home: No Do you presently have visiting nurse or other home services: No Alcohol intake: never Patient Tobacco Use Status: Former Tobacco user Tobacco use type: Cigarette service: No Current occupational status: unemployed Physical Exam Vital Signs: Last Vital Signs Temp 96.3 F L 10/30/23 11:59 Pulse 75 10/30/23 11:59 BP 161/84 H 10/30/23 11:59 Pulse Ox 98 10/30/23 11:59 Oxygen Delivery Method Room Air 10/30/23 11:59 GI Other: Incision is clean, dry, intact. Mild fullness without appreciable fluctuance to the lower abdomen Assessment & Plan Assessment & Plan (1) S/P panniculectomy: Code(s): Z98.890 - Other specified postprocedural states Category: Surgical Plan: Decrease protein shakes to 1.[address] scan abdomen and pelvis without contrast about 4 fluid collection in the setting of dislodged drain Encouraged to increase to 350 calories per day walking. Return to clinic 2 weeks.
== END 2023-10-30 12:27 | disposition home or self-care (01) ==
PROVIDERS: PCP Nurse Practitioner Family; Visit Provider Physician Assistant Surgical
DX: Z98.890 Other specified postprocedural states (principal)
CPT/HCPCS: 99024

== ENCOUNTER → 2023-10-30 11:52 | Outpatient (BNVA) | payer MEDICARE, MEDICAID, SELFPAY | PROVIDERS: PCP Nurse Practitioner Family; Visit Provider Physician Assistant Surgical | DX: Z48.817 Encounter for surgical aftercare following surgery on the skin and subcutaneous tissue (principal); Z90.3 Acquired absence of stomach [part of]; Z90.49 Acquired absence of other specified parts of digestive tract | CPT/HCPCS: 99212 ==

== ENCOUNTER 2023-10-31 10:13 | Outpatient (REF) | payer MEDICARE, MEDICAID, SELFPAY ==
--- NOTE | ~2023-10-31 | CT_ITS ---
EXAMINATION: CT ABDOMEN AND PELVIS WITHOUT CONTRAST CLINICAL INFORMATION: Lower abdominal swelling. COMPARISON: Limited pelvic ultrasound 10/22/2023 Abdominal ultrasound 07/30/2021 TECHNIQUE: Multidetector volumetric imaging was performed from the superior aspect of the liver through the pubic symphysis. Sagittal and coronal reformatted images were obtained on the technologist's workstation. This CT examination was performed using dose optimization techniques as appropriate, variously including the following: *Automated exposure control *Adjustment of mA and/or kV according to patient size (this includes techniques or standardized protocols for targeted exams where dose is matched to indication/reason for exam; i.e. extremities or head) *Use of iterative reconstruction technique DLP: 460 mGy-cm FINDINGS: LUNG BASES: The visualized lung bases are unremarkable. LIVER, GALLBLADDER, AND BILIARY TREE: The noncontrast liver is normal in size and contour. No biliary ductal dilatation is present. The gallbladder is nonvisualized. PANCREAS: Unremarkable. SPLEEN: Unremarkable. ADRENAL GLANDS: Unremarkable. KIDNEYS AND URETERS: The kidneys are symmetric in size. No hydronephrosis. No perinephric stranding. Possible 2 mm nonobstructing calculus is identified within the vicinity of the distal left ureter. BLADDER: Unremarkable. GASTROINTESTINAL TRACT: Status post sleeve gastrectomy. No small bowel stricture. Appendix is within normal limits. Diverticular disease of the sigmoid colon. Marked fecal retention in the colon. ABDOMINAL WALL: Extensive infiltration and inflammatory changes within the subcutaneous fat of the lower anterior abdominal wall with surgical clips in place. No focal fluid collection. LYMPH NODES: Nonspecific mesenteric stranding and edema. No bulky lymphadenopathy. VASCULAR: Normal caliber abdominal aorta. PELVIC VISCERA: Uterus is surgically absent. OSSEOUS STRUCTURES: No destructive bone lesions. CT/CT abdomen pelvis wo IV con IMPRESSION: Extensive infiltration and inflammatory changes within the subcutaneous fat of the lower anterior abdominal wall with surgical clips in place. No focal fluid collection. Approximate measurements are 3.4 x 16.9 x 6.2 cm. This correlates with the recent targeted pelvic ultrasound. This may represent fat necrosis related to panniculectomy. Possible 2 mm nonobstructing calculus identified within the vicinity of the distal left ureter. No hydronephrosis.
== END 2023-10-31 10:14 | disposition home or self-care (01) ==
LOC: HO.CT 10:13
PROVIDERS: PCP Nurse Practitioner Family; Visit Provider Physician Assistant Surgical
DX: Z98.890 Other specified postprocedural states (principal)
CPT/HCPCS: 74176

== ENCOUNTER 2023-11-13 10:33 | Outpatient (AMB) | payer MEDICARE, MEDICAID, SELFPAY ==
--- NOTE | 2023-11-13 10:35 | MHC.OFFVISWM ---
VS Expanded 11/13/23 10:43 BP 142/73 H Blood Pressure Location Rt brachial Blood Pressure Position Sitting Pulse 73 Pulse Source Pulse Oximeter Temp 95.5 F L Temperature Source Temporal Artery Scan Pulse Oximetry 100 Oxygen Delivery Method Room Air Intake Visit Reasons: (OV) PO Panniculectomy 09/02/23 Allergies aspirin [ASPIRIN] Allergy (Intermediate, Verified 11/13/23 10:37) RASH ibuprofen [IBUPROFEN] Allergy (Intermediate, Verified 11/13/23 10:37) PALPITATIONS Penicillins [PENICILLINS] Allergy (Intermediate, Verified 11/13/23 10:37) RASH HPI Comments Details: Patient is a pleasant 72-year-old female who returns to the office today in follow-up. She is status post panniculectomy performed on 09/02/2023. There was concern of possible fluid accumulation, ultrasound was negative for abscess. CT scan showed inflammatory changes, consistent with possible fat necrosis. Patient herself denies any significant pain. She has been following the meal plan, utilizing the abdominal binder, walking daily. [facility] Medical History Intra-abdominal adhesions Steatosis, liver COVID BMI 35.0-35.9,adult COVID-19 vaccine series completed Asthma History of COVID-19 BMI 37.0-37.9, adult DJD (degenerative joint disease) Anxiety GERD (gastroesophageal reflux disease) Non-insulin dependent type 2 diabetes mellitus Hypertension BMI 39.0-39.9,adult Obesity Surgical History S/P panniculectomy Status post sleeve gastrectomy Hx of ankle fusion Hx of hysterectomy Hx of cholecystectomy Family History Mother Alzheimer disease Father Diabetes Hypertension Brother Hypertension Diabetes Stroke Cancer Daughter Lupus Fibromyalgia Social History Household Members: Spouse Housing: House Are you a primary assurance services manager health care to a significant other at home: No Do you presently have visiting nurse or other home services: No Alcohol intake: never Patient Tobacco Use Status: Former Tobacco user Tobacco use type: Cigarette service: No Current occupational status: unemployed Physical Exam Vital Signs: Last Vital Signs Temp 95.5 F L 11/13/23 10:43 Pulse 73 11/13/23 10:43 BP 142/73 H 11/13/23 10:43 Pulse Ox 100 11/13/23 10:43 Oxygen Delivery Method Room Air 11/13/23 10:43 Skin Other: Incisions well healed. No appreciable fluctuance midline. Assessment & Plan Assessment & Plan (1) S/P panniculectomy: Code(s): Z98.890 - Other specified postprocedural states Category: Surgical Plan: Overall doing fairly well. Continue current meal plan. Encouraged to continue to walk daily with the use of her abdominal binder on at all times except while showering.
[2023-11-13 10:43] VITALS: BP 142/73; PULSE 73; TEMP 35.3; O2SAT 100
== END 2023-11-13 11:01 | disposition home or self-care (01) ==
PROVIDERS: PCP Nurse Practitioner Family; Visit Provider Physician Assistant Surgical
DX: Z98.890 Other specified postprocedural states (principal)
CPT/HCPCS: 99024

== ENCOUNTER → 2023-11-13 10:33 | Outpatient (BNVA) | payer MEDICARE, MEDICAID, SELFPAY | PROVIDERS: PCP Nurse Practitioner Family; Visit Provider Physician Assistant Surgical | DX: Z48.89 Encounter for other specified surgical aftercare (principal) | CPT/HCPCS: 99212 ==

== ENCOUNTER 2023-12-15 14:16 | Outpatient (AMB) | payer MEDICARE, MEDICAID, SELFPAY ==
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
--- OUTSIDE RECORDS SUMMARY | 2023-12-15 14:19 | XMS_ITS | Continuity of Care Document ---
Author Organization [facility] Address [address] [place] [address]- Care Team Providers Care Community Service Worker Name Role Phone Xander MILLER, Lakisha Primary Care Physician Encounter [facility] Date(s): 11/25/23 - 11/25/[address] [address]- Encounter Diagnosis Abdominal cramping(Final) - 11/25/23 Discharge Disposition: A-D/C Home Attending Physician: Gregory Melgar MD Admitting Physician: Gregory Melgar MD Referring Physician: Not on Staff, Referring [...] 09/01/21 15:50:00 EDT, Route to Pharmacy Electronically, [facility]/pharmacy #[id number], Partial fill upon patient request [...] with L5 and S1 nerve root effacement Vital Signs Most recent to oldest [Reference Range]: 1 2 3 Height 158 cm (11/25/23 8:09 AM) 158 cm (11/25/23 6:47 AM) 158 cm (11/25/23 6:46 AM) Weight 73 kg (11/25/23 8:09 AM) 73 kg (11/25/23 6:47 AM) 73 kg (11/25/23 6:46 AM) Oxygen Saturation [94-100 %] 98 % (11/25/23 6:46 AM) Pulse Rate [55-90 bpm] 69 bpm (11/25/23 6:46 AM) Body Mass Index [18.5-24.99 kg/m2] 29.24 kg/m2 *H* (11/25/23 6:46 AM) Blood Pressure [90-138/55-84 mm Hg] 191/94mm Hg *H* (11/25/23 6:46 AM) Respiratory Rate [16-30 br/min] 16 br/min (11/25/23 6:46 AM) Temperature [96.8-100.4 DegF] 97.3 DegF (11/25/23 6:46 AM) Mode of Delivery (Oxygen) Room air (11/25/23 6:46 AM) Blood pressure sites Arm, left (11/25/23 6:46 AM) Temperature Route Temporal (11/25/23 6:46 AM) Dry Weight 73 kg (11/25/23 8:09 AM) 73 kg (11/25/23 6:47 AM) 73 kg (11/25/23 6:46 AM) Social History Social History Type Response Smoking Status Never smoker entered on: 12/29/14 Sex Patient Care team information Care Team Personnel Name: Lakisha Terrell NP Position: [facility] PCO Associate Professional Member Role: PCP Address: Address: [address] [place] [address]- Care Team Related Persons Name: SIMON WORKMAN Address: home [address] [place] [address] Name: ABA COWART Address: home [address] [place] [address] Name: AVIVA HEARD Address: home [address] [place] [address]
--- OUTSIDE RECORDS SUMMARY | 2023-12-15 14:19 | XMS_ITS | Continuity of Care Document ---
Author Organization [facility] Address [address] [place] [address]- Care Team Providers Care Operating Table Assembler Name Role Phone Xander MILLER, Lakisha Primary Care Physician Encounter [facility] Date(s): 05/30/23 - 11/13/[address] [address]- Attending Physician: Lakisha Terrell NP Admitting Physician: Lakisha Terrell NP Referring Physician: Lakisha Terrell NP Allergies, Adverse Reactions, Alerts Substance Reaction Severity [...] 09/01/21 15:50:00 EDT, Route to Pharmacy Electronically, [facility]/pharmacy #[id number], Partial fill upon patient request if [...] Team Personnel Name: Lakisha Terrell NP Position: [facility] PCO Associate Professional Member Role: PCP Address: Address: [address] [place] [address]- Care Team Related Persons Name: SIMON WORKMAN Address: home [address] [place] [address] Name: ABA COWART Address: home [address] [place] [address] Name: AVIVA HEARD Address: home [address] [place] [address]
--- OUTSIDE RECORDS SUMMARY | 2023-12-15 14:19 | XMS_ITS | Continuity of Care Document ---
Author Organization [facility] Address [address] [place] [address]- Care Team Providers Care Office Chair Assembler Name Role Phone Xander MILLER, Lakisha Primary Care Physician Encounter [facility] [place] Date(s): 12/13/23 - 12/14/[address] [address]- Discharge Disposition: A-D/C Home Attending Physician: Javad Andrew MD Admitting Physician: Javad Andrew MD Referring Physician: Not on Staff, Referring [...] 09/01/21 15:50:00 EDT, Route to Pharmacy Electronically, [facility]/pharmacy #[id number], Partial fill upon patient [...] Most recent to oldest [Reference Range]: 1 Height 162 cm (12/13/23 9:38 PM) Weight 73.5 kg (12/13/23 9:38 PM) Oxygen Saturation [94-100 %] 99 % (12/13/23 9:38 PM) Pulse Rate [55-90 bpm] 82 bpm (12/13/23 9:38 PM) Blood Pressure [90-138/55-84 mm Hg] 148/ 106mm Hg *H* (12/13/23 9:38 PM) Respiratory Rate [16-30 br/min] 18 br/mi n (12/13/23 9:38 PM) Temperature [96.8-100.4 DegF] 96.7 DegF *L* (12/13/23 9:38 PM) Mode of Delivery (Oxygen) Room air (12/13/23 9:38 PM) Blood pressure sites Arm, right (12/13/23 9:38 PM) Temperature Route Temporal (12/13/23 9:38 PM) Dry Weight 73.5 kg (12/13/23 9:38 PM) Weight Obtained Via Patient/family state d (12/13/23 9:38 PM) Social History Social History Type Response Smoking Status Never smoker entered on: 12/29/14 Sex Note * Kamran CEDILLO, Javad Avila: PERFORM Event Display: Patient Education Leaflets Authored Date: [id number] Soft Tissue Contusion ?? [id number] Hematoma de tejidos blandos (contusi??n) Tiene un hematoma (contusi??n). Hay hinchaz??n y un poco de hemorragia debajo de la piel. Esta lesi??n suele tardar de unos d??as a unas semanas en curarse. Iveth alejandra tiempo, el hematoma habitualmente cambiar?? de color mccain a misti azulado, a amarillo verdoso y, luego, a amarillo amarronado. Cuidados en el hogar ??? Mantenga la juan lesionada elevada para reducir el dolor y la hinchaz??n.??Cuando est?? sentado o acostado, eleve la juan lesionada lo m??s que pueda, al nivel del coraz??n.??Jagual es muy importante iveth las primeras 48??horas. ??? Coloque hielo en la juan lesionada para ayudar a reducir el dolor y la hinchaz??n.??Envuelva batool compresa de hielo en batool toalla makenzie. Coloque la compresa sobre la juan con el hematoma iveth 20??minutos, cada 1??o 2??horas iveth el primer d??a. Contin??e esta pr??ctica 3??a 4??veces al d??a hasta que desaparezcan el dolor y la hinchaz??n. Puede hacer batool compresa de hielo colocando cubos de hielo en batool bolsa de pl??stico, o alfredo con batool bolsa de verduras congeladas. ??? A menos que se haya recetado otro medicamento, puede regan paracetamol, ibuprofeno o naproxeno para controlar el dolor. Si tiene batool enfermedad cr??cirilo del h??gado o de los ri??ones, o si alguna vez tuvo batool ??lcera estomacal o hemorragia gastrointestinal, consulte con ch proveedor de atenci??n m??dica antes de regan estos medicamentos. ?? Atenci??n de seguimiento Programe batool katya de seguimiento con el proveedor de atenci??n m??dica, o seg??n le hayan indicado.Llame a ch proveedor si no est?? mejor al cabo de 1??o 2??semanas. ?? Cu??ndo debe buscar atenci??n m??dica?? Llame al proveedor de atenci??n m??dica de inmediato ante cualquiera de los siguientes signos o s??ntomas: ??? Dolor o hinchaz??n en aumento ??? Brazo o pierna (donde est?? el hematoma) fr??os, azulados, entumecidos o con hormigueo ??? Signos de infecci??n: sensaci??n de calor, supuraci??n o aumento del enrojecimiento o del dolor alrededor de la contusi??n ??? Imposibilidad de putty remover la juan lesionada o la parte del cuerpo? El hematoma est?? cerca del nisa, y tiene problemas en la vista o elojo? Moretones frecuentes sin motivos conocidos ?? Last Reviewed Date: 2021 ?? [id number] [employer] Todos los derechos reservados. Esta informaci??n no pretende sustituir la atenci??n m??dica profesional. S??lo ch m??dico puede diagnosticar y tratar un problema de dale. ?? Patient Care team information Care Team Personnel Name: Lakisha Terrell NP Position: [facility] PCO Associate Professional Member Role: PCP Address: Address: [address] [place] [address]- Care Team Related Persons Name: SIMON WORKMAN Address: home [address] [place] [address] Name: ABA COWART Address: home [address] [place] [address] Name: AVIVA HEARD Address: home [address] [place] [address]
[2023-12-15 14:26] VITALS: BP 168/86; PULSE 80; O2SAT 99
== END 2023-12-15 15:03 | disposition home or self-care (01) ==
LOC: HO.HBS 14:16
PROVIDERS: PCP Nurse Practitioner Family; Visit Provider Physician Assistant Surgical
DX: L98.7 Excessive and redundant skin and subcutaneous tissue (principal); Z98.890 Other specified postprocedural states
CPT/HCPCS: 99213

== ENCOUNTER → 2023-12-15 14:16 | Outpatient (BNVA) | payer MEDICARE, MEDICAID, SELFPAY | PROVIDERS: PCP Nurse Practitioner Family; Visit Provider Physician Assistant Surgical | DX: Z48.817 Encounter for surgical aftercare following surgery on the skin and subcutaneous tissue (principal); Z90.49 Acquired absence of other specified parts of digestive tract; Z90.3 Acquired absence of stomach [part of] | CPT/HCPCS: 99212 ==

== ENCOUNTER 2023-12-26 08:50 | Outpatient (AMB) | payer MEDICARE, MEDICAID, SELFPAY ==
--- NOTE | 2023-12-26 08:52 | A.OFFVIS_ITS ---
VS Expanded 12/26/23 09:00 BP 133/72 Blood Pressure Location Rt brachial Blood Pressure Position Sitting Pulse 72 Pulse Source Pulse Oximeter Temp 96.8 F Temperature Source Temporal Artery Scan Pulse Oximetry 99 Oxygen Delivery Method Room Air Height 5 ft 2 in Weight 164 lb 3.2 oz BMI 30.0 Body Fat % 41.3 Body Fat Mass 61.6 Fat Free Mass 96.4 Visceral Fat Rating 12.0 Body Water % 41.3 Body Water Mass 67.6 Muscle Mass/Score 91.4 Basal Metabolic Rate/Score 1,330 Intake Visit Reasons: (OV) PO Panniculectomy 09/02/23 Allergies aspirin [ASPIRIN] Allergy (Intermediate, Verified 12/26/23 08:58) RASH ibuprofen [IBUPROFEN] Allergy (Intermediate, Verified 12/26/23 08:58) PALPITATIONS Penicillins [PENICILLINS] Allergy (Intermediate, Verified 12/26/23 08:58) RASH HPI Comments Details: Patient is a 73-year-old female who presents to the office today in follow-up. She underwent panniculectomy on 09/02/2023. She was dissatisfied with the results of herprocedure that was done for medical reasons given her recurrent panniculitis. It was explained to her that she did weigh more at the time of her procedure but she was quite insistent on having the procedure done and the outcome of the procedure was quite good. She did not have any dehiscence or postoperative wounds. At this point, we will give her a more structured meal plan that she will need to follow exactly. It was discussed that she certainly may seek a 2nd opinion but she would prefer to follow a structured meal plan here in the office. [facility] Medical History Intra-abdominal adhesions Steatosis, liver COVID BMI 35.0-35.9,adult COVID-19 vaccine series completed Asthma History of COVID-19 BMI 37.0-37.9, adult DJD (degenerative joint disease) Anxiety GERD (gastroesophageal reflux disease) Non-insulin dependent type 2 diabetes mellitus Hypertension BMI 39.0-39.9,adult Obesity Surgical History S/P panniculectomy Status post sleeve gastrectomy Hx of ankle fusion Hx of hysterectomy Hx of cholecystectomy Family History Mother Alzheimer disease Father Diabetes Hypertension Brother Hypertension Diabetes Stroke Cancer Daughter Lupus Fibromyalgia Social History Household Members: Spouse Housing: House Are you a primary rn managed care to a significant other at home: No Do you presently have visiting nurse or other home services: No Alcohol intake: never Patient Tobacco Use Status: Former Tobacco user Tobacco use type: Cigarette service: No Current occupational status: unemployed Physical Exam Vital Signs: Last Vital Signs Temp 96.8 F 12/26/23 09:00 Pulse 72 12/26/23 09:00 BP 133/72 12/26/23 09:00 Pulse Ox 99 12/26/23 09:00 Oxygen Delivery Method Room Air 12/26/23 09:00 BMI result Body Mass Index 30.0 Skin Other: Excess skin and fat to bilateral flanks. The incision itself has healed nicely Assessment & Plan Assessment & Plan (1) S/P panniculectomy: Code(s): Z98.890 - Other specified postprocedural states Category: Surgical Plan: New meal plan: 7-9 Premier protein, half scoop in 8 oz of unsweetened [place] milk 10-12 another shake 1 pm a meal with 4 forks of protein and 4 forks of vegetables 3-5 another shake 6 pm another meal with 4 forks of protein and 4 forks of vegetables 8-10 celebrate protein bar Exercise plan, stationary bike burning 300 calories per day. She was additionally encouraged to send me pictures of her plate that she prepares. We will have her follow-up monthly.
[2023-12-26 09:00] VITALS: BP 133/72; PULSE 72; TEMP 36; O2SAT 99
== END 2023-12-26 09:47 | disposition home or self-care (01) ==
PROVIDERS: PCP Nurse Practitioner Family; Visit Provider Physician Assistant Surgical
DX: E66.9 Obesity, unspecified (principal); Z68.30 Body mass index [BMI] 30.0-30.9, adult
CPT/HCPCS: 99213

== ENCOUNTER → 2023-12-26 08:50 | Outpatient (BNVA) | payer MEDICARE, MEDICAID, SELFPAY | PROVIDERS: PCP Nurse Practitioner Family; Visit Provider Physician Assistant Surgical | DX: Z98.890 Other specified postprocedural states (principal) | CPT/HCPCS: 99212 ==

== ENCOUNTER 2024-03-01 12:41 | Outpatient (AMB) | payer MEDICARE, MEDICAID, SELFPAY ==
--- NOTE | 2024-03-01 12:56 | A.OFFVIS_ITS ---
VS Expanded 03/01/24 13:17 BP 179/68 H Blood Pressure Location Rt brachial Blood Pressure Position Sitting Pulse 88 Pulse Source Pulse Oximeter Temp 97.1 F Temperature Source Temporal Artery Scan Pulse Oximetry 98 Oxygen Delivery Method Room Air Height 5 ft 2 in Weight 169 lb 9.6 oz BMI 31.0 Body Fat % 41.5 Body Fat Mass 70.4 Fat Free Mass 99.2 Visceral Fat Rating 12.0 Body Water % 41.2 Body Water Mass 69.8 Muscle Mass/Score 94.2 Basal Metabolic Rate/Score 1,368 Intake Visit Reasons: (OV) PO Panniculectomy 09/02/23 Leather Belt Loop Cutter Required: Yes Leather Belt Loop Cutter Services: Leather Belt Loop Cutter Present Leather Belt Loop Cutter Name: hospital cmi Allergies aspirin [ASPIRIN] Allergy (Intermediate, Verified 03/01/24 13:04) RASH ibuprofen [IBUPROFEN] Allergy (Intermediate, Verified 03/01/24 13:04) PALPITATIONS Penicillins [PENICILLINS] Allergy (Intermediate, Verified 03/01/24 13:04) RASH HPI Comments Details: Patient is a 73-year-old female who returns to the office today in follow-up. She is six-month post panniculectomy performed on 09/02/2023. She was last seen in the office approximately 2 months ago wishing to lose more weight. Weight on 12/26/2023 was 164.2 lb. Weight today is 169.6 lb with a BMI of 31. She states that since last being seen, she has had significant increase in stress with her grandson court date approaching, her brother came from [place] and required toe amputation secondary to diabetes, her was sick and she has not been able to exercise at all. She has been very stressed at home. She is however following the meal plan exactly as directed. She was given a very structured meal plan includin-9 Premier protein, half scoop in 8 oz of unsweetened [place] milk 10-12 another shake 1 pm a meal with 4 forks of protein and 4 forks of vegetables 3-5 another shake 6 pm another meal with 4 forks of protein and 4 forks of vegetables 8-10 celebrate protein bar [facility] Medical History Intra-abdominal adhesions Steatosis, liver COVID BMI 35.0-35.9,adult COVID-19 vaccine series completed Asthma History of COVID-19 BMI 37.0-37.9, adult DJD (degenerative joint disease) Anxiety GERD (gastroesophageal reflux disease) Non-insulin dependent type 2 diabetes mellitus Hypertension BMI 39.0-39.9,adult Obesity Surgical History S/P panniculectomy Status post sleeve gastrectomy Hx of ankle fusion Hx of hysterectomy Hx of cholecystectomy Family History Mother Alzheimer disease Father Diabetes Hypertension Brother Hypertension Diabetes Stroke Cancer Daughter Lupus Fibromyalgia Social History Household Members: Spouse Housing: House Are you a primary pet caretaker to a significant other at home: No Do you presently have visiting nurse or other home services: No Alcohol intake: never Patient Tobacco Use Status: Former Tobacco user Tobacco use type: Cigarette service: No Current occupational status: unemployed Assessment & Plan Assessment & Plan (1) Obesity: Code(s): E66.9 - Obesity, unspecified Category: Medical Plan: Patient will continue to follow the meal plan. She was given strategy to address her exercise issues. She will take 1 hour per day and go to the gym with a goal of burning 300 calories per day. We will have her return to the office in approximately 2 months. Additionally, she was encouraged to send weight measurements and text with any questions.
[2024-03-01 13:17] VITALS: BP 179/68; PULSE 88; TEMP 36.2; O2SAT 98; BMI 31.0
== END 2024-03-01 13:34 | disposition home or self-care (01) ==
PROVIDERS: PCP Nurse Practitioner Family; Visit Provider Physician Assistant Surgical
DX: E66.9 Obesity, unspecified (principal); E66.811 Obesity, class 1; Z68.31 Body mass index [BMI] 31.0-31.9, adult
CPT/HCPCS: 99213; G2211

== ENCOUNTER → 2024-03-01 12:41 | Outpatient (BNVA) | payer MEDICARE, MEDICAID, SELFPAY | PROVIDERS: PCP Nurse Practitioner Family; Visit Provider Physician Assistant Surgical | DX: E66.9 Obesity, unspecified (principal); Z71.3 Dietary counseling and surveillance; Z68.31 Body mass index [BMI] 31.0-31.9, adult; Z98.890 Other specified postprocedural states | CPT/HCPCS: 99212 ==

== ENCOUNTER 2024-06-25 10:10 | Outpatient (AMB) | payer MEDICARE, MEDICAID, SELFPAY ==
--- NOTE | 2024-06-25 10:15 | MHC.OFFVISWM ---
VS Expanded 06/25/24 10:16 BP 155/74 H Blood Pressure Location Lt brachial Blood Pressure Position Sitting Pulse 68 Height 5 ft 2 in Weight 177 lb 8 oz BMI 32.5 Body Fat % 43.9 Body Fat Mass 78.0 Fat Free Mass 99.6 Visceral Fat Rating 13.0 Body Water % 39.5 Body Water Mass 70.2 Muscle Mass/Score 94.6 Basal Metabolic Rate/Score 1,387 Intake Visit Reasons: (OV) PO Panniculectomy 09/02/23 Intake Note: Post Panniculectomy 09/02/23 c/o weight gain Court Messenger Required: Yes Court Messenger Services: Court Messenger Present Court Messenger Name: hospital cmi Allergies aspirin [ASPIRIN] Allergy (Intermediate, Verified 03/01/24 13:04) RASH ibuprofen [IBUPROFEN] Allergy (Intermediate, Verified 03/01/24 13:04) PALPITATIONS Penicillins [PENICILLINS] Allergy (Intermediate, Verified 03/01/24 13:04) RASH Medication List - Last Reconciled 06/25/24 by LESLIE Gordon bisacodyl (Dulcolax (bisacodyl)) 10 mg IA DAILY PRN cholecalciferol (vitamin D3) 25 mcg PO DAILY cholecalciferol (vitamin D3) 125 mcg PO DAILY clotrimazole 1% 1 appl topical BID inulin (Fiber Gummies) 2 grams PO BID losartan 50 mg PO DAILY multivitamin 1 tab PO DAILY HPI Comments Details: Patient is a 73-year-old female who returns to the office today in follow-up. She is 9 months post panniculectomy performed on 09/02/2023. She is with history of sleeve gastrectomy performed on 08/30/2021. Weight today is 177.8 lb with a BMI of 32.5. She states that since last being seen, she has had significant increase in stress with her grandson court date approaching, her brother came from [place] and required toe amputation secondary to diabetes, her was sick and she has not been able to exercise at all. She has been very stressed at home. States she was seen by psych and started on prozac but stopped this due to palpitations. She is not sleeping well. She states she does not want to take medicine. She is talking with therapist. She is however following the meal plan exactly as directed. She was given a very structured meal plan includin-9 Premier protein, half scoop in 8 oz of unsweetened [place] milk 10-12 another shake 1 pm a meal with 4 forks of protein and 4 forks of vegetables 3-5 another shake 6 pm another meal with 4 forks of protein and 4 forks of vegetables 8-10 celebrate protein bar Exercise plan: nothing formal has stationary bike, treadmill at home. [facility] Medical History Intra-abdominal adhesions Steatosis, liver COVID BMI 35.0-35.9,adult COVID-19 vaccine series completed Asthma History of COVID-19 BMI 37.0-37.9, adult DJD (degenerative joint disease) Anxiety GERD (gastroesophageal reflux disease) Non-insulin dependent type 2 diabetes mellitus Hypertension BMI 39.0-39.9,adult Obesity Surgical History S/P panniculectomy Status post sleeve gastrectomy Hx of ankle fusion Hx of hysterectomy Hx of cholecystectomy Family History Mother Alzheimer disease Father Diabetes Hypertension Brother Hypertension Diabetes Stroke Cancer Daughter Lupus Fibromyalgia Social History Household Members: Spouse Housing: House Are you a primary patient care nursing assistant to a significant other at home: No Do you presently have visiting nurse or other home services: No Alcohol intake: never Patient Tobacco Use Status: Former Tobacco user Tobacco use type: Cigarette service: No Current occupational status: unemployed Physical Exam Vital Signs: Last Vital Signs Pulse 68 06/25/24 10:16 BP 155/74 H 06/25/24 10:16 BMI result Body Mass Index 32.5 Const General: healthy appearing and no acute distress Resp Effort & Inspection: normal respiratory effort Auscultation: clear to auscultation bilaterally Cardio Rate: regular rate Rhythm: regular rhythm GI Auscultation: normal bowel sounds Extrem General: Yes normal to inspection Assessment & Plan Assessment & Plan (1) Status post sleeve gastrectomy: Code(s): Z90.3 - Acquired absence of stomach [part of] Category: Surgical Plan: Patient has been encouraged to follow the meal plan. She has been encouraged to resume her exercise. This will not only help her with weight loss but also with her stress. I have encouraged her to additionally discuss with her primary care physician ongoing stress and poor sleep hygiene. She states that she will do so. She was encouraged to track her calories, use the exercise machines that she has at home. Goal is 350-400 calories per day. We will have her return to the office in a proximally 2 months. Text weekly with any questions or concerns.
[2024-06-25 10:16] VITALS: BP 155/74; PULSE 68; BMI 32.5
== END 2024-06-25 10:52 | disposition home or self-care (01) ==
LOC: HO.HBS 10:11
PROVIDERS: PCP Nurse Practitioner Family; Visit Provider Physician Assistant Surgical
DX: E66.3 Overweight (principal); Z68.32 Body mass index [BMI] 32.0-32.9, adult; Z90.3 Acquired absence of stomach [part of]; Z98.84 Bariatric surgery status
CPT/HCPCS: 99213; G2211

== ENCOUNTER → 2024-06-25 10:10 | Outpatient (BNVA) | payer MEDICARE, MEDICAID, SELFPAY | PROVIDERS: PCP Nurse Practitioner Family; Visit Provider Physician Assistant Surgical | DX: Z90.3 Acquired absence of stomach [part of] (principal); Z98.890 Other specified postprocedural states | CPT/HCPCS: 99212 ==

== ENCOUNTER 2024-11-08 14:32 | Outpatient (AMB) | payer MEDICARE, MEDICAID, SELFPAY ==
--- NOTE | 2024-11-08 14:33 | A.OFFVIS_ITS ---
VS Expanded 11/08/24 14:43 BP 141/77 H Blood Pressure Location Rt brachial Blood Pressure Position Sitting Pulse 96 Pulse Source Pulse Oximeter Temp 96.2 F L Temperature Source Temporal Artery Scan Pulse Oximetry 97 Oxygen Delivery Method Room Air Height 5 ft 2 in Weight 182 lb BMI 33.3 Body Fat % 41.3 Body Fat Mass 75.2 Fat Free Mass 106.8 Visceral Fat Rating 13.0 Body Water % 41.3 Body Water Mass 75.2 Muscle Mass/Score 101.2 Basal Metabolic Rate/Score 1,465 Intake Visit Reasons: (OV) PO Panniculectomy 09/02/23 Water Quality Control Engineer Required: Yes Water Quality Control Engineer Services: Water Quality Control Engineer Present Water Quality Control Engineer Name: hospital cmi Allergies aspirin (ASPIRIN) Allergy (Intermediate, Verified 03/01/24 13:04) RASH ibuprofen (IBUPROFEN) Allergy (Intermediate, Verified 03/01/24 13:04) PALPITATIONS Penicillins (PENICILLINS) Allergy (Intermediate, Verified 03/01/24 13:04) RASH HPI Comments Details: Patient is a 73-year-old female who returns to the office today in follow-up. She is 1 year 2 months post panniculectomy performed on 09/02/2023. She is with history of sleeve gastrectomy performed on 08/30/2021. Weight today is 182 lb with a BMI of 33.3. She states she is frustrated with not losing weight. She states that since last being seen, she has had significant increase in stress with her grandson court date approaching, her brother came from [place] and required toe amputation secondary to diabetes, her was sick and she has not been able to exercise at all. She has been very stressed at home. States she was seen by psych and started on prozac but stopped this due to palpitations. She is not sleeping well. She states she does not want to take medicine. She states she does not have a therapist and when offered she declines. She states she doen't have an appetite. She feels as though solid foods are too heavy in her stomach . Upon further questioning, she can have cucumbers, vegetables, fish, chicken. It is red meat that is too heavy for her. She was using premier protein but changed to Premier protein with fiber 25 gm per 2 scoops. In the morning shake 1 scoop with 8 oz almond milk, 7-9 am slices of cucumber at lunch another shake 1 scoop at 5-6 in 8 oz almond milk Drinking 20 oz. She was given a very structured meal plan includin-9 Premier protein, half scoop in 8 oz of unsweetened [place] milk 10-12 another shake 1 pm a meal with 4 forks of protein and 4 forks of vegetables 3-5 another shake 6 pm another meal with 4 forks of protein and 4 forks of vegetables 8-10 celebrate protein bar Exercise plan: walking 7 days per week 1 hour PFS Medical History Intra-abdominal adhesions Steatosis, liver COVID BMI 35.0-35.9,adult COVID-19 vaccine series completed Asthma History of COVID-19 BMI 37.0-37.9, adult DJD (degenerative joint disease) Anxiety GERD (gastroesophageal reflux disease) Non-insulin dependent type 2 diabetes mellitus Hypertension BMI 39.0-39.9,adult Obesity Surgical History S/P panniculectomy Status post sleeve gastrectomy Hx of ankle fusion Hx of hysterectomy Hx of cholecystectomy Family History Mother Alzheimer disease Father Diabetes Hypertension Brother Hypertension Diabetes Stroke Cancer Daughter Lupus Fibromyalgia Social History Household Members: Spouse Housing: House Are you a primary care transitions nurse to a significant other at home: No Do you presently have visiting nurse or other home services: No Alcohol intake: never Patient Tobacco Use Status: Former Tobacco user Tobacco use type: Cigarette service: No Current occupational status: unemployed Physical Exam Const General: healthy appearing and no acute distress Resp Effort & Inspection: normal respiratory effort Auscultation: clear to auscultation bilaterally Cardio Rate: regular rate Rhythm: regular rhythm GI Auscultation: normal bowel sounds Extrem General: Yes normal to inspection Assessment & Plan Assessment & Plan (1) Status post sleeve gastrectomy: Code(s): Z90.3 - Acquired absence of stomach [part of] Category: Surgical Plan: Discussed with the patient that changing meal plans without communicating leads to miscalculations and errors. She was frustrated with her weight gain, recommended changing her meal plan: Premier protein with fiber (25 g per 2 scoops) 2 scoops in the morning from 7-9 and 2 scoops mid day from 11-1 Meal at 5 with 5 forks of protein and 3 forks of vegetables Patient is walking every day but is unclear as to duration, distance, calories burned. Discussed Hello Agent loren and tracking calories burned with a goal of 300 per day. She does also report constipation, she is not drinking enough fluids, discussed having 64 oz of fluids per day, senna was added at night. Return to clinic 3 months Medications: New sennosides (senna) 17.2 mg (2 x 8.6 mg) PO BEDTIME 90 tabs 0RF constipation
[2024-11-08 14:43] VITALS: BP 141/77; PULSE 96; TEMP 35.7; O2SAT 97; BMI 33.3
== END 2024-11-08 15:14 | disposition home or self-care (01) ==
PROVIDERS: PCP Nurse Practitioner Family; Visit Provider Physician Assistant Surgical
DX: E66.9 Obesity, unspecified (principal); Z68.33 Body mass index [BMI] 33.0-33.9, adult; Z90.3 Acquired absence of stomach [part of]; Z98.84 Bariatric surgery status
CPT/HCPCS: 99213; G2211

== ENCOUNTER → 2024-11-08 14:32 | Outpatient (BNVA) | payer MEDICARE, MEDICAID, SELFPAY | PROVIDERS: PCP Nurse Practitioner Family; Visit Provider Physician Assistant Surgical | DX: Z48.815 Encounter for surgical aftercare following surgery on the digestive system (principal); Z90.3 Acquired absence of stomach [part of] | CPT/HCPCS: 99212 ==

== ENCOUNTER 2025-02-23 13:16 | Outpatient (AMB) | payer MEDICARE, MEDICAID, SELFPAY ==
--- NOTE | 2025-02-23 13:31 | MHC.OFFVISWM ---
VS Expanded 02/23/25 13:43 BP 184/80 H Blood Pressure Location Rt brachial Blood Pressure Position Sitting Pulse 75 Pulse Source Pulse Oximeter Temp 96.1 F L Temperature Source Temporal Artery Scan Pulse Oximetry 98 Oxygen Delivery Method Room Air Height 5 ft 2 in Weight 186 lb BMI 34.0 Body Fat % 44.4 Body Fat Mass 82.4 Fat Free Mass 103.4 Visceral Fat Rating 14.0 Body Water % 39.1 Body Water Mass 72.8 Muscle Mass/Score 98.2 Basal Metabolic Rate/Score 1,438 Intake Visit Reasons: (OV) PO Panniculectomy 09/02/23 Dice Table Operator Required: Yes Dice Table Operator Name: Bony Birch, [id number] Information Interpreted: clinical only Allergies aspirin (ASPIRIN) Allergy (Intermediate, Verified 03/01/24 13:04) RASH ibuprofen (IBUPROFEN) Allergy (Intermediate, Verified 03/01/24 13:04) PALPITATIONS Penicillins (PENICILLINS) Allergy (Intermediate, Verified 03/01/24 13:04) RASH HPI Comments Details: Patient is a 73-year-old female who returns to the office today in follow-up. She is 1 year 5 months post panniculectomy performed on 09/02/2023. She is with history of sleeve gastrectomy performed on 08/30/2021. Weight today is 186 lb with a BMI of 34.0. Weight gain of 4lb since last OV 3mo ago. At last visit- She states she is frustrated with not losing weight. She states that since last being seen, she has had significant increase in stress with her grandson court date approaching, her brother came from [place] and required toe amputation secondary to diabetes, her was sick and she has not been able to exercise at all. She has been very stressed at home. States she was seen by psych and started on prozac but stopped this due to palpitations. She is not sleeping well. She states she does not want to take medicine. She states she does not have a therapist and when offered she declines. She states she doen't have an appetite. She feels as though solid foods are too heavy in her stomach . Upon further questioning, she can have cucumbers, vegetables, fish, chicken. It is red meat that is too heavy for her. She was using premier protein but changed to Premier protein with fiber 25 gm per 2 scoops. Today, pt states she has been following the meal plan exactly but is not losing weight. She gives me the paper that Javad gave her listing her meal plan as below. However she notes that she is sometimes unable to finish her protein intake. She is unhappy with her panniculectomy outcome. She does not like the excess skin of her flanks. She was given a very structured meal plan at last visit including: Premier protein with fiber (25 g per 2 scoops) 2 scoops in the morning from 7-9 and 2 scoops mid day from 11-1 Meal at 5 with 5 forks of protein and 3 forks of vegetables Fluid intake is better- pt denies taking in any other beverages Exercise plan: has a bike and treadmill at home- 30-60min each day, hernandes 200-250 calories per day PFSH Medical History Intra-abdominal adhesions Steatosis, liver COVID BMI 35.0-35.9,adult COVID-19 vaccine series completed Asthma History of COVID-19 BMI 37.0-37.9, adult DJD (degenerative joint disease) Anxiety GERD (gastroesophageal reflux disease) Non-insulin dependent type 2 diabetes mellitus Hypertension BMI 39.0-39.9,adult Obesity Surgical History S/P panniculectomy Status post sleeve gastrectomy Hx of ankle fusion Hx of hysterectomy Hx of cholecystectomy Family History Mother Alzheimer disease Father Diabetes Hypertension Brother Hypertension Diabetes Stroke Cancer Daughter Lupus Fibromyalgia Social History Household Members: Spouse Housing: House Are you a primary foster care social worker to a significant other at home: No Do you presently have visiting nurse or other home services: No Alcohol intake: never Patient Tobacco Use Status: Former Tobacco user Tobacco use type: Cigarette service: No Current occupational status: unemployed Physical Exam Vital Signs: Last Vital Signs Temp 96.1 F L 02/23/25 13:43 Pulse 75 02/23/25 13:43 BP 184/80 H 02/23/25 13:43 Pulse Ox 98 02/23/25 13:43 Oxygen Delivery Method Room Air 02/23/25 13:43 BMI result Body Mass Index 34.0 Assessment & Plan Assessment & Plan (1) Obesity: Code(s): E66.9 - Obesity, unspecified Category: Medical (2) Status post sleeve gastrectomy: Code(s): Z90.3 - Acquired absence of stomach [part of] Category: Medical Plan She has uncontrolled HTN with multiple high readings, many with systolic readings >160 despite being on losartan. She would not be a safe candidate for phentermine. Pt is interested in starting GLP1. Reviewed contraindications, discussed dosing. Discussed need for adequate protein intake while on GLP1s as well as frequent communication with our office. Pt will check in with me weekly and is aware that subsequent Rx will be dependent on frequent communication. She is interested in additional skin removal surgery. I told her that we needed to focus on weight loss for now. Offered to make a plastic surgery referral if she wants additional intervention for flanks but she declines for now. Lab ordered, pt is concerned about thyroid fuction. RTC 4mo. Orders: Orders TSH reflex Free T4 Today Z90.3 - Acquired absence of stomach [part of] C Reactive Protein Today Z90.3 - Acquired absence of stomach [part of] Vitamin B1 Today Z90.3 - Acquired absence of stomach [part of] Zinc Today Z90.3 - Acquired absence of stomach [part of] Comprehensive Met. Panel Today Z90.3 - Acquired absence of stomach [part of] IRON PROFILE Today Z90.3 - Acquired absence of stomach [part of] Hemoglobin A1c Today Z90.3 - Acquired absence of stomach [part of] Insulin Today Z90.3 - Acquired absence of stomach [part of] Vitamin D 25-OH Total Today Z90.3 - Acquired absence of stomach [part of] Ferritin Today Z90.3 - Acquired absence of stomach [part of] Vitamin A Today Z90.3 - Acquired absence of stomach [part of] Vitamin B12 and Folate Today Z90.3 - Acquired absence of stomach [part of] Complete Blood Count Auto Diff Today Z90.3 - Acquired absence of stomach [part of] Lipid Panel Today Z90.3 - Acquired absence of stomach [part of] Medications: New tirzepatide (weight loss) (Zepbound) for 4 weeks 2.5 mg (0.5 mL) subcut QWEEK 2 mL 0RF
[2025-02-23 13:43] VITALS: BP 184/80; PULSE 75; TEMP 35.6; O2SAT 98; BMI 34.0
== END 2025-02-23 14:31 | disposition home or self-care (01) ==
LOC: HO.HBS 13:17
PROVIDERS: PCP Nurse Practitioner Family; Visit Provider Physician Assistant Surgical
DX: E66.9 Obesity, unspecified (principal); Z68.34 Body mass index [BMI] 34.0-34.9, adult; Z90.3 Acquired absence of stomach [part of]; Z98.84 Bariatric surgery status
CPT/HCPCS: 99214; G2211

== ENCOUNTER → 2025-02-23 13:16 | Outpatient (BNVA) | payer MEDICARE, MEDICAID, SELFPAY | PROVIDERS: PCP Nurse Practitioner Family; Visit Provider Physician Assistant Surgical | DX: E66.9 Obesity, unspecified (principal); Z90.3 Acquired absence of stomach [part of]; L98.7 Excessive and redundant skin and subcutaneous tissue; Z79.899 Other long term (current) drug therapy | CPT/HCPCS: 99212 ==

== ENCOUNTER 2025-03-07 09:51 | Outpatient (REF) | payer MEDICARE, MEDICAID, SELFPAY ==
[2025-03-07 10:13] LABS: MANUAL DIFF FLAG NO
[2025-03-07 10:42] LABS: Hematocrit 45.1 % (37.0-47.0); Hemoglobin 14.6 g/dl (12.0-16.0); Imm Gran Abs Auto 0.01 X10*3/uL (0.00-0.03); Imm Gran Pct Auto 0.2 % (0.0-0.4); Lymphocytes Absolute Auto 1.1 X10*3/uL (1.2-4.9); Mean Corpuscular HGB Conc 32.4 g/dl (31.0-35.0); Mean Corpuscular Hemoglobin 29.5 pg (27.0-33.0); Mean Corpuscular Volume 91.1 fL (80.0-98.0); NRBC Abs Auto 0.000 X10*3/uL (0.0-0.012); NRBC Pct Auto 0.0 /100WBC (0.0-0.2); Platelet Count 163 X10*3/uL (160-400); Red Blood Count 4.95 X10*6/uL (4.20-5.50); White Blood Count 4.6 X10*3/uL (4.8-10.8)
[2025-03-07 10:50] LABS: Total Hemoglobin (HGBA1C) 2591.6977 umol/L
[2025-03-07 11:27] LABS: Alanine Aminotransferase 19 U/L (0-31); Albumin Level 4.3 g/dL (3.5-5.0); Alkaline Phosphatase 78 U/L (39-117); Anion Gap 12 (12-20); Aspartate Amino Transferase 20 U/L (5-31); Blood Urea Nitrogen 16 mg/dL (9-16); Calcium 9.5 mg/dL (8.4-10.2); Carbon Dioxide 30 mmol/L (22-29); Chloride 103 mmol/L (96-108); Cholesterol 207 mg/dL (<200); Estimated Glomerular Filt Rate > 60; Ferritin 76 ng/mL (10-250); HDL Cholesterol 105 mg/dL (>40); Iron 146 mcg/dL (30-160); Percent Iron Saturation 40 % (15-50); Potassium 4.7 mmol/L (3.3-5.1); Sodium 140 mmol/L (135-145); Total Iron Binding Capacity 363 mcg/dL (228-428); Total Protein 7.6 g/dL (6.5-8.0); Triglycerides 42 mg/dL (<150); Unsaturated Iron Binding 217 ug/dL
[2025-03-07 12:01] LABS: Folate 9.6 ng/mL (> or = 4.0); Vitamin B12 284 pg/mL (200-900)
== END 2025-03-07 09:52 | disposition home or self-care (01) ==
LOC: HO.LAB 09:51
PROVIDERS: PCP Nurse Practitioner Family; Visit Provider Physician Assistant Surgical
DX: Z13.0 Encounter for screening for diseases of the blood and blood-forming organs and certain disorders involving the immune mechanism (principal); Z13.29 Encounter for screening for other suspected endocrine disorder; Z13.21 Encounter for screening for nutritional disorder; Z13.6 Encounter for screening for cardiovascular disorders; Z90.3 Acquired absence of stomach [part of]
CPT/HCPCS: 36415; 80053; 80061; 82306; 82607; 82728; 82746; 83036; 83525; 83540; 84425; 84443; 84590; 84630; 85025; 86140